=== PATIENT | male | born 1935 | race Caucasian/White ===

== ENCOUNTER 2018-08-24 21:36 | Inpatient (IN) | payer MEDICARE, SELFPAY ==
[2018-08-24 21:38] VITALS: BP 152/93; PULSE 99; RESP 20; TEMP 36.7; O2SAT 93; BMI 40.1
--- NOTE | 2018-08-24 21:42 | EKG12_ITS ---
Test Reason : CP Blood Pressure : / mmHG Vent. Rate : 103 BPM Atrial Rate : 103 BPM P-R Int : 202 ms QRS Dur : 138 ms QT Int : 366 ms P-R-T Axes : 021 -41 023 degrees QTc Int : 479 ms Sinus tachycardia with frequent Premature ventricular complexes Left axis deviation Right bundle branch block Abnormal ECG Confirmed by YELITZA LÓPEZ, EFRA ([id number]), medical transcription editor RADHA BARROSO ([id number]) on 08/27/2018 11:54:36 AM Referred By: ALISE Confirmed By:EFRA TORRE MD
--- NOTE | 2018-08-24 21:49 | RAD_ITS ---
STUDY: X-RAY CHEST REASON FOR EXAM: Male, 82 years old. Chest pain TECHNIQUE: Single frontal view of the chest. COMPARISON: April 29, 2017 FINDINGS: Bibasilar interstitial infiltrates. There is no demonstrated pleural abnormality. Normal size heart. Normal mediastinum and makenzie. Normal visualized pulmonary arteries. Normal visualized aortic arch and descending thoracic aorta. Normal visualized thoracic spine. Normal visualized ribs, clavicles, and shoulders. There is no demonstrated abnormality of the visualized soft tissue structures of the upper abdomen. RAD/Chest 1 View (Portable) IMPRESSION: Bibasilar interstitial infiltrates Electronically Signed: Herber Abraham MD at 22:26 EDT , Service support ,
[2018-08-24 21:55] VITALS: O2SAT 92
[2018-08-24 21:56] VITALS: O2SAT 92
[2018-08-24 22:23] LABS: Absolute Lymphocyte Count 1.64 X10^3/ul (0.83-4.51); Absolute Neutrophil Count 12.4 X10^3/uL (2.0-7.7); Basophil# 0.04 X10^3/uL; Basophil% 0.2 % (0-1); Differential Indicated SCAN CRITERIA MET; Eosinophil# 0.21 X10^3/uL; Eosinophils% 1.3 % (0-5); Hematocrit 44.4 % (40-54); Hemoglobin 15.4 g/dl (13.0-16.5); Lymphocyte # 1.64 X10^3/ul (4.0); Lymphocyte % 10.1 % (19-41); Mean Corp Hgb Conc 34.7 g/gl (32-36); Mean Corpuscular Hgb 29.8 pg (27.0-32.0); Mean Corpuscular Volume 85.9 fL (80-94); Mean Platelet Vol. 10.2 fl (6.2-12.0); Monocyte# 1.79 X10^3/uL; Neutrophil # 12.36 X10^3/uL (2.7-7.7); Neutrophil % 76.4 % (47-70); POSITIVE COUNT NO; POSITIVE DIFFERENTIAL YES; POSITIVE MORPHOLOGY NO; Platelet Count 203 K/mm3 (150-450); RBC Distribution Width CV 12.8 % (11.6-14.6); RBC Distribution Width SD 39.2 fl (35.1-43.9); Red Blood Count 5.17 M/mm3 (4.6-6.2); White Blood Count 16.2 K/mm3 (4.4-11.0)
[2018-08-24 22:29] LABS: International Normalized Ratio 1.2; Prothrombin Time (Protime)PT. 14.9 SECONDS (11.7-14.9)
[2018-08-24 22:36] LABS: Anion Gap 7 (5-15); BUN 23 mg/dL (7-18); Calcium,Total 8.9 mg/dL (8.5-10.1); Chloride 105 mmol/L (98-107); Creatinine, Serum 1.15 mg/dL (0.70-1.30); EST Glomerular Filtration Rate 64 mL/min (>60); Est Glom Filt Rate - Afr Amer 78 mL/min (>60); Estimated Creatinine Clearance 58.17 ml/min; Glucose 110 mg/dL (74-106); Potassium 4.1 mmol/L (3.5-5.1); Sodium Level 139 mmol/L (136-145)
--- NOTE | 2018-08-24 22:46 | EKG12_ITS ---
Test Reason : CP Blood Pressure : / mmHG Vent. Rate : 102 BPM Atrial Rate : 102 BPM P-R Int : 212 ms QRS Dur : 136 ms QT Int : 372 ms P-R-T Axes : 023 -46 030 degrees QTc Int : 484 ms Sinus tachycardia with 1st degree A-V block with Premature atrial complexes with PVC's Left axis deviation Right bundle branch block Abnormal ECG Confirmed by YELITZA LÓPEZ, EFRA ([id number]), electronic news gathering editor RADHA BARROSO ([id number]) on 08/27/2018 11:54:15 AM Referred By: TEO Confirmed By:EFRA TORRE MD
--- NOTE | 2018-08-24 22:46 | CT_ITS ---
We are attempting to reach Mingo Son MD to discuss findings. An addendum with communication details will be sent when the communication is complete. STUDY: CTA CHEST REASON FOR EXAM: Male, 82 years old. Shortness of breath RADIATION DOSAGE (If Supplied By Facility): CTDIvol = ( 17.49 ) mGy, DLP = ( 1213.71 ) mGycm TECHNIQUE: The examination was performed with the intravenous administration of 100ML IV Isovue 370. Post-processing of the angiographic images was performed, with multiplanar reformation and 3D reconstruction. Individualized dose optimization techniques were used for this CT. COMPARISON: Chest x-ray August 24, 2018 FINDINGS: Occlusive filling defects noted within the right and left main pulmonary arteries and extending into the lobar and segmental branches bilaterally. A linear saddle embolism is also noted across the main pulmonary artery. Normal thoracic aorta and visualized great vessels. There is no demonstrated aortic dissection. Normal heart and pericardium. Calcific coronary artery disease. No sue evidence of right ventricular strain. Normal mediastinum. Normal hilar regions. Normal visualized trachea and bronchi. Bibasilar subsegmental atelectasis and congestion. Normal pulmonary parenchyma. Normal pleura. Normal chest wall structures. Normal osseous structures. Normal visualized upper abdomen. CT/CTA Chest W/WO Contrast IMPRESSION: saddle pulmonary embolism and extensive bilateral emboli. No sue evidence of right ventricular strain. Coronary artery disease. Electronically Signed: Herber Abraham MD at 23:33 EDT , Service support ,
[2018-08-24 22:52] LABS: Anisocytosis RARE; Platelet Estimate ADEQUATE (ADEQ)
[2018-08-24] MEDS: Aspirin 81 MG TAB.CHEW 324 MG PO (22:52)
[2018-08-24 22:54] VITALS: BP 164/69; PULSE 100
[2018-08-24] MEDS: 0.9% Normal Saline 1,000 ML 250 ML IV (22:59)
[2018-08-24] MEDS: Ondansetron 4 MG/2 ML Vial IV (22:59)
[2018-08-24] MEDS: Morphine 4 MG/ML Syringe IV (22:59)
[2018-08-24] MEDS: HEPARIN/D5w 25,000 UNITS 25,000 UNITS/250 ML IV.SOLN. 18 UNITS IV (23:30)
[2018-08-24] MEDS: Heparin Injection (Vial) 5,000 UNIT/ML VIAL 11000 UNIT IV (23:30)
--- NOTE | 2018-08-24 23:32 | ED.DCSUM_ITS ---
- ER Visit Summary Date of Service: 08/24/18 Chief Complaint: Chest pain History of Present Illness: The patient is a [address] Hickey and Dr. Flores. He reports that he has chest pain that began 2 hours ago while he was at rest. Is a sharp pain is 10 to 10 hours and out of 10 currently. Is wo rsened by nothing. Is also relieved by nothing. States that he has not had any nausea, vomiting, diaphoresis, shortness of breath. Patient reports that he is never had anything like this before. He does have a history of coronary artery disease and has 1 stent. He states this is not similar to that. He also has a history of PE. He reports that he was on Coumadin and then was transitioned to another medication. He is not on a medication now. However, he is a poor informant. Physical Examination: Vitals: 98.1, 152/93, 99, 20, 93% on 4 L nasal cannula. General: Well-nourished and well-developed. Head: Normocephalic atraumatic. Neck: Supple, no lymphadenopathy. No JVD. Nontender. Cardiovascular: Regular rate and rhythm. 2 out of 6 systolic murmur. Respiratory: No respiratory distress. Clear to auscultation bilaterally. Abdominal: Soft, nontender, nondistended, normal bowel sounds. No guarding, rebound, or peritoneal signs. Back: Nontender. Extremities: Nontender, 1+ edema of his lower extremities bilaterally. Skin: Normal color, no rash. Neurologic: Alert and oriented ?3. Cranial nerves II through XII are intact. Normal strength and sensation. Psych: Normal affect. Test Results: EKG is sinus tach at 103 with right bundle branch block and left axis deviation. There are also PVCs. Unchanged from May 05, 2017. Troponin is negative. INR is 1.2. Chem-7 shows BUN 23 and glucose 110. CBC shows a white count of 16.2 with 76 segmented neutrophils 10 lymphocytes and 11 monocytes. Lactic acid is 1.2. Chest x-ray is read by radiology as bibasilar and interstitial infiltrates. CTA of the chest shows extensive PE bilaterally. No evidence of RV strain. Emergency Department Course and Treatment: Patient had an IV placed. He was given morphine and fentanyl IV. He was started on heparin with bolus. Treatment Plan: Patient was discussed with Dr. Desai. He will be admitted for further evaluation and treatment. Disposition: Admitted in improved, but serious condition. Impression: 1. Pulmonary embolism. 2. Critical care time 30 minutes. This note was generated with [email or web address] dictation software. It may contain incorrect words, spelling, and punctuation that were not noted in review of the chart pr ior to signing ED Disposition - Plan for ED Patient: Disposition: [facility]
[2018-08-24 23:34] VITALS: BP 133/64; PULSE 101; RESP 27; O2SAT 93
[2018-08-24 23:37] LABS: Lactic Acid 1.2 mmol/L (0.4-2.0)
[2018-08-24] MEDS: fentaNYL 100 MCG/2 ML Ampul 50 MCG IV (23:38)
[2018-08-24 23:47] LABS: Partial Thromboplast Time 31.5 Seconds (24.1-36.2)
--- NOTE | 2018-08-24 23:52 | HP.PCM_ITS ---
Problem List (1) Saddle pulmonary embolus Status: Acute (2) Pneumonia Status: Acute (3) Right leg DVT Status: Chronic Qualifiers: Affected thrombotic vein of extremity: unspecified vein of extremity [place] [employer] nicity: chronic Qualified Code(s): I82.501 - Chronic embolism and thrombosis of unspecified deep veins of right lower extremity (4) Presence of stent in coronary artery Status: Chronic Comment: PTCA/ESTRELLA of proximal LAD 05/04/17 (5) Edema leg Status: Chronic (6) HTN (hypertension) Status: Chronic Qualifiers: Hypertension type: essential hypertension Qualified Code(s): I10 - Essential (primary) hypertension History of Present Illness Date of Admission: 08/24/18 Chief Complaint: Shortness of breath and chest pain The patient is a 82 year old M with PMH as below who presents with chest pain shortness of breath. He states that both started today suddenly without rad iation. He also states that he has been having a dry nonproductive cough since . His was in the room had asked him to come to the ER earlier but he refused until today when he said the shortness of breath and the chest pain started. In the ER CTA of his chest demonstrated a large saddle pulmonary embolism and a troponin was obtained which was normal. He does have a history of DVT and is a poor historian as is the . He states that he was on Coumadin initially and then may have been transition to Xarelto though he states that he has not been taking it for several weeks because 1 of his outpatient physicians was concerned about the bleeding risk since he is on aspirin and Plavix because of a stent placed in May of last year. In the ER he was afebrile but did have a leukocytosis to 16 as well as tachycardia and tachypnea. Past Medical History Past Medical History (Chronic Problems): Chronic Problems (Last Reviewed 08/22/18 @ 14:18 by Carolyn Norwood) Right leg DVT (Chronic) Presence of stent in coronary artery (Chronic 05/04/17) PTCA/ESTRELLA of proximal LAD 05/04/17 Atherosclerosis of coronary artery of [place] heart without angina pectoris (Chronic) PTCA/ESTRELLA of proximal LAD 05/04/17 Edema leg (Chronic) HTN (hypertension) (Chronic) Medical History: Medical History (Last Reviewed 08/22/18 @ 14:18 by Carolyn Norwood) Right leg DVT (Chronic) I82.401 Atherosclerosis of coronary artery of [place] heart without angina pectoris (Chronic) I25.10 PTCA/ESTRELLA of proximal LAD 05/04/17 Edema leg (Chronic) R60.0 HTN (hypertension) (Chronic) I10 Incontinence R32 BPH (benign prostatic hyperplasia) N40.0 Dementia F03.90 Rhabdomyolysis M62.82 BPH (benign prostatic hyperplasia) (Inactive) N40.0 Bronchitis (Inactive) J40 Cellulitis of right lower extremity (Inactive) L03.115 Hx of deep venous thrombosis (Inactive) Z86.718 Influenza A (Inactive) J10.1 Rhabdomyolysis (Inactive) M62.82 Right leg DVT (Inactive) I82.401 Tinea pedis of right foot (Inactive) B35.3 Troponin I above reference range (Inactive) R74.8 Urinary retention due to benign prostatic hyperplasia (Inactive) N40.1, R33.8 Weakness (Inactive) R53.1 Allergies Penicillins [PCN] Allergy (Verified 08/24/18 21:37) Rash Home Medications: Ambulatory Orders Medication Instructions Recorded Lisinopril [Zestril] 30 mg PO DAILY 06/16/15 Acetaminophen [Tylenol Tablet] 650 mg PO Q6H PRN PRN #0 tab 05/05/17 Aspirin E.C. [Ecotrin] 81 mg PO DAILY@0800 #30 tab 05/05/17 Atorvastatin Calcium [Lipitor] 40 mg PO QHS #30 tab 05/05/17 Carvedilol [Coreg (Beta Jose)] 3.125 mg PO BID #60 tab 05/05/17 Clopidogrel Bisulfate [Plavix] 75 mg PO DAILY #30 tab 05/05/17 Finasteride [Proscar] 5 mg PO DAILY #30 tab 05/05/17 furosemide 20 mg tablet 20 mg PO QDAY 06/23/17 tamsulosin 0.4 mg capsule 0.8 mg PO QHS cap 10/27/17 rivaroxaban 20 mg tablet 20 mg PO DAILY 02/15/18 saw palmetto fruit 450 mg capsule 450 mg PO BID 02/15/18 Surgical History: Surgical History (Last Reviewed 08/22/18 @ 14:18 by Carolyn Norwood) Presence of stent in coronary artery (Chronic) Onset Date: 05/04/17 Z95.5 PTCA/ESTRELLA of proximal LAD 05/04/17 Surgical History: noncontributory Psychiatric History: No pertinent psych hx Smoking Status: Former smoker Tobacco Use: Cigarettes Alcohol: None Drugs: None - *Family History Maternal Family History: Family History (Last Reviewed 08/22/18 @ 14:19 by Carolyn Norwood) Father Myocardial infarction History Items: Unknown Paternal Family History: Family History (Last Reviewed 08/22/18 @ 14:19 by Carolyn Norwood) Father Myocardial infarction History Items: Unknown Review of Systems Constitutional: Denies: Chills, Fever, Weight Change HEENT: Denies: Head Aches, Sinus Congestion, Sinus Drainage Cardiovascular: Reports: Chest Pain. Denies: Palpitations Respiratory: Reports: Cough, Shortness of Breath. Denies: Shortness of breath at rest, Sputum production Gastrointestinal: Denies: Abdominal Pain, Nausea, Vomiting Genitourinary: Denies: Dysuria Musculoskeletal: Denies: Joint Pain, Joint Tenderness Skin: Denies: Rash, Wounds Neurological: Denies: Numbness, Tingling, Focal weakness Psychiatric: Denies: Anxiety, Depression Hematologic/ Lymphatic: Denies: Easy Bruising, Easy Bleeding VTE Information - Inpt Only VTE Present on Admission: No Patient Problems: Active and Suspected Problems (Last Reviewed 08/22/18 @ 14:18 by Carolyn Norwood) Saddle pulmonary embolus (Acute) Pneumonia (Acute) - Physical Exam General: Alert, Oriented x3, Cooperative, No apparent distress HEENT: Atraumatic, PERRLA, EOMI, Normocephalic Oral: Dry Mucosa Neck: Supple, No JVD, Trachea Midline Lungs: Clear to auscultation, Normal air movement, No rhonchi, No wheeze, No rales, Diminished Cardiovascular: Regular Rhythm, Normal S1, Normal S2, No murmurs, Tachycardic Abdomen: Soft, Non Tender, Non-Distended, No Hepato-splenomegaly Extremities: Capillary Refill Less than 3 Seconds, Edema - Trace Skin: No rashes, No breakdown Neurological: Neuro grossly intact, Sensory exam intact to light touch and pain Psych/Mental Status: Normal Affect, Appropriate Vital Signs Temp Pulse Resp BP Pulse Ox 98.1 F 101 H 27 H 133/64 H 93 08/24/18 21:38 08/24/18 23:34 08/24/18 23:34 08/24/18 23:34 08/24/18 23:34 Oxygen Flow Rate (L/min) 5 Oxygen Delivery Method Nasal Cannula Weight: 321 lb 6.943 oz Body Mass Index (BMI) 40.1 Laboratory Tests Past 24 Hrs 08/24/18 08/24/18 08/24/18 22:05 22:05 22:05 WBC 16.2 H RBC 5.17 Hgb 15.4 Hct 44.4 MCV 85.9 MCH 29.8 MCHC 34.7 RDW 12.8 RDW Differential 39.2 Plt Count 203 MPV 10.2 Immature Gran % (Auto) 1.000 H Neut % (Auto) 76.4 H Lymph % (Auto) 10.1 L [place] % (Auto) 11.0 H Eos % (Auto) 1.3 Baso % (Auto) 0.2 Absolute Neuts (auto) 12.4 H Absolute Lymphs (auto) 1.64 Total Counted Not Reportable Differential Comment SEE COMMENT Diff Path Review May foll Platelet Estimate ADEQUATE Anisocytosis RARE PT 14.9 INR 1.2 APTT Sodium 139 Potassium 4.1 Chloride 105 Carbon Dioxide 27.0 Anion Gap 7 BUN 23 H Creatinine 1.15 Estim Creat Clear Calc 58.17 Est GFR (MDRD) Af Amer 78 Est GFR (MDRD) Non-Af 64 BUN/Creatinine Ratio 20.0 Glucose 110 H Lactic Acid Calcium 8.9 Troponin I < 0.015 08/24/18 08/24/18 22:05 23:01 WBC RBC Hgb Hct MCV MCH MCHC RDW RDW Differential Plt Count MPV Immature Gran % (Auto) Neut % (Auto) Lymph % (Auto) [place] % (Auto) Eos % (Auto) Baso % (Auto) Absolute Neuts (auto) Absolute Lymphs (auto) Total Counted Differential Comment Diff Path Review Platelet Estimate Anisocytosis PT INR APTT Pending Sodium Potassium Chloride Carbon Dioxide Anion Gap BUN Creatinine Estim Creat Clear Calc Est GFR (MDRD) Af Amer Est GFR (MDRD) Non-Af BUN/Creatinine Ratio Glucose Lactic Acid 1.2 Calcium Troponin I Assessment/Plan All Active Problems (Last Reviewed 08/22/18 @ 14:18 by Carolyn Nrowood) Saddle pulmonary embolus (Acute) Pneumonia (Acute) Abnormal stress test (Resolved) 1. Bilateral gram-positive pneumonia at the bases/saddle pulmonary embolism/history of DVT -Given the fact that he is likely not been on any blood thinners, will reinstitute Xarelto with his first dose now and then his next dose at 8 AM -He was given a heparin bolus and a drip in the ER which can be discontinued after his initial dose of Xarelto -We will hold his aspirin and just continue his Plavix -He is hemodynamically stable therefore no need to obtain an echo -We will continue with Rocephin and azithromycin for his pneumonia, will not consider as sepsis given that the Sirs criteria are probably met because of the PE and his lactic acid is normal at 1.2 -Blood cultures are pending 2. CAD status post stent in May 2017/HLD/HTN -We will hold his aspirin but continue with the Plavix given that he should be on lifelong Xarelto -Continue with the Lipitor, Coreg, lisinopril, but will hold the Lasix for now 3. BPH -Stable -Continue with Proscar and Flomax DVT: Xarelto Code Visit Inpatient E&M: 62442 Init Hosp L3
[2018-08-25] VITALS (16 sets, daily range): BP systolic 105–152; BP diastolic 50–79; PULSE 67–97; RESP 18–21; TEMP 36.4–37.5; O2SAT 92–96; BMI 39.5
[2018-08-25] MEDS: Ceftriaxone 1 GM/50 ML BAG IV (00:18)
--- NOTE | 2018-08-25 01:13 | HP.PCM_ITS ---
Problem List (1) Saddle pulmonary embolus Status: Acute (2) Pneumonia Status: Acute (3) Right leg DVT Status: Chronic Qualifiers: Affected thrombotic vein of extremity: unspecified vein of extremity Information Coordinator nicity: chronic Qualified Code(s): I82.501 - Chronic embolism and thrombosis of unspecified deep veins of right lower extremity (4) Presence of stent in coronary artery Status: Chronic Comment: PTCA/ESTRELLA of proximal LAD 05/04/17 (5) HTN (hypertension) Status: Chronic Qualifiers: Hypertension type: essential hypertension Qualified Code(s): I10 - Essential (primary) hypertension History of Present Illness Date of Admission: 08/24/18 Chief Complaint: Shortness of breath and chest pain The patient is a 82 year old M with PMH as below who presents with chest pain shortness of breath. He states that both started today suddenly without radiation. He also states that he has been having a dry nonproductive cough since . His was in the room had asked him to come to the ER earlier but he refused until today when he said the shortness of breath and the chest pain started. In the ER CTA of his chest demonstrated a large saddle pulmonary embolism and a troponin was obtained which was normal. He does have a history of DVT and is a poor historian as is the . He states that he was on Coumadin initially and then may have been transition to Xarelto though he states that he has not been taking it for several weeks because 1 of his outpatient physicians was concerned about the bleeding risk since he is on aspirin and Plavix because of a stent placed in May of last year. In the ER he was afebrile but did have a leukocytosis to 16 as well as tachycardia and tachypnea. Past Medical History Past Medical History (Chronic Problems): Chronic Problems (Last Reviewed 08/22/18 @ 14:18 by Carolyn Norwood) Right leg DVT (Chronic) Presence of stent in coronary artery (Chronic 05/04/17) PTCA/ESTRELLA of proximal LAD 05/04/17 Atherosclerosis of coronary artery of [place] heart without angina pectoris (Chronic) PTCA/ESTRELLA of proximal LAD 05/04/17 Edema leg (Chronic) HTN (hypertension) (Chronic) Medical History: Medical History (Last Reviewed 08/22/18 @ 14:18 by Carolyn Norwood) Right leg DVT (Chronic) I82.401 Atherosclerosis of coronary artery of [place] heart without angina pectoris (Chronic) I25.10 PTCA/ESTRELLA of proximal LAD 05/04/17 Edema leg (Chronic) R60.0 HTN (hypertension) (Chronic) I10 Incontinence R32 BPH (benign prostatic hyperplasia) N40.0 Dementia F03.90 Rhabdomyolysis M62.82 BPH (benign prostatic hyperplasia) (Inactive) N40.0 Bronchitis (Inactive) J40 Cellulitis of right lower extremity (Inactive) L03.115 Hx of deep venous thrombosis (Inactive) Z86.718 Influenza A (Inactive) J10.1 Rhabdomyolysis (Inactive) M62.82 Right leg DVT (Inactive) I82.401 Tinea pedis of right foot (Inactive) B35.3 Troponin I above reference range (Inactive) R74.8 Urinary retention due to benign prostatic hyperplasia (Inactive) N40.1, R33.8 Weakness (Inactive) R53.1 Allergies Penicillins [PCN] Allergy (Verified 08/24/18 21:37) Rash Home Medications: Ambulatory Orders Medication Instructions Recorded Lisinopril [Zestril] 30 mg PO DAILY 06/16/15 Acetaminophen [Tylenol Tablet] 650 mg PO Q6H PRN PRN #0 tab 05/05/17 Aspirin E.C. [Ecotrin] 81 mg PO DAILY@0800 #30 tab 05/05/17 Atorvastatin Calcium [Lipitor] 40 mg PO QHS #30 tab 05/05/17 Carvedilol [Coreg (Beta Jose)] 3.125 mg PO BID #60 tab 05/05/17 Clopidogrel Bisulfate [Plavix] 75 mg PO DAILY #30 tab 05/05/17 Finasteride [Proscar] 5 mg PO DAILY #30 tab 05/05/17 furosemide 20 mg tablet 20 mg PO QDAY 06/23/17 tamsulosin 0.4 mg capsule 0.8 mg PO QHS cap 10/27/17 rivaroxaban 20 mg tablet 20 mg PO DAILY 02/15/18 saw palmetto fruit 450 mg capsule 450 mg PO BID 02/15/18 Surgical History: Surgical History (Last Reviewed 08/22/18 @ 14:18 by Carolyn Norwood) Presence of stent in coronary artery (Chronic) Onset Date: 05/04/17 Z95.5 PTCA/ESTRELLA of proximal LAD 05/04/17 Surgical History: noncontributory Psychiatric History: No pertinent psych hx Smoking Status: Former smoker Tobacco Use: Cigarettes Alcohol: None Drugs: None - *Family History Maternal Family History: Family History (Last Reviewed 08/22/18 @ 14:19 by Carolyn Norwood) Father Myocardial infarction History Items: Unknown Paternal Family History: Family History (Last Reviewed 08/22/18 @ 14:19 by Carolyn Norwood) Father Myocardial infarction History Items: Unknown Review of Systems Constitutional: Denies: Chills, Fever, Weight Change HEENT: Denies: Head Aches, Sinus Congestion, Sinus Drainage Cardiovascular: Reports: Chest Pain. Denies: Palpitations Respiratory: Reports: Cough, Shortness of Breath. Denies: Shortness of breath at rest, Sputum production Gastrointestinal: Denies: Abdominal Pain, Nausea, Vomiting Genitourinary: Denies: Dysuria Musculoskeletal: Denies: Joint Pain, Joint Tenderness Skin: Denies: Rash, Wounds Neurological: Denies: Numbness, Tingling, Focal weakness Psychiatric: Denies: Anxiety, Depression Hematologic/ Lymphatic: Denies: Easy Bruising, Easy Bleeding VTE Information - Inpt Only VTE Present on Admission: No Patient Problems: Active and Suspected Problems (Last Reviewed 08/22/18 @ 14:18 by Carolyn Norwood) Saddle pulmonary embolus (Acute) Pneumonia (Acute) - Physical Exam General: Alert, Oriented x3, Cooperative, No apparent distress HEENT: Atraumatic, PERRLA, EOMI, Normocephalic Oral: Dry Mucosa Neck: Supple, No JVD, Trachea Midline Lungs: Clear to auscultation, Normal air movement, No rhonchi, No wheeze, No rales, Diminished Cardiovascular: Regular Rhythm, Normal S1, Normal S2, No murmurs, Tachycardic Abdomen: Soft, Non Tender, Non-Distended, No Hepato-splenomegaly Extremities: Capillary Refill Less than 3 Seconds, Edema - Trace Skin: No rashes, No breakdown Neurological: Neuro grossly intact, Sensory exam intact to light touch and pain Psych/Mental Status: Normal Affect, Appropriate Vital Signs Temp Pulse Resp BP Pulse Ox 99.5 F H 97 20 H 152/78 H 93 08/25/18 00:42 08/25/18 00:42 08/25/18 00:42 08/25/18 00:42 08/25/18 00:42 Oxygen Flow Rate (L/min) 5 Oxygen Delivery Method Nasal Cannula Weight: 316 lb 5.813 oz Body Mass Index (BMI) 39.5 Laboratory Tests Past 24 Hrs 08/24/18 08/24/18 08/24/18 22:05 22:05 22:05 WBC 16.2 H RBC 5.17 Hgb 15.4 Hct 44.4 MCV 85.9 MCH 29.8 MCHC 34.7 RDW 12.8 RDW Differential 39.2 Plt Count 203 MPV 10.2 Immature Gran % (Auto) 1.000 H Neut % (Auto) 76.4 H Lymph % (Auto) 10.1 L [place] % (Auto) 11.0 H Eos % (Auto) 1.3 Baso % (Auto) 0.2 Absolute Neuts (auto) 12.4 H Absolute Lymphs (auto) 1.64 Total Counted Not Reportable Differential Comment SEE COMMENT Diff Path Review May foll Platelet Estimate ADEQUATE Anisocytosis RARE PT 14.9 INR 1.2 APTT Sodium 139 Potassium 4.1 Chloride 105 Carbon Dioxide 27.0 Anion Gap 7 BUN 23 H Creatinine 1.15 Estim Creat Clear Calc 58.17 Est GFR (MDRD) Af Amer 78 Est GFR (MDRD) Non-Af 64 BUN/Creatinine Ratio 20.0 Glucose 110 H Lactic Acid Calcium 8.9 Troponin I < 0.015 08/24/18 08/24/18 22:05 23:01 WBC RBC Hgb Hct MCV MCH MCHC RDW RDW Differential Plt Count MPV Immature Gran % (Auto) Neut % (Auto) Lymph % (Auto) [place] % (Auto) Eos % (Auto) Baso % (Auto) Absolute Neuts (auto) Absolute Lymphs (auto) Total Counted Differential Comment Diff Path Review Platelet Estimate Anisocytosis PT INR APTT 31.5 Sodium Potassium Chloride Carbon Dioxide Anion Gap BUN Creatinine Estim Creat Clear Calc Est GFR (MDRD) Af Amer Est GFR (MDRD) Non-Af BUN/Creatinine Ratio Glucose Lactic Acid 1.2 Calcium Troponin I Assessment/Plan All Active Problems (Last Reviewed 08/22/18 @ 14:18 by Carolyn Norwood) Saddle pulmonary embolus (Acute) Pneumonia (Acute) Abnormal stress test (Resolved) 1. Bilateral gram-positive pneumonia at the bases/saddle pulmonary embolism -Given the fact that he is likely not been on any blood thinners, will reinstitute Xarelto with his first dose now and then his next dose at 8 AM -He was given a heparin bolus and a drip in the ER which can be discontinued after his initial dose of Xarelto -We will hold his aspirin and just continue his Plavix -He is hemodynamically stable therefore no need to obtain an echo -We will continue with Rocephin and azithromycin for his pneumonia -Blood cultures are pending 2. Coronary artery disease status post stent in May 2017/HLD/HTN
[2018-08-25] MEDS: Rivaroxaban 15 MG Tablet PO ×3 (01:37→16:19)
[2018-08-25] MEDS: 0.9% NaCl Peripheral Flush Adult/Peds IV ×3 (01:37→22:00)
--- NOTE | 2018-08-25 01:39 | NURSING ---
SPOKE TO [facility] STATED TO GIVE XARELTO THEN DISCONTINUED HEPARIN DRIP.
[2018-08-25] MEDS: Morphine 2 MG/ML Syringe IV (02:25)
[2018-08-25] MEDS: 0.9% Normal Saline 1,000 ML 100 ML IV (05:33)
[2018-08-25 08:07] LABS: Absolute Lymphocyte Count 2.17 X10^3/ul (0.83-4.51); Absolute Neutrophil Count 10.5 X10^3/uL (2.0-7.7); Basophil# 0.04 X10^3/uL; Basophil% 0.3 % (0-1); Eosinophils% 0.7 % (0-5); Hematocrit 41.1 % (40-54); Hemoglobin 13.8 g/dl (13.0-16.5); Lymphocyte # 2.17 X10^3/ul (4.0); Lymphocyte % 14.4 % (19-41); Mean Corp Hgb Conc 33.6 g/gl (32-36); Mean Corpuscular Hgb 29.7 pg (27.0-32.0); Mean Corpuscular Volume 88.4 fL (80-94); Mean Platelet Vol. 10.1 fl (6.2-12.0); Monocyte# 2.19 X10^3/uL; Monocyte% 14.5 % (0-10); Neutrophil # 10.46 X10^3/uL (2.7-7.7); Neutrophil % 69.4 % (47-70); Platelet Count 161 K/mm3 (150-450); RBC Distribution Width CV 12.8 % (11.6-14.6); RBC Distribution Width SD 40.5 fl (35.1-43.9); Red Blood Count 4.65 M/mm3 (4.6-6.2); White Blood Count 15.1 K/mm3 (4.4-11.0)
[2018-08-25 08:17] LABS: Anion Gap 5 (5-15); BUN 21 mg/dL (7-18); BUN/Creat Ratio 20.6 RATIO (10-20); Calcium,Total 8.2 mg/dL (8.5-10.1); Chloride 106 mmol/L (98-107); Creatinine, Serum 1.02 mg/dL (0.70-1.30); EST Glomerular Filtration Rate 74 mL/min (>60); Est Glom Filt Rate - Afr Amer 90 mL/min (>60); Estimated Creatinine Clearance 65.58 ml/min; Glucose 108 mg/dL (74-106); Potassium 4.1 mmol/L (3.5-5.1); Sodium Level 139 mmol/L (136-145)
[2018-08-25 08:33] LABS: Differential Indicated SCAN CRITERIA MET; POSITIVE COUNT NO; POSITIVE DIFFERENTIAL YES; POSITIVE MORPHOLOGY NO
[2018-08-25 09:06] LABS: Differential Comment SCANNED
--- NOTE | 2018-08-25 09:21 | PCM.PN.HOSP ---
Patient Problems: Active and Suspected Problems (Last Reviewed 08/22/18 @ 14:18 by Carolyn Norwood) Saddle pulmonary embolus (Acute) Pneumonia (Acute) Subjective: Patient is an 82-year-old gentleman with previous history of DVT involving the lower extremity who presented with significant chest discomfort. Imaging studies obtained in the emergency department demonstrated saddle pulmonary embolism and extensive bilateral emboli. No sue evidence of right ventricular strain. Patient admitted to a monitored bed for further management Objective: GENERAL: cooperative HEENT: Atraumatic; moist oral mucosa EYES; Anicteric, Normal Conjunctiva NECK; supple, normal thyroid, no distended JVD. RESPIRATORY: Diminished to auscultation bilaterally, CARDIOVASCULAR: Regular S1 S2, GI: soft, non-tender, normoactive bowel sounds, : No Renal angle tenderness; EXTREMITIES: No edema, no clubbing, no cyanosis. MUSCULOSKELETAL: No Joint Tenderness; NEURO: Awake; no lateralizing signs. SKIN: No Rash PSYCH; Normal affect Vitals/I&O's: Vital Signs Temp Pulse Resp BP Pulse Ox 98.9 F 84 18 140/73 H 93 08/25/18 05:35 08/25/18 07:41 08/25/18 05:35 08/25/18 05:35 08/25/18 05:35 Oxygen Flow Rate (L/min) 5 Oxygen Delivery Method Nasal Cannula Weight: 143.5 kg Body Mass Index (BMI) 39.5 Intake and Output for Last 24 Hours 08/23/18 08/24/18 08/25/18 23:59 23:59 23:59 Intake Total 778 / 778 Balance 778 / 778 Laboratory Results 08/24/18 22:05: WBC 16.2 H, RBC 5.17, Hgb 15.4, Hct 44.4, MCV 85.9, MCH 29.8, MCHC 34.7, RDW 12.8, RDW Differential 39.2, Plt Count 203, MPV 10.2, Immature Gran % (Auto) 1.000 H, Neut % (Auto) 76.4 H, Lymph % (Auto) 10.1 L, [place] % (Auto) 11.0 H, Eos % (Auto) 1.3, Baso % (Auto) 0.2, Absolute Neuts (auto) 12.4 H, Absolute Lymphs (auto) 1.64, Total Counted Not Reportable, Differential Comment SEE COMMENT, Diff Path Review May foll, Platelet Estimate ADEQUATE, Anisocytosis RARE 08/24/18 22:05: PT 14.9, INR 1.2 08/24/18 22:05: Sodium 139, Potassium 4.1, Chloride 105, Carbon Dioxide 27.0, Anion Gap 7, BUN 23 H, Creatinine 1.15, Estim Creat Clear Calc 58.17, Est GFR (MDRD) Af Amer 78, Est GFR (MDRD) Non-Af 64, BUN/Creatinine Ratio 20.0, Glucose 110 H, Calcium 8.9, Troponin I < 0.015 08/24/18 22:05: APTT 31.5 08/24/18 23:01: Lactic Acid 1.2 08/25/18 06:45: Sodium 139, Potassium 4.1, Chloride 106, Carbon Dioxide 28.0, Anion Gap 5, BUN 21 H, Creatinine 1.02, Estim Creat Clear Calc 65.58, Est GFR (MDRD) Af Amer 90, Est GFR (MDRD) Non-Af 74, BUN/Creatinine Ratio 20.6 H, Glucose 108 H, Calcium 8.2 L 08/25/18 06:45: WBC 15.1 H, RBC 4.65, Hgb 13.8, Hct 41.1, MCV 88.4, MCH 29.7, MCHC 33.6, RDW 12.8, RDW Differential 40.5, Plt Count 161, MPV 10.1, Immature Gran % (Auto) 0.700, Neut % (Auto) 69.4, Lymph % (Auto) 14.4 L, Cannon % (Auto) 14.5 H, Eos % (Auto) 0.7, Baso % (Auto) 0.3, Absolute Neuts (auto) 10.5 H, Absolute Lymphs (auto) 2.17, Total Counted Not Reportable, Differential Comment SCANNED Current Medications Sodium Chloride () 1,000 mls @ 100 mls/hr IV .Q10H [facility] Last Admin: 08/25/18 05:33 Dose: 100 mls/hr Azithromycin 500 mg/ Dextrose 255 mls @ 250 mls/hr IV Q24H [facility] Ceftriaxone Sodium 2 gm/ (Sodium Chloride) 50 mls @ 100 mls/hr IV Q24H [facility] Sodium Chloride () 250 mls @ 15 mls/hr IV .[id number] PRN PRN Reason: SALINE FLUSH Magnesium Hydroxide (Milk Of Magnesia) 30 ml PO DAILY PRN PRN Reason: Constipation Rivaroxaban (Xarelto) 15 mg PO BIDCM [facility] Last Admin: 08/25/18 08:20 Dose: 15 mg Sodium Chloride () 5 - 15 ml IV UD PRN PRN Reason: SALINE FLUSH Last Admin: 08/25/18 02:25 Dose: 10 ml Medical Necessity - Tobacco Use Smoking Status: Former smoker Tobacco Use: Cigarettes Assessment/Plan All Active Problems (Last Reviewed 08/22/18 @ 14:18 by Carolyn Norwood) Saddle pulmonary embolus (Acute) Pneumonia (Acute) Abnormal stress test (Resolved) Patient is an 82-year-old gentleman with previous history of DVT involving the lower extremity who presented with significant chest discomfort. Imaging studies obtained in the emergency department demonstrated saddle pulmonary embolism and extensive bilateral emboli. No sue evidence of right ventricular strain. Patient admitted to a monitored bed for further management 1. 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 As stated above patient admitted to monitored bed systemic anticoagulation with heparin initiated with plans to switch to Xarelto. Echo ordered for RV function assessment 2. Bilateral pulmonary infiltrate my suspicion is more for pulmonary infarction given how extensive patient's VTE was patient however 2 days low-grade fever (his VTE could explain for that however he had elevated WBC count and was subsequently started on Rocephin and Zithromax 3. Previous history of DVT 4. CAD status post stent in May 2017 patient is on dual antiplatelet therapy 5. Hypertension-blood pressure controlled, home medications continued with dose adjustment as needed 6. Dyslipidemia-patient is on statin therapy, continued at home dose 7. BPH patient is on Proscar and Flomax 8. Obesity with BMI of 39.4 Active Medications Acetaminophen (Tylenol) 650 mg PO Q6H PRN PRN PRN Reason: PAIN Aspirin (Ecotrin) 81 mg PO DAILY@0800 [facility] Atorvastatin Calcium (Lipitor) 40 mg PO QHS [facility] Carvedilol (Coreg) 3.125 mg PO BID [facility] Clopidogrel Bisulfate (Plavix) 75 mg PO DAILY [facility] Finasteride (Proscar) 5 mg PO DAILY [facility] Azithromycin 500 mg/ Dextrose 255 mls @ 250 mls/hr IV Q24H [facility] Ceftriaxone Sodium 2 gm/ (Sodium Chloride) 50 mls @ 100 mls/hr IV Q24H [facility] Sodium Chloride () 250 mls @ 15 mls/hr IV .[id number] PRN PRN Reason: SALINE FLUSH Magnesium Hydroxide (Milk Of Magnesia) 30 ml PO DAILY PRN PRN Reason: Constipation Morphine Sulfate () 4 mg IV Q3H PRN PRN PRN Reason: SEVERE PAIN (6-10/10) Non-Formulary Medication (Lisinopril [Zestril]) 30 mg PO DAILY [facility] Oxycodone HCl (Oxyir) 5 mg PO Q4H PRN PRN PRN Reason: PAIN Rivaroxaban (Xarelto) 15 mg PO BIDCM [facility] Last Admin: 08/25/18 08:20 Dose: 15 mg Sodium Chloride () 5 - 15 ml IV UD PRN PRN Reason: SALINE FLUSH Last Admin: 08/25/18 02:25 Dose: 10 ml Tamsulosin HCl (Flomax) 0.8 mg PO QHS [facility] Clinical Impression(s) from Imaging Studies Chest X-Ray 08/24/18 21:49 IMPRESSION: Bibasilar interstitial infiltrates Electronically Signed: Herber Abraham MD at 22:26 EDT , Service support , Chest CTA 08/24/18 22:46 IMPRESSION: saddle pulmonary embolism and extensive bilateral emboli. No sue evidence of right ventricular strain. Coronary artery disease. Electronically Signed: Herber Abraham MD at 23:33 EDT , Service support , ADDENDUM: 08/24/18 2350 IMPRESSION: saddle pulmonary embolism and extensive bilateral emboli. No sue evidence of right ventricular strain. Coronary artery disease. N.B. : The above information has been verbally conveyed by Herber Abraham MD to Mingo Son MD, on 08/24/2018 23:43:12 (ET). Electronically Signed: Herber Abraham MD at 23:33 EDT , Service support , Code Visit Inpatient E&M: 66673 Subs Hosp L3
--- NOTE | 2018-08-25 09:26 | PN_ITS ---
Patient Problems: Active and Suspected Problems (Last Reviewed 08/22/18 @ 14:18 by Carolyn Norwood) Saddle pulmonary embolus (Acute) Pneumonia (Acute) Subjective: Patient is an 82-year-old gentleman with previous history of DVT involving the lower extremity who presented with significant chest discomfort. Imaging studies obtained in the emergency department demonstrated saddle pulmonary embolism and extensive bilateral emboli. No sue evidence of right ventricular strain. Patient admitted to a monitored bed for further management Objective: GENERAL: cooperative HEENT: Atraumatic; moist oral mucosa EYES; Anicteric, Normal Conjunctiva NECK; supple, normal thyroid, no distended JVD. RESPIRATORY: Diminished to auscultation bilaterally, CARDIOVASCULAR: Regular S1 S2, GI: soft, non-tender, normoactive bowel sounds, : No Renal angle tenderness; EXTREMITIES: No edema, no clubbing, no cyanosis. MUSCULOSKELETAL: No Joint Tenderness; NEURO: Awake; no lateralizing signs. SKIN: No Rash PSYCH; Normal affect Vitals/I&O's: Vital Signs Temp Pulse Resp BP Pulse Ox 98.9 F 84 18 140/73 H 93 08/25/18 05:35 08/25/18 07:41 08/25/18 05:35 08/25/18 05:35 08/25/18 05:35 Oxygen Flow Rate (L/min) 5 Oxygen Delivery Method Nasal Cannula Weight: 143.5 kg Body Mass Index (BMI) 39.5 Intake and Output for Last 24 Hours 08/23/18 08/24/18 08/25/18 23:59 23:59 23:59 Intake Total 778 / 778 Balance 778 / 778 Laboratory Results 08/24/18 22:05: WBC 16.2 H, RBC 5.17, Hgb 15.4, Hct 44.4, MCV 85.9, MCH 29.8, MCHC 34.7, RDW 12.8, RDW Differential 39.2, Plt Count 203, MPV 10.2, Immature Gran % (Auto) 1.000 H, Neut % (Auto) 76.4 H, Lymph % (Auto) 10.1 L, [place] % (Auto) 11.0 H, Eos % (Auto) 1.3, Baso % (Auto) 0.2, Absolute Neuts (auto) 12.4 H , Absolute Lymphs (auto) 1.64, Total Counted Not Reportable, Differential Comment SEE COMMENT, Diff Path Review May foll, Platelet Estimate ADEQUATE, Anisocytosis RARE 08/24/18 22:05: PT 14.9, INR 1.2 08/24/18 22:05: Sodium 139, Potassium 4.1, Chloride 105, Carbon Dioxide 27.0, Anion Gap 7, BUN 23 H, Creatinine 1.15, Estim Creat Clear Calc 58.17, Est GFR (MDRD) Af Amer 78, Est GFR (MDRD) Non-Af 64, BUN/Creatinine Ratio 20.0, Glucose 110 H, Calcium 8.9, Troponin I < 0.015 08/24/18 22:05: APTT 31.5 08/24/18 23:01: Lactic Acid 1.2 08/25/18 06:45: Sodium 139, Potassium 4.1, Chloride 106, Carbon Dioxide 28.0, Anion Gap 5, BUN 21 H, Creatinine 1.02, Estim Creat Clear Calc 65.58, Est GFR (MDRD) Af Amer 90, Est GFR (MDRD) Non-Af 74, BUN/Creatinine Ratio 20.6 H, Glucose 108 H, Calcium 8.2 L 08/25/18 06:45: WBC 15.1 H, RBC 4.65, Hgb 13.8, Hct 41.1, MCV 88.4, MCH 29.7, MCHC 33.6, RDW 12.8, RDW Differential 40.5, Plt Count 161, MPV 10.1, Immature Gran % (Auto) 0.700, Neut % (Auto) 69.4, Lymph % (Auto) 14.4 L, [place] % (Auto) 14.5 H, Eos % (Auto) 0.7, Baso % (Auto) 0.3, Absolute Neuts (auto) 10.5 H, Absolute Lymphs (auto) 2.17, Total Counted Not Reportable, Differential Comment SCANNED Current Medications Sodium Chloride () 1,000 mls @ 100 mls/hr IV .Q10H [facility] Last Admin: 08/25/18 05:33 Dose: 100 mls/hr Azithromycin 500 mg/ Dextrose 255 mls @ 250 mls/hr IV Q24H [facility] Ceftriaxone Sodium 2 gm/ (Sodium Chloride) 50 mls @ 100 mls/hr IV Q24H [facility] Sodium Chloride () 250 mls @ 15 mls/hr IV .[id number] PRN PRN Reason: SALINE FLUSH Magnesium Hydroxide (Milk Of Magnesia) 30 ml PO DAILY PRN PRN Reason: Constipation Rivaroxaban (Xarelto) 15 mg PO BIDCM [facility] Last Admin: 08/25/18 08:20 Dose: 15 mg Sodium Chloride () 5 - 15 ml IV UD PRN PRN Reason: SALINE FLUSH Last Admin: 08/25/18 02:25 Dose: 10 ml Medical Necessity - Tobacco Use Smoking Status: Former smoker Tobacco Use: Cigarettes Assessment/Plan All Active Problems (Last Reviewed 08/22/18 @ 14:18 by Carolyn Norwood) Saddle pulmonary embolus (Acute) Pneumonia (Acute) Abnormal stress test (Resolved) Patient is an 82-year-old gentleman with previous history of DVT involving the lower extremity who presented with significant chest discomfort. Imaging studies obtained in the emergency department demonstrated saddle pulmonary embolism and extensive bilateral emboli. No sue evidence of right ventricular strain. Patient admitted to a monitored bed for further management 1. 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 As stated above patient admitted to monitored bed systemic anticoagulation with heparin initiated with plans to switch to Xarelto. Echo ordered for RV function assessment 2. Bilateral pulmonary infiltrate my suspicion is more for pulmonary infarction given how extensive patient's VTE was patient however 2 days low-grade fever (his VTE could explain for that however he had elevated WBC count and was subsequently started on Rocephin and Zithromax 3. Previous history of DVT 4. CAD status post stent in May 2017 patient is on dual antiplatelet therapy 5. Hypertension-blood pressure controlled, home medications continued with dose adjustment as needed 6. Dyslipidemia-patient is on statin therapy, continued at home dose 7. BPH patient is on Proscar and Flomax 8. Obesity with BMI of 39.4 Active Medications Acetaminophen (Tylenol) 650 mg PO Q6H PRN PRN PRN Reason: PAIN Aspirin (Ecotrin) 81 mg PO DAILY@0800 [facility] Atorvastatin Calcium (Lipitor) 40 mg PO QHS [facility] Carvedilol (Coreg) 3.125 mg PO BID [facility] Clopidogrel Bisulfate (Plavix) 75 mg PO DAILY [facility] Finasteride (Proscar) 5 mg PO DAILY [facility] Azithromycin 500 mg/ Dextrose 255 mls @ 250 mls/hr IV Q24H [facility] Ceftriaxone Sodium 2 gm/ (Sodium Chloride) 50 mls @ 100 mls/hr IV Q24H [facility] Sodium Chloride () 250 mls @ 15 mls/hr IV .[id number] PRN PRN Reason: SALINE FLUSH Magnesium Hydroxide (Milk Of Magnesia) 30 ml PO DAILY PRN PRN Reason: Constipation Morphine Sulfate () 4 mg IV Q3H PRN PRN PRN Reason: SEVERE PAIN (6-10/10) Non-Formulary Medication (Lisinopril [Zestril]) 30 mg PO DAILY [facility] Oxycodone HCl (Oxyir) 5 mg PO Q4H PRN PRN PRN Reason: PAIN Rivaroxaban (Xarelto) 15 mg PO BIDCM [facility] Last Admin: 08/25/18 08:20 Dose: 15 mg Sodium Chloride () 5 - 15 ml IV UD PRN PRN Reason: SALINE FLUSH Last Admin: 08/25/18 02:25 Dose: 10 ml Tamsulosin HCl (Flomax) 0.8 mg PO QHS [facility] Clinical Impression(s) from Imaging Studies Chest X-Ray 08/24/18 21:49 IMPRESSION: Bibasilar interstitial infiltrates Electronically Signed: Herber Abraham MD at 22:26 EDT , Service support , Chest CTA 08/24/18 22:46 IMPRESSION: saddle pulmonary embolism and extensive bilateral emboli. No sue evidence of right ventricular strain. Coronary artery disease. Electronically Signed: Herber Abraham MD at 23:33 EDT , Service support , ADDENDUM: 08/24/18 2350 IMPRESSION: saddle pulmonary embolism and extensive bilateral emboli. No sue evidence of right ventricular strain. Coronary artery disease. N.B. : The above information has been verbally conveyed by Herber Abraham MD to Mingo Son MD, on 08/24/2018 23:43:12 (ET). Electronically Signed: Herber Abraham MD at 23:33 EDT , Service support , Code Visit Inpatient E&M: [id number] Subs Hosp L3
--- NOTE | 2018-08-25 09:35 | ECHOD_ITS ---
Reason For Study: Emboli Procedure This was a 2D Doppler, Color Flow transthoracic echocardiogram. The study was technically difficult. Did not use Definity due to increased PAP. Exam performed portable in patient room. Left Ventricle Based upon the 2D echocardiographic images obtained there appears to be grossly normal left ventricular size, wall motion, and systolic function. The estimated ejection fraction is 60 %. Diastolic function is indeterminate. Right Ventricle Normal RV size. Normal systolic function. Atria Normal left atrium. Normal right atrium. No doppler evidence for ASD. Mitral Valve There is no mitral annular calcification. Normal mitral valve. Trivial mitral valve insufficiency. Tricuspid Valve Normal tricuspid valve. Mild tricuspid valve insufficiency. Right ventricular systolic pressure estimated to be 59 mmHg. Aortic Valve Trisinus/trileaflet aortic valve. Mild diffuse aortic valve thickening. Mild focal aortic valve calcification. Pulmonic Valve The pulmonic valve is not well visualized. Trivial pulmonic valve insufficiency. Great Vessels Normal sized aortic root. Pericardium/Pleural No pericardial effusion. MMode/2D Measurements & Calculations LVIDd: 4.9 cm IVSd: 1.1 cm Ao root diam: 3.8 cm LVIDs: 3.6 cm LVPWd: 1.3 cm RVDd: 5.3 cm FS: 27.0 % LAV(MOD-bp): 48.4 ml LA A4 area: 15.2 cm2 LA dimension(2D): 4.5 cm LAV(MOD-bp) Indexed: 18.0 ml/m2 LAV(MOD-sp2): 43.7 ml LAV(MOD-sp4): 44.0 ml RA A4 area: 11.7 cm2 Doppler Measurements & Calculations MV E max seth: 41.1 cm/sec Lat Peak E' Seth: 5.8 cm/sec Med Peak E' Seth: 5.7 cm/sec MV A max seth: 91.3 cm/sec E/E' lat: 7.1 E/E' med: 7.2 MV E/A: 0.45 Ao V2 max: 96.0 cm/sec LV V1 max: 79.6 cm/sec PA V2 max: 89.9 cm/sec Ao max P.7 mmHg LV V1 max P.5 mmHg Ao V2 mean: 68.4 cm/sec Ao mean P.0 mmHg Ao V2 VTI: 18.1 cm TR max seth: 358.5 cm/sec TR max P.4 mmHg Interpretation Summary The study was technically difficult. Based upon the 2D echocardiographic images obtained there appears to be grossly normal left ventricular size, wall motion, and systolic function. The estimated ejection fraction is 60 %. Trivial mitral valve insufficiency. Mild tricuspid valve insufficiency. Mild diffuse aortic valve thickening. Mild focal aortic valve calcification. Trivial pulmonic valve insufficiency. Right ventricular systolic pressure estimated to be 59 mmHg c/w pulmonary hypertension. Diastolic function is indeterminate. Ordering Physician: Saurav Caraballo Referring Physician: Orlando Flores Performed By: Colleen Liz RDCS, RVT
[2018-08-25] MEDS: Clopidogrel Bisulfate 75 MG Tablet PO (09:56)
[2018-08-25] MEDS: oxyCODONE 5 MG Tablet PO ×4 (09:56→21:59)
[2018-08-25] MEDS: Lisinopril 10 MG Tablet 30 MG PO (09:56)
[2018-08-25] MEDS: Finasteride 5 MG Tablet PO (09:57)
[2018-08-25] MEDS: Carvedilol 3.125 MG TABLET PO ×2 (09:57→21:38)
[2018-08-25] MEDS: Morphine 4 MG/ML Syringe IV (14:16)
--- NOTE | 2018-08-25 14:43 | CM.UR ---
RN CM Assessment Met face to face with patient for initial transition planning/care coordination assessment. Introduced myself and my role. Verb understanding and agreement for assessment. Presentation: Sharp chest pain and dry cough. dx: Saddle PE and bilateral pneumonia. PCP: Dr. Flores. Specialists: Dr. Hickey, adzing and boring machine feeder --can't remember his name. Preferred Pharmacy: [facility] Insurance: [employer] [facility] Prescription Benefit: yes LNOK: [facility] Home: 2 story. Putting a bed on first floor for him. There is a 1/2 bath on first floor. Barriers: Vision ADLs: Needs assistance with cooking, ell tutor. Transportation: DME: Walker, grab bars, raised toilet seat, shower chair, handheld shower, nebulizer. SNF/HHC: No hx of HHC but has been in [place]. Passport/waiver dev technical mgr: None Advance Directives: both on file. [facility] () is HPOA. DC PLAN: Home. they are not anticipating any needs. Remains on O2--no o2 for him in home. Marlen Matthew RN, CCM.
[2018-08-25] MEDS: Tamsulosin HCl 0.4 MG Capsule 0.8 MG PO (21:38)
[2018-08-25] MEDS: Atorvastatin Calcium 40 MG Tablet PO (21:39)
[2018-08-25] MEDS: Magnesium Hydroxide 30 ML UDC PO (22:00)
[2018-08-26] VITALS (13 sets, daily range): BP systolic 93–116; BP diastolic 42–62; PULSE 70–85; RESP 17–20; TEMP 36.4–37; O2SAT 92–95
[2018-08-26 08:01] LABS: Absolute Lymphocyte Count 1.81 X10^3/ul (0.83-4.51); Absolute Neutrophil Count 7.6 X10^3/uL (2.0-7.7); Basophil# 0.06 X10^3/uL; Basophil% 0.5 % (0-1); Eosinophil# 0.23 X10^3/uL; Hematocrit 38.4 % (40-54); Hemoglobin 12.7 g/dl (13.0-16.5); Lymphocyte # 1.81 X10^3/ul (4.0); Lymphocyte % 15.6 % (19-41); Mean Corp Hgb Conc 33.1 g/gl (32-36); Mean Corpuscular Hgb 29.4 pg (27.0-32.0); Mean Corpuscular Volume 88.9 fL (80-94); Mean Platelet Vol. 10.3 fl (6.2-12.0); Monocyte# 1.76 X10^3/uL; Monocyte% 15.1 % (0-10); Neutrophil # 7.64 X10^3/uL (2.7-7.7); Neutrophil % 65.7 % (47-70); Platelet Count 164 K/mm3 (150-450); RBC Distribution Width CV 12.9 % (11.6-14.6); RBC Distribution Width SD 41.8 fl (35.1-43.9); Red Blood Count 4.32 M/mm3 (4.6-6.2); White Blood Count 11.6 K/mm3 (4.4-11.0)
[2018-08-26 08:07] LABS: Anion Gap 6 (5-15); BUN 33 mg/dL (7-18); BUN/Creat Ratio 20.2 RATIO (10-20); Calcium,Total 8.1 mg/dL (8.5-10.1); Chloride 106 mmol/L (98-107); Creatinine, Serum 1.63 mg/dL (0.70-1.30); EST Glomerular Filtration Rate 43 mL/min (>60); Est Glom Filt Rate - Afr Amer 52 mL/min (>60); Estimated Creatinine Clearance 41.04 ml/min; Glucose 102 mg/dL (74-106); Magnesium 2.4 mg/dL (1.6-2.6); Potassium 4.2 mmol/L (3.5-5.1); Sodium Level 138 mmol/L (136-145)
[2018-08-26 08:08] LABS: Differential Indicated SCAN CRITERIA MET; POSITIVE COUNT NO; POSITIVE DIFFERENTIAL YES; POSITIVE MORPHOLOGY NO
[2018-08-26] MEDS: Aspirin E.C. 81 MG Tablet PO (08:46)
[2018-08-26] MEDS: Finasteride 5 MG Tablet PO (08:46)
[2018-08-26] MEDS: Rivaroxaban 15 MG Tablet PO ×2 (08:46→16:32)
[2018-08-26] MEDS: Clopidogrel Bisulfate 75 MG Tablet PO (08:46)
[2018-08-26 08:55] LABS: Differential Comment SCANNED
--- NOTE | 2018-08-26 09:32 | PN_ITS ---
Patient Problems: Active and Suspected Problems (Last Reviewed 08/22/18 @ 14:18 by Carolyn Norwood) Saddle pulmonary embolus (Acute) Pneumonia (Acute) Subjective: Patient seen still requiring high flow oxygen. Patient complains of being constipated. Objective: GENERAL: cooperative HEENT: Atraumatic; moist oral mucosa EYES; Anicteric, Normal Conjunctiva NECK; supple, normal thyroid, no distended JVD. RESPIRATORY: Diminished to auscultation bilaterally, CARDIOVASCULAR: Regular S1 S2, GI: soft, non-tender, normoactive bowel sounds, : No Renal angle tenderness; EXTREMITIES: No edema, no clubbing, no cyanosis. MUSCULOSKELETAL: No Joint Tenderness; NEURO: Awake; no lateralizing signs. SKIN: No Rash PSYCH; Normal affect Vitals/I&O's: Vital Signs Temp Pulse Resp BP Pulse Ox 97.5 F L 82 18 99/42 L 94 08/26/18 08:23 08/26/18 08:23 08/26/18 08:23 08/26/18 08:23 08/26/18 08:23 Oxygen Flow Rate (L/min) 5 Oxygen Delivery Method Nasal Cannula Weight: 143.5 kg Body Mass Index (BMI) 39.5 Intake and Output for Last 24 Hours 08/24/18 08/25/18 08/26/18 23:59 23:59 23:59 Intake Total 1393 / 1393 420 / 420 Output Total 725 / 725 Balance 668 / 668 420 / 420 Laboratory Results 08/26/18 06:15: WBC 11.6 H, RBC 4.32 L, Hgb 12.7 L, Hct 38.4 L, MCV 88.9, MCH 29.4, MCHC 33.1, RDW 12.9, RDW Differential 41.8, Plt Count 164, MPV 10.3, Immature Gran % (Auto) 1.100 H, Neut % (Auto) 65.7, Lymph % (Auto) 15.6 L, [place] % (Auto) 15.1 H, Eos % (Auto) 2.0, Baso % (Auto) 0.5, Absolute Neuts (auto) 7.6, Absolute Lymphs (auto) 1.81, Total Counted Not Reportable, Differential Comment SCANNED 08/26/18 06:15: Sodium 138, Potassium 4.2, Chloride 106, Carbon Dioxide 26.0, Anion Gap 6, BUN 33 H, Creatinine 1.63 H, Estim Creat Clear Calc 41.04, Est GFR (MDRD) Af Amer 52 L, Est GFR (MDRD) Non-Af 43 L, BUN/Creatinine Ratio 20.2 H, Glucose 102, Calcium 8.1 L, Magnesium 2.4 Current Medications Acetaminophen (Tylenol) 650 mg PO Q6H PRN PRN PRN Reason: PAIN Aspirin (Ecotrin) 81 mg PO DAILY@0800 [facility] Last Admin: 08/26/18 08:46 Dose: 81 mg Atorvastatin Calcium (Lipitor) 40 mg PO QHS [facility] Last Admin: 08/25/18 21:39 Dose: 40 mg Carvedilol (Coreg) 3.125 mg PO BID [facility] Last Admin: 08/25/18 21:38 Dose: 3.125 mg Clopidogrel Bisulfate (Plavix) 75 mg PO DAILY [facility] Last Admin: 08/26/18 08:46 Dose: 75 mg Finasteride (Proscar) 5 mg PO DAILY [facility] Last Admin: 08/26/18 08:46 Dose: 5 mg Azithromycin 500 mg/ Dextrose 255 mls @ 250 mls/hr IV Q24H [facility] Last Admin: 08/25/18 21:37 Dose: 250 mls/hr Ceftriaxone Sodium 2 gm/ (Sodium Chloride) 50 mls @ 100 mls/hr IV Q24H [facility] Last Admin: 08/25/18 21:37 Dose: 100 mls/hr Sodium Chloride () 250 mls @ 15 mls/hr IV .[id number] PRN PRN Reason: SALINE FLUSH Lisinopril (Zestril) 30 mg PO DAILY [facility] Last Admin: 08/25/18 09:56 Dose: 30 mg Magnesium Hydroxide (Milk Of Magnesia) 30 ml PO DAILY PRN PRN Reason: Constipation Last Admin: 08/25/18 22:00 Dose: 30 ml Morphine Sulfate () 4 mg IV Q3H PRN PRN PRN Reason: SEVERE PAIN (6-10/10) Last Admin: 08/25/18 14:16 Dose: 4 mg Oxycodone HCl (Oxyir) 5 mg PO Q4H PRN PRN PRN Reason: PAIN Last Admin: 08/25/18 21:59 Dose: 5 mg [facility] Last Admin: 08/26/18 08:46 Dose: 15 mg Sodium Chloride () 5 - 15 ml IV UD PRN PRN Reason: SALINE FLUSH Last Admin: 08/25/18 22:00 Dose: 10 ml Tamsulosin HCl (Flomax) 0.8 mg PO QHS [facility] Last Admin: 08/25/18 21:38 Dose: 0.8 mg Medical Necessity - Tobacco Use Smoking Status: Former smoker Tobacco Use: Cigarettes Assessment/Plan All Active Problems (Last Reviewed 08/22/18 @ 14:18 by Carolyn Norwood) Saddle pulmonary embolus (Acute) Pneumonia (Acute) Abnormal stress test (Resolved) Patient is an 82-year-old gentleman with previous history of DVT involving the lower extremity (who stopped his Xarelto on his own volition 2 weeks prior to his admission) who presented with significant chest discomfort. Imaging studies obtained in the emergency department demonstrated saddle pulmonary embolism and extensive bilateral emboli. No sue evidence of right ventricular strain. Patient admitted to a monitored bed for further management 1. 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 As stated above patient admitted to monitored bed systemic anticoagulation with heparin initiated with plans to switch to Xarelto. Echo ordered for RV function assessment. 2D echo demonstrated EF of 60% his right ventricular systolic pressure was estimated to be 59 consistent with pulmonary hypertension patient still requires high flow oxygen to maintain his oxygen saturation greater than 90 2. Bilateral pulmonary infiltrate my suspicion is more for pulmonary infarction given how extensive patient's VTE was patient however 2 days low-grade fever (his VTE could explain for that however he had elevated WBC count and was subsequently started on Rocephin and Zithromax 3. Previous history of DVT 4. CAD status post stent in May 2017 patient is on dual antiplatelet therapy 5. Hypertension-blood pressure controlled, home medications continued with dose adjustment as needed 6. Dyslipidemia-patient is on statin therapy, continued at home dose 7. BPH patient is on Proscar and Flomax 8. Obesity with BMI of 39.4 9. Obstipation patient please do not stool softeners Clinical Impression(s) from Imaging Studies Chest X-Ray 08/24/18 21:49 IMPRESSION: Bibasilar interstitial infiltrates Electronically Signed: Herber Abraham MD at 22:26 EDT , Service support , Chest CTA 08/24/18 22:46 IMPRESSION: saddle pulmonary embolism and extensive bilateral emboli. No sue evidence of right ventricular strain. Coronary artery disease. Electronically Signed: Herber Abraham MD at 23:33 EDT , Service support , ADDENDUM: 08/24/18 2350 IMPRESSION: saddle pulmonary embolism and extensive bilateral emboli. No sue evidence of right ventricular strain. Coronary artery disease. N.B. : The above information has been verbally conveyed by Herber Abraham MD to Mingo Son MD, on 08/24/2018 23:43:12 (ET). Electronically Signed: Herber Abraham MD at 23:33 EDT , Service support , Code Visit Inpatient E&M: 72413 Subs Hosp L3
[2018-08-26] MEDS: Carvedilol 3.125 MG TABLET PO ×2 (12:47→22:04)
[2018-08-26] MEDS: Senna/Docusate Sodium 1 Tablet 2 TABLET PO ×2 (12:47→22:08)
[2018-08-26] MEDS: Atorvastatin Calcium 40 MG Tablet PO (22:04)
[2018-08-26] MEDS: Tamsulosin HCl 0.4 MG Capsule 0.8 MG PO (22:04)
[2018-08-27] VITALS (8 sets, daily range): BP systolic 114–130; BP diastolic 59–69; PULSE 70–82; RESP 18–20; TEMP 36.4–36.7; O2SAT 89–95
[2018-08-27 07:00] LABS: Absolute Lymphocyte Count 1.66 X10^3/ul (0.83-4.51); Absolute Neutrophil Count 5.9 X10^3/uL (2.0-7.7); Basophil# 0.05 X10^3/uL; Basophil% 0.5 % (0-1); Eosinophil# 0.43 X10^3/uL; Eosinophils% 4.6 % (0-5); Hemoglobin 12.8 g/dl (13.0-16.5); Lymphocyte # 1.66 X10^3/ul (4.0); Lymphocyte % 17.6 % (19-41); Mean Corp Hgb Conc 33.7 g/gl (32-36); Mean Corpuscular Hgb 29.4 pg (27.0-32.0); Mean Corpuscular Volume 87.4 fL (80-94); Mean Platelet Vol. 10.5 fl (6.2-12.0); Monocyte# 1.22 X10^3/uL; Neutrophil # 5.93 X10^3/uL (2.7-7.7); Platelet Count 183 K/mm3 (150-450); RBC Distribution Width CV 12.6 % (11.6-14.6); RBC Distribution Width SD 39.5 fl (35.1-43.9); Red Blood Count 4.35 M/mm3 (4.6-6.2); White Blood Count 9.4 K/mm3 (4.4-11.0)
[2018-08-27 07:09] LABS: Anion Gap 2 (5-15); BUN 24 mg/dL (7-18); BUN/Creat Ratio 24.1 RATIO (10-20); Calcium,Total 8.2 mg/dL (8.5-10.1); Chloride 108 mmol/L (98-107); Creatinine, Serum 0.99 mg/dL (0.70-1.30); EST Glomerular Filtration Rate 76 mL/min (>60); Est Glom Filt Rate - Afr Amer 92 mL/min (>60); Estimated Creatinine Clearance 67.57 ml/min; Glucose 102 mg/dL (74-106); Potassium 4.7 mmol/L (3.5-5.1); Sodium Level 139 mmol/L (136-145)
[2018-08-27 07:18] LABS: POSITIVE COUNT NO; POSITIVE DIFFERENTIAL NO; POSITIVE MORPHOLOGY NO
[2018-08-27] MEDS: Carvedilol 3.125 MG TABLET PO (08:37)
[2018-08-27] MEDS: Lisinopril 10 MG Tablet 30 MG PO (08:37)
[2018-08-27] MEDS: Aspirin E.C. 81 MG Tablet PO (08:37)
[2018-08-27] MEDS: Clopidogrel Bisulfate 75 MG Tablet PO (08:37)
[2018-08-27] MEDS: Rivaroxaban 15 MG Tablet PO (08:37)
[2018-08-27] MEDS: Senna/Docusate Sodium 1 Tablet 2 TABLET PO (08:38)
[2018-08-27] MEDS: Finasteride 5 MG Tablet PO (08:38)
--- NOTE | 2018-08-27 12:16 | DCINST_ITS ---
- Discharge Diagnoses Current Active Problems: Current Active and Chronic Problems (Last Reviewed 08/22/18 @ 14:18 by Carolyn Norwood) Saddle pulmonary embolus (Acute) Pneumonia (Acute) You will use the following diet at home:: Cardiac Discharge Activity: Return to Normal Activity Call your doctor if you observe: Shortness of breath, Dizziness, Fainting spells, Chest pain Allergies/Adverse Reactions: Allergies Penicillins [PCN] Allergy (Verified 08/24/18 21:37) Rash Medications to take at Discharge Lisinopril [Zestril] 30 mg PO DAILY 06/16/15 Acetaminophen [Tylenol Tablet] 650 mg PO Q6H PRN PRN #0 tab 05/05/17 Aspirin E.C. [Ecotrin] 81 mg PO DAILY@0800 #30 tab 05/05/17 Atorvastatin Calcium [Lipitor] 40 mg PO QHS #30 tab 05/05/17 Carvedilol [Coreg (Beta Jose)] 3.125 mg PO BID #60 tab 05/05/17 Clopidogrel Bisulfate [Plavix] 75 mg PO DAILY #30 tab 05/05/17 Finasteride [Proscar] 5 mg PO DAILY #30 tab 05/05/17 furosemide 20 mg tablet 20 mg PO QDAY 06/23/17 tamsulosin 0.4 mg capsule 0.8 mg PO QHS cap 10/27/17 saw palmetto fruit 450 mg capsule 450 mg PO BID 02/15/18 Cefdinir [Omnicef [equiv]] 300 mg PO Q12H #8 capsule 08/27/18 Rivaroxaban [Xarelto] 15 mg PO BIDCM #36 tablet 08/27/18 Rivaroxaban [Xarelto] 20 mg PO DAILY #0 08/27/18 The following prescriptions were given: Cefdinir [Omnicef [equiv]] 300 mg PO Q12H #8 capsule Rivaroxaban [Xarelto] 15 mg PO BIDCM #36 tablet Primary Care Physician: Orlando Flores MD [Primary Care Provider] - Please follow up with your Primary Care Physician in: 1 Week Test Results: Test results from this visit will be discussed in further detail at your follow- up appointment, if applicable. Please Follow Up With: Jj Hickey MD When: 1-2 Weeks Proposed Discharge Date: 08/27/18
--- NOTE | 2018-08-27 12:18 | PCM.DC.SUM ---
<Ava Hall - Last Filed: 08/27/18 12:18> Discharge Date and Diagnosis Date of Admission: 08/24/18 Date of Discharge: 08/27/18 - Primary Discharge Diagnosis Active and Suspected Problems (Last Reviewed 08/22/18 @ 14:18 by Carolyn Norwood) 1. Acute hypoxic respiratory insufficiency secondary to acute saddle pulmonary embolism and extensive bilateral emboli 2. Possible bilateral gram-positive pneumonia 3. History of DVT 4. CAD status post PCI May 2017 5. Hypertension 6. Hyperlipidemia 7. BPH 8. Obesity - Secondary Discharge Diagnosis Chronic Problems (Last Reviewed 08/22/18 @ 14:18 by Carolyn Norwood) Right leg DVT (Chronic) Presence of stent in coronary artery (Chronic 05/04/17) PTCA/ESTRELLA of proximal LAD 05/04/17 Atherosclerosis of coronary artery of tribal heart without angina pectoris (Chronic) PTCA/ESTRELLA of proximal LAD 05/04/17 Edema leg (Chronic) HTN (hypertension) (Chronic) Hospital Course and Treatment Imaging Results: Diagnostic Data Chest X-Ray 08/24/18 21:49 IMPRESSION: Bibasilar interstitial infiltrates Electronically Signed: Herber Abraham MD at 22:26 EDT , Service support , Chest CTA 08/24/18 22:46 IMPRESSION: saddle pulmonary embolism and extensive bilateral emboli. No sue evidence of right ventricular strain. Coronary artery disease. Electronically Signed: Herber Abraham MD at 23:33 EDT , Service support , ADDENDUM: 08/24/18 2350 IMPRESSION: saddle pulmonary embolism and extensive bilateral emboli. No sue evidence of right ventricular strain. Coronary artery disease. N.B. : The above information has been verbally conveyed by Herber Abraham MD to Mingo Son MD, on 08/24/2018 23:43:12 (ET). Electronically Signed: Herber Abraham MD at 23:33 EDT , Service support , Operations: None Procedures: 2-D Echocardiogram Summary of Care Provided: The patient is a 82 year old M admitted 08/24/2018 due to shortness of breath and chest pain. 1. Acute hypoxic respiratory insufficiency secondary to acute saddle pulmonary embolism and extensive bilateral emboli-chest CTA on admission shows saddle pulmonary embolism and extensive bilateral emboli. No sue evidence of right ventricular strain. Echocardiogram showed an EF of 60%, RVSP estimated to be 59 mmHg. Patient recently discontinued his Xarelto due to concern for being on aspirin, Plavix and Xarelto. Resume Xarelto at 15 mg twice daily for 21 days followed by Xarelto 20 mg daily thereafter. Did discuss with cardiology if patient should be taken off aspirin or Plavix given stents were in May 2017. Cardiology recommends continuing current regimen unless patient becomes a fall risk or if other contraindication occurs. Follow-up with primary care physician in 1 week. Follow-up with Dr. Hickey in 1 to 2 weeks. 2. Possible bilateral gram-positive pneumonia-patient with low-grade fever and leukocytosis. Initiated on Rocephin and Zithromax during admission. Fever and leukocytosis resolved. Patient denies cough. Blood cultures negative. Continue antibiotics empirically for 7 days total. Discharge on Omnicef 300 mg twice daily for 4 days. 3. History of DVT-patient will require lifelong anticoagulation as noted above. 4. CAD status post PCI May 2017-spoke with Dr. Hickey who recommends continuing dual antiplatelet therapy with aspirin and Plavix. Continue aspirin, statin, Plavix, carvedilol. 5. Hypertension-stable, continue home lisinopril, carvedilol regimen. 6. Hyperlipidemia-continue statin. 7. BPH-continue Proscar, Flomax regimen. 8. Obesity-encouraged diet lifestyle modifications. Patient seen and examined prior to discharge. Physical assessment as noted above. Patient is stable for discharge with follow up recommendations as noted above. This patient was seen by ELYSSA Marquez under the supervision of Dr. Huitron. - Physical Exam Vital Signs Temp Pulse Resp BP Pulse Ox 97.6 F L 82 18 130/63 H 94 08/27/18 08:30 08/27/18 08:30 08/27/18 08:30 08/27/18 08:30 08/27/18 08:30 Oxygen Flow Rate (L/min) 2 Oxygen Delivery Method Nasal Cannula Weight: 316 lb 5.813 oz Body Mass Index (BMI) 39.5 Intake and Output for Last 24 Hours 08/25/18 08/26/18 08/27/18 23:59 23:59 23:59 Intake Total 1393 / 1393 780 / 780 310 / 310 Output Total 725 / 725 300 / 300 1750 / 1750 Balance 668 / 668 480 / 480 -1440 / -1440 Microbiology Past 72 Hours 08/24/18 23:01 Blood Culture - Preliminary Blood Culture (Wb) - Left Hand No growth in 48 hours. 08/24/18 22:50 Blood Culture - Preliminary Blood Culture (Wb) - Arm Left No growth in 48 hours. Laboratory Tests Past 24 Hrs 08/27/18 08/27/18 06:25 06:25 WBC 9.4 RBC 4.35 L Hgb 12.8 L Hct 38.0 L MCV 87.4 MCH 29.4 MCHC 33.7 RDW 12.6 RDW Differential 39.5 Plt Count 183 MPV 10.5 Immature Gran % (Auto) 1.300 H Neut % (Auto) 63.0 Lymph % (Auto) 17.6 L [place] % (Auto) 13.0 H Eos % (Auto) 4.6 Baso % (Auto) 0.5 Absolute Neuts (auto) 5.9 Absolute Lymphs (auto) 1.66 Total Counted Not Reportable Sodium 139 Potassium 4.7 Chloride 108 H Carbon Dioxide 29.0 Anion Gap 2 L BUN 24 H Creatinine 0.99 Estim Creat Clear Calc 67.57 Est GFR (MDRD) Af Amer 92 Est GFR (MDRD) Non-Af 76 BUN/Creatinine Ratio 24.1 H Glucose 102 Calcium 8.2 L Discharge Diet: Low fat/ Low Cholesterol Discharge Activity: Return to Normal Activity Call your doctor if you observe: Shortness of breath, Dizziness, Fainting spells, Chest pain Home Medications: Medications to take at Discharge Lisinopril [Zestril] 30 mg PO DAILY 06/16/15 Acetaminophen [Tylenol Tablet] 650 mg PO Q6H PRN PRN #0 tab 05/05/17 Aspirin E.C. [Ecotrin] 81 mg PO DAILY@0800 #30 tab 05/05/17 Atorvastatin Calcium [Lipitor] 40 mg PO QHS #30 tab 05/05/17 Carvedilol [Coreg (Beta Jose)] 3.125 mg PO BID #60 tab 05/05/17 Clopidogrel Bisulfate [Plavix] 75 mg PO DAILY #30 tab 05/05/17 Finasteride [Proscar] 5 mg PO DAILY #30 tab 05/05/17 furosemide 20 mg tablet 20 mg PO QDAY 06/23/17 tamsulosin 0.4 mg capsule 0.8 mg PO QHS cap 10/27/17 saw palmetto fruit 450 mg capsule 450 mg PO BID 02/15/18 Cefdinir [Omnicef [equiv]] 300 mg PO Q12H #8 capsule 08/27/18 Rivaroxaban [Xarelto] 15 mg PO BIDCM #36 tablet 08/27/18 Rivaroxaban [Xarelto] 20 mg PO DAILY #0 08/27/18 Following Prescrptions Were Given to Patient: Cefdinir [Omnicef [equiv]] 300 mg PO Q12H #8 capsule Rivaroxaban [Xarelto] 15 mg PO BIDCM #36 tablet Primary Care Physician: Orlando Flores MD [Primary Care Provider] - Please follow up with your Primary Care Physician in: 1 Week Please Follow Up With: Jj Hickey MD When: 1-2 Weeks Disposition: Home Minutes spent on discharge:: 35 Patient Condition:: Stable Medical Necessity - Tobacco Use Smoking Status: Former smoker Tobacco Use: Cigarettes Meaningful Use Info Meaningful Use Diagnoses (Choose all that apply): VTE - VTE Anticoag overlap given w/in hospital stay or rx'd at mi?: Yes Pt receive overlap for 5 days?: Yes <Sawyer Huitron - Last Filed: 08/27/18 15:00> Discharge Date and Diagnosis - Secondary Discharge Diagnosis Chronic Problems (Last Reviewed 08/22/18 @ 14:18 by Carolyn Norwood) Right leg DVT (Chronic) Presence of stent in coronary artery (Chronic 05/04/17) PTCA/ESTRELLA of proximal LAD 05/04/17 Atherosclerosis of coronary artery of tribal heart without angina pectoris (Chronic) PTCA/ESTRELLA of proximal LAD 05/04/17 Edema leg (Chronic) HTN (hypertension) (Chronic) Hospital Course and Treatment Operations: None Procedures: 2-D Echocardiogram Summary of Care Provided: Patient seen and examined independently. Data reviewed. I agree with the above note by the nurse practitioner. The patient is a 82 year old M who presents with shortness of breath or chest pain. Patient was found to have acute saddle PE and extensive bilateral emboli. Patient had bruising been taken off of Xarelto. Patient was returned back on it and has done well. Patient will continue with anticoagulation lifelong. Patient will need follow-up cardiology to see about de-escalation of his other antiplatelet medications. [] - Physical Exam General: Alert, Cooperative, No apparent distress HEENT: Atraumatic, Normocephalic Oral: Moist Mucosa, No Gingival or Mucosal Lesions/ Ulcerations Neck: No Nodes, Thyroid Normal Size and Texture Lungs: Clear to auscultation, Normal air movement, No rhonchi, No wheeze Cardiovascular: Regular rate, Regular Rhythm, Normal S1, Normal S2, No murmurs Abdomen: Bowel Sounds Present, Soft, Non Tender, Non-Distended, No Hepato-splenomegaly Extremities: No edema, No Calf Tenderness Skin: No rashes, Ulcer/ Wound Musculoskeletal: No Tenderness to Palpation of Joints or Extremities, No Muscle Wasting Psych/Mental Status: Normal Affect, Appropriate Vital Signs Temp Pulse Resp BP Pulse Ox 36.4 C L 70 18 130/63 H 93 08/27/18 08:30 08/27/18 11:30 08/27/18 08:30 08/27/18 08:30 08/27/18 12:56 Oxygen Flow Rate (L/min) 2 Oxygen Delivery Method Nasal Cannula Weight: 143.5 kg Body Mass Index (BMI) 39.5 Intake and Output for Last 24 Hours 08/25/18 08/26/18 08/27/18 23:59 23:59 23:59 Intake Total 1393 / 1393 780 / 780 610 / 610 Output Total 725 / 725 300 / 300 1750 / 1750 Balance 668 / 668 480 / 480 -1140 / -1140 Microbiology Past 72 Hours 08/24/18 23:01 Blood Culture - Preliminary Blood Culture (Wb) - Left Hand No growth in 48 hours. 08/24/18 22:50 Blood Culture - Preliminary Blood Culture (Wb) - Arm Left No growth in 48 hours. Laboratory Tests Past 24 Hrs 08/24/18 08/27/18 08/27/18 22:05 06:25 06:25 WBC 9.4 RBC 4.35 L Hgb 12.8 L Hct 38.0 L MCV 87.4 MCH 29.4 MCHC 33.7 RDW 12.6 RDW Differential 39.5 Plt Count 183 MPV 10.5 Immature Gran % (Auto) 1.300 H Neut % (Auto) 63.0 Lymph % (Auto) 17.6 L [place] % (Auto) 13.0 H Eos % (Auto) 4.6 Baso % (Auto) 0.5 Absolute Neuts (auto) 5.9 Absolute Lymphs (auto) 1.66 Total Counted Not Reportable Diff Path Review Reviewed Sodium 139 Potassium 4.7 Chloride 108 H Carbon Dioxide 29.0 Anion Gap 2 L BUN 24 H Creatinine 0.99 Estim Creat Clear Calc 67.57 Est GFR (MDRD) Af Amer 92 Est GFR (MDRD) Non-Af 76 BUN/Creatinine Ratio 24.1 H Glucose 102 Calcium 8.2 L Discharge Diet: Low fat/ Low Cholesterol Discharge Activity: Return to Normal Activity Call your doctor if you observe: Shortness of breath, Dizziness, Fainting spells, Chest pain Disposition: Home Minutes spent on discharge:: 35 Patient Condition:: Stable Medical Necessity - Tobacco Use Smoking Status: Former smoker Tobacco Use: Cigarettes Meaningful Use Info Meaningful Use Diagnoses (Choose all that apply): VTE - VTE Anticoag overlap given w/in hospital stay or rx'd at mi?: No Pt receive overlap for 5 days?: No Reason overlap not ordered, prescribed, or given for 5 days: Procedure Not Indicated Code Visit Inpatient E&M: 06301 Disch Hosp
--- NOTE | 2018-08-27 12:27 | DS.PCM_ITS ---
<Ava Hall - Last Filed: 08/27/18 12:18> Discharge Date and Diagnosis Date of Admission: 08/24/18 Date of Discharge: 08/27/18 - Primary Discharge Diagnosis Active and Suspected Problems (Last Reviewed 08/22/18 @ 14:18 by Carolyn Norwood) 1. Acute hypoxic respiratory insufficiency secondary to acute saddle pulmonary embolism and extensive bilateral emboli 2. Possible bilateral gram-positive pneumonia 3. History of DVT 4. CAD status post PCI May 2017 5. Hypertension 6. Hyperlipidemia 7. BPH 8. Obesity - Secondary Discharge Diagnosis Chronic Problems (Last Reviewed 08/22/18 @ 14:18 by Carolyn Norwood) Right leg DVT (Chronic) Presence of stent in coronary artery (Chronic 05/04/17) PTCA/ESTRELLA of proximal LAD 05/04/17 Atherosclerosis of coronary artery of [place] heart without angina pectoris (C hronic) PTCA/ESTRELLA of proximal LAD 05/04/17 Edema leg (Chronic) HTN (hypertension) (Chronic) Hospital Course and Treatment Imaging Results: Diagnostic Data Chest X-Ray 08/24/18 21:49 IMPRESSION: Bibasilar interstitial infiltrates Electronically Signed: Herber Abraham MD at 22:26 EDT , Service support , Chest CTA 08/24/18 22:46 IMPRESSION: saddle pulmonary embolism and extensive bilateral emboli. No sue evidence of right ventricular strain. Coronary artery disease. Electronically Signed: Herber Abraham MD at 23:33 EDT , Service support , ADDENDUM: 08/24/18 2350 IMPRESSION: saddle pulmonary embolism and extensive bilateral emboli. No sue evidence of right ventricular strain. Coronary artery disease. N.B. : The above information has been verbally conveyed by Herber Abraham MD to Mingo Son MD, on 08/24/2018 23:43:12 (ET). Electronically Signed: Herber Abraham MD at 23:33 EDT , Service support , Operations: None Procedures: 2-D Echocardiogram Summary of Care Provided: The patient is a 82 year old M admitted 08/24/2018 due to shortness of breath and chest pain. 1. Acute hypoxic respiratory insufficiency secondary to acute saddle pulmonary embolism and extensive bilateral emboli-chest CTA on admission shows saddle pulmonary embolism and extensive bilateral emboli. No sue evidence of right ventricular strain. Echocardiogram showed an EF of 60%, RVSP estimated to be 59 mmHg. Patient recently discontinued his Xarelto due to concern for being on aspirin, Plavix and Xarelto. Resume Xarelto at 15 mg twice daily for 21 days followed by Xarelto 20 mg daily thereafter. Did discuss with cardiology if patient should be taken off aspirin or Plavix given stents were in May 2017. Cardiology recommends continuing current regimen unless patient becomes a fall risk or if other contraindication occurs. Follow-up with primary care physician in 1 week. Follow-up with Dr. Hickey in 1 to 2 weeks. 2. Possible bilateral gram-positive pneumonia-patient with low-grade fever and leukocytosis. Initiated on Rocephin and Zithromax during admission. Fever and leukocytosis resolved. Patient denies cough. Blood cultures negative. Continue antibiotics empirically for 7 days total. Discharge on Omnicef 300 mg twice daily for 4 days. 3. History of DVT-patient will require lifelong anticoagulation as noted above. 4. CAD status post PCI May 2017-spoke with Dr. Hickey who recommends cont inuing dual antiplatelet therapy with aspirin and Plavix. Continue aspirin, statin, Plavix, carvedilol. 5. Hypertension-stable, continue home lisinopril, carvedilol regimen. 6. Hyperlipidemia-continue statin. 7. BPH-continue Proscar, Flomax regimen. 8. Obesity-encouraged diet lifestyle modifications. Patient seen and examined prior to discharge. Physical assessment as noted above. Patient is stable for discharge with follow up recommendations as noted above. This patient was seen by ELYSSA Marquez under the supervision of Dr. Huitron. - Physical Exam Vital Signs Temp Pulse Resp BP Pulse Ox 97.6 F L 82 18 130/63 H 94 08/27/18 08:30 08/27/18 08:30 08/27/18 08:30 08/27/18 08:30 08/27/18 08:30 Oxygen Flow Rate (L/min) 2 Oxygen Delivery Method Nasal Cannula Weight: 316 lb 5.813 oz Body Mass Index (BMI) 39.5 Intake and Output for Last 24 Hours 08/25/18 08/26/18 08/27/18 23:59 23:59 23:59 Intake Total 1393 / 1393 780 / 780 310 / 310 Output Total 725 / 725 300 / 300 1750 / 1750 Balance 668 / 668 480 / 480 -1440 / -1440 Microbiology Past 72 Hours 08/24/18 23:01 Blood Culture - Preliminary Blood Culture (Wb) - Left Hand No growth in 48 hours. 08/24/18 22:50 Blood Culture - Preliminary Blood Culture (Wb) - Arm Left No growth in 48 hours. Laboratory Tests Past 24 Hrs 08/27/18 08/27/18 06:25 06:25 WBC 9.4 RBC 4.35 L Hgb 12.8 L Hct 38.0 L MCV 87.4 MCH 29.4 MCHC 33.7 RDW 12.6 RDW Differential 39.5 Plt Count 183 MPV 10.5 Immature Gran % (Auto) 1.300 H Neut % (Auto) 63.0 Lymph % (Auto) 17.6 L Bates % (Auto) 13.0 H Eos % (Auto) 4.6 Baso % (Auto) 0.5 Absolute Neuts (auto) 5.9 Absolute Lymphs (auto) 1.66 Total Counted Not Reportable Sodium 139 Potassium 4.7 Chloride 108 H Carbon Dioxide 29.0 Anion Gap 2 L BUN 24 H Creatinine 0.99 Estim Creat Clear Calc 67.57 Est GFR (MDRD) Af Amer 92 Est GFR (MDRD) Non-Af 76 BUN/Creatinine Ratio 24.1 H Glucose 102 Calcium 8.2 L Discharge Diet: Low fat/ Low Cholesterol Discharge Activity: Return to Normal Activity Call your doctor if you observe: Shortness of breath, Dizziness, Fainting spells, Chest pain Home Medications: Medications to take at Discharge Lisinopril [Zestril] 30 mg PO DAILY 06/16/15 Acetaminophen [Tylenol Tablet] 650 mg PO Q6H PRN PRN #0 tab 05/05/17 Aspirin E.C. [Ecotrin] 81 mg PO DAILY@0800 #30 tab 05/05/17 Atorvastatin Calcium [Lipitor] 40 mg PO QHS #30 tab 05/05/17 Carvedilol [Coreg (Beta Jose)] 3.125 mg PO BID #60 tab 05/05/17 Clopidogrel Bisulfate [Plavix] 75 mg PO DAILY #30 tab 05/05/17 Finasteride [Proscar] 5 mg PO DAILY #30 tab 05/05/17 furosemide 20 mg tablet 20 mg PO QDAY 06/23/17 tamsulosin 0.4 mg capsule 0.8 mg PO QHS cap 10/27/17 saw palmetto fruit 450 mg capsule 450 mg PO BID 02/15/18 Cefdinir [Omnicef [equiv]] 300 mg PO Q12H #8 capsule 08/27/18 Rivaroxaban [Xarelto] 15 mg PO BIDCM #36 tablet 08/27/18 Rivaroxaban [Xarelto] 20 mg PO DAILY #0 08/27/18 Following Prescrptions Were Given to Patient: Cefdinir [Omnicef [equiv]] 300 mg PO Q12H #8 capsule Rivaroxaban [Xarelto] 15 mg PO BIDCM #36 tablet Primary Care Physician: Orlando Flores MD [Primary Care Provider] - Please follow up with your Primary Care Physician in: 1 Week Please Follow Up With: Jj Hickey MD When: 1-2 Weeks Disposition: Home Minutes spent on discharge:: 35 Patient Condition:: Stable Medical Necessity - Tobacco Use Smoking Status: Former smoker Tobacco Use: Cigarettes Meaningful Use Info Meaningful Use Diagnoses (Choose all that apply): VTE - VTE Anticoag overlap given w/in hospital stay or rx'd at md?: Yes Pt receive overlap for 5 days?: Yes <Sawyer Huitron - Last Filed: 08/27/18 15:00> Discharge Date and Diagnosis - Secondary Discharge Diagnosis Chronic Problems (Last Reviewed 08/22/18 @ 14:18 by Craolyn Norwood) Right leg DVT (Chronic) Presence of stent in coronary artery (Chronic 05/04/17) PTCA/ESTRELLA of proximal LAD 05/04/17 Atherosclerosis of coronary artery of [place] heart without angina pectoris (Chronic) PTCA/ESTRELLA of proximal LAD 05/04/17 Edema leg (Chronic) HTN (hypertension) (Chronic) Hospital Course and Treatment Operations: None Procedures: 2-D Echocardiogram Summary of Care Provided: Patient seen and examined independently. Data reviewed. I agree with the above note by the nurse practitioner. The patient is a 82 year old M who presents with shortness of breath or chest pain. Patient was found to have acute saddle PE and extensive bilateral emboli. Patient had bruising been taken off of Xarelto. Patient was returned back on it and has done well. Patient will continue with anticoagulation lifelong. Patient will need follow-up cardiology to see about de-escalation of his other antiplatelet medications. [] - Physical Exam General: Alert, Cooperative, No apparent distress HEENT: Atraumatic, Normocephalic Oral: Moist Mucosa, No Gingival or Mucosal Lesions/ Ulcerations Neck: No Nodes, Thyroid Normal Size and Texture Lungs: Clear to auscultation, Normal air movement, No rhonchi, No wheeze Cardiovascular: Regular rate, Regular Rhythm, Normal S1, Normal S2, No murmurs Abdomen: Bowel Sounds Present, Soft, Non Tender, Non-Distended, No Hepato- splenomegaly Extremities: No edema, No Calf Tenderness Skin: No rashes, Ulcer/ Wound Musculoskeletal: No Tenderness to Palpation of Joints or Extremities, No Muscle Wasting Psych/Mental Status: Normal Affect, Appropriate Vital Signs Temp Pulse Resp BP Pulse Ox 36.4 C L 70 18 130/63 H 93 08/27/18 08:30 08/27/18 11:30 08/27/18 08:30 08/27/18 08:30 08/27/18 12:56 Oxygen Flow Rate (L/min) 2 Oxygen Delivery Method Nasal Cannula Weight: 143.5 kg Body Mass Index (BMI) 39.5 Intake and Output for Last 24 Hours 08/25/18 08/26/18 08/27/18 23:59 23:59 23:59 Intake Total 1393 / 1393 780 / 780 610 / 610 Output Total 725 / 725 300 / 300 1750 / 1750 Balance 668 / 668 480 / 480 -1140 / -1140 Microbiology Past 72 Hours 08/24/18 23:01 Blood Culture - Preliminary Blood Culture (Wb) - Left Hand No growth in 48 hours. 08/24/18 22:50 Blood Culture - Preliminary Blood Culture (Wb) - Arm Left No growth in 48 hours. Laboratory Tests Past 24 Hrs 08/24/18 08/27/18 08/27/18 22:05 06:25 06:25 WBC 9.4 RBC 4.35 L Hgb 12.8 L Hct 38.0 L MCV 87.4 MCH 29.4 MCHC 33.7 RDW 12.6 RDW Differential 39.5 Plt Count 183 MPV 10.5 Immature Gran % (Auto) 1.300 H Neut % (Auto) 63.0 Lymph % (Auto) 17.6 L Bates % (Auto) 13.0 H Eos % (Auto) 4.6 Baso % (Auto) 0.5 Absolute Neuts (auto) 5.9 Absolute Lymphs (auto) 1.66 Total Counted Not Reportable Diff Path Review Reviewed Sodium 139 Potassium 4.7 Chloride 108 H Carbon Dioxide 29.0 Anion Gap 2 L BUN 24 H Creatinine 0.99 Estim Creat Clear Calc 67.57 Est GFR (MDRD) Af Amer 92 Est GFR (MDRD) Non-Af 76 BUN/Creatinine Ratio 24.1 H Glucose 102 Calcium 8.2 L Discharge Diet: Low fat/ Low Cholesterol Discharge Activity: Return to Normal Activity Call your doctor if you observe: Shortness of breath, Dizziness, Fainting spells, Chest pain Disposition: Home Minutes spent on discharge:: 35 Patient Condition:: Stable Medical Necessity - Tobacco Use Smoking Status: Former smoker Tobacco Use: Cigarettes Meaningful Use Info Meaningful Use Diagnoses (Choose all that apply): VTE - VTE Anticoag overlap given w/in hospital stay or rx'd at dc?: No Pt receive overlap for 5 days?: No Reason overlap not ordered, prescribed, or given for 5 days: Procedure Not Indicated Code Visit Inpatient E&M: 07707 Disch Hosp
--- NOTE | 2018-08-27 13:08 | CASEMGMT ---
Per Lamar PRESS SMITH HELPER-C, pt to be sent home on Xarelto at discharge and med e-scribed to [facility]. Pt has been on Xarelto in the past but was on different insurance at that time. Call to [employer] and per yusef, pt's co-pay is $14.99 at this time. Per Carina CAST, pt would like to speak to someone regarding advanced directives and also is interested in getting a rollator at discharge. Per Carina CAST, pt did not qualify for home oxygen at this time. Arnoldo WHITFIELD aware of AD request, voices understanding. Script for rollator to pt at this time. Anais CAST CM
--- NOTE | 2018-08-27 13:43 | CASEMGMT ---
RN said patient would like a copy of advance directives. SW met with patient, introduced self and role at [facility]. Patient's said they just wanted a copy of the documents. SW gave her a copy as well as the Social Service rac card. Jess SANDOVAL MSW
--- NOTE | 2018-08-27 13:53 | CASEMGMT ---
would like [place] [facility] [place]. [place] [facility] [place] and call to Karina at [facility] and she is notified of referral at this time. Per Eunice, they will contact pt and deliver rollator to home as they no longer keep them in stock. Pt/ updated at this time and voices understanding. Pt/ voice no further questions/concerns/needs at this time. Anais CAST CM
[2018-08-27 14:40] LABS: Pathologist Review Reviewed
--- NOTE | 2018-08-27 15:40 | NURSING ---
at 1450 as pt was getting dressed for D/C, he c/o sharp severe neck pain lasting 15 seconds, and then resolved. pt able to turn head without difficulty, PERRLA, hand grasps and pedal pushes even, and denied neck pain upon this baler. stated he was reaching his arm up to put his shirt on when the pain occurred and resolved spontaneously. Dr Huitron notified. he states that as pt is now asymptomatic, he is ok for DC home.
== END 2018-08-27 15:38 | disposition home or self-care (01) | DRG 176 ==
LOC: ED 22:40 → PCU 08-25 00:50
PROVIDERS: Internal Medicine; Admitting Provider Family Medicine; Emergency Provider Emergency Medicine; Family Provider Internal Medicine; PCP Internal Medicine
DX: I26.92 Saddle embolus of pulmonary artery without acute cor pulmonale (principal); I25.10 Atherosclerotic heart disease of native coronary artery without angina pectoris; I10 Essential (primary) hypertension; N40.0 Benign prostatic hyperplasia without lower urinary tract symptoms; E78.5 Hyperlipidemia, unspecified; E66.9 Obesity, unspecified; R06.89 Other abnormalities of breathing; R09.02 Hypoxemia; Z86.718 Personal history of other venous thrombosis and embolism; Z68.39 Body mass index [BMI] 39.0-39.9, adult; Z95.5 Presence of coronary angioplasty implant and graft; Z87.891 Personal history of nicotine dependence
CPT/HCPCS: 36415; 71045; 71275; 80048; 83605; 83735; 84484; 85025; 85610; 85730; 87040; 93005; 93306; 97110; 97163; 97166; 97530; 97535; 99285; J7030; Q9957; Q9967; A4216; J0696; J2405

== ENCOUNTER → 2018-12-07 12:59 | Outpatient (CLI) | payer MEDICARE, SELFPAY ==
[2018-09-11 11:45] VITALS: BMI 39.6
--- NOTE | 2018-12-07 13:02 | ECHOCS_ITS ---
Reason For Study: PHTN Procedure This was a 2D Doppler, Color Flow transthoracic echocardiogram. The study was technically difficult. Contrast injection was performed. Exam performed in department. Left Ventricle Mild eccentric left ventricular hypertrophy. The estimated ejection fraction is 60 %. Stage 2 diastolic dysfunction. No regional wall motion abnormalities noted. Right Ventricle Mildly dilated right ventricle. Normal systolic function. Atria Normal left atrium. Normal right atrium. Normal atrial septum. Mitral Valve The mitral valve is structurally normal. No prolapse or stenosis seen. Tricuspid Valve Normal tricuspid valve. Trivial tricuspid valve insufficiency. Right ventricular systolic pressure estimated to be 21 mmHg. Aortic Valve Trisinus/trileaflet aortic valve. Mild focal aortic valve thickening. There is no aortic stenosis. Pulmonic Valve The pulmonic valve is not well visualized. Great Vessels Normal aortic root. Mild atherosclerosis of the aortic arch. Pericardium/Pleural No pericardial effusion. Medication 22 gauge I.V. with prn adaptor inserted into right arm. Diluted definity 3ml given slow IV push to enhance endocardial definition. MMode/2D Measurements & Calculations LVIDd: 4.5 cm IVSd: 1.5 cm Ao root diam: 3.9 cm LVIDs: 3.0 cm LVPWd: 1.1 cm RVDd: 3.7 cm FS: 33.4 % LAV(MOD-sp4): 51.2 ml LVAd ap4: 29.9 cm2 SV(MOD-sp4): 48.6 ml EDV(MOD-sp4): 90.1 ml EDV(sp4-el): 92.4 ml LVAs ap4: 18.4 cm2 ESV(MOD-sp4): 41.5 ml ESV(sp4-el): 43.9 ml EF(MOD-sp4): 54.0 % EF(sp4-el): 52.5 % SV(sp4-el): 48.5 ml LA A4 area: 17.9 cm2 RA A4 area: 12.5 cm2 Time Measurements MV dec time: 0.16 sec Doppler Measurements & Calculations MV E max seth: 104.3 cm/sec Lat Peak E' Seth: 11.5 cm/sec Med Peak E' Seth: 12.6 cm/sec E/E' lat: 9.1 E/E' med: 8.2 Ao V2 max: 102.2 cm/sec LV V1 max: 78.7 cm/sec PA V2 max: 123.3 cm/sec Ao max P.2 mmHg LV V1 max P.5 mmHg Ao V2 mean: 66.4 cm/sec LV V1 mean P.5 mmHg Ao mean P.1 mmHg LV V1 mean: 56.9 cm/sec Ao V2 VTI: 17.5 cm LV V1 VTI: 15.0 cm TR max seth: 199.7 cm/sec TR max P.0 mmHg Interpretation Summary Mild eccentric left ventricular hypertrophy. The estimated ejection fraction is 60 %. Stage 2 diastolic dysfunction. Mildly dilated right ventricle. Trivial tricuspid valve insufficiency. Right ventricular systolic pressure estimated to be 21 mmHg. Compared to echo report dated 08/25/2018, LV function has remained the same and RVSP has gone from 59 to 21 mm Hg. The study was technically difficult. Contrast injection was performed. Ordering Physician: Jj Hickey Referring Physician: Jj Hickey Performed By: See Paz RCS
== END ==
PROVIDERS: Family Provider Internal Medicine; PCP Internal Medicine; Referring Provider Internal Medicine Cardiovascular Disease; Visit Provider Internal Medicine Cardiovascular Disease
DX: I27.20 Pulmonary hypertension, unspecified (principal); I36.1 Nonrheumatic tricuspid (valve) insufficiency
CPT/HCPCS: 93306; Q9957; A4216; C8929

== ENCOUNTER → 2019-01-24 10:30 | Outpatient (CLI) | payer MEDICARE, SELFPAY ==
[2019-01-24 10:04] VITALS: BMI 40.1
[2019-01-24 11:48] LABS: AST(SGOT) 24 U/L (15-37); Alanine Aminotransfer ALT/SGPT 26 U/L (16-61); Albumin, Serum 3.4 g/dL (3.2-5.0); Alkaline Phosphatase 85 U/L (45-117); Bilirubin, Direct 0.21 mg/dL (0.00-0.30); Cholesterol 90 mg/dL (200); Globulin 3.8 g/dL (2.2-4.2); High Density Lipoprotein 33 mg/dL; Protein, Total 7.2 g/dL (6.4-8.2); Triglycerides 99 mg/dL; Very Low Density Lipoprotein 20 mg/dL (5-40)
== END ==
PROVIDERS: Family Provider Internal Medicine; PCP Internal Medicine; Referring Provider Internal Medicine Cardiovascular Disease; Visit Provider Internal Medicine Cardiovascular Disease
DX: E78.00 Pure hypercholesterolemia, unspecified (principal)
CPT/HCPCS: 36415; 80061; 80076

== ENCOUNTER → 2020-03-19 16:04 | Outpatient (CLI) | payer MEDICARE, SELFPAY ==
[2020-03-19 15:25] VITALS: BMI 40.1
[2020-03-19 16:46] LABS: AST(SGOT) 25 U/L (15-37); Alanine Aminotransfer ALT/SGPT 36 U/L (16-61); Albumin, Serum 3.8 g/dL (3.2-5.0); Alkaline Phosphatase 91 U/L (45-117); Bilirubin, Direct 0.29 mg/dL (0.00-0.30); Cholesterol 84 mg/dL (200); Globulin 3.8 g/dL (2.2-4.2); High Density Lipoprotein 34 mg/dL; Protein, Total 7.6 g/dL (6.4-8.2); Triglycerides 117 mg/dL; Very Low Density Lipoprotein 23 mg/dL (5-40)
== END ==
PROVIDERS: PCP Internal Medicine; Visit Provider Internal Medicine Cardiovascular Disease
DX: E78.00 Pure hypercholesterolemia, unspecified (principal)
CPT/HCPCS: 36415; 80061; 80076

== ENCOUNTER 2020-08-27 12:14 | Emergency (ER) | payer MEDICARE, SELFPAY ==
[2020-03-19 15:25] VITALS: BMI 40.1
[2020-08-27 12:20] VITALS: BP 134/72; PULSE 77; RESP 18; TEMP 36.7; O2SAT 91; BMI 39.7
--- NOTE | 2020-08-27 12:24 | CT_ITS ---
STUDY: CT BRAIN WITHOUT CONTRAST REASON FOR EXAM: Male, 84 years old. Add injury following a fall. RADIATION DOSAGE (If Supplied By Facility): CTDIvol = ( 44.99 ) mGy, DLP = ( 914.22 ) mGycm TECHNIQUE: Transaxial CT imaging of the brain was performed without administration of intravenous contrast material. Individualized dose optimization techniques were used for this CT. COMPARISON: Comparison is made with prior study dated 04/27/2017. FINDINGS: Normal soft tissue structures. Normal calvarium. There is moderate cerebral atrophy with widening of the extra-axial spaces and ventricular dilatation. There are areas of decreased attenuation within the white matter tracts of the supratentorial brain, consistent with microvascular disease changes. Normal basal ganglia and thalami. Normal brainstem. There is mild cerebellar atrophy. There is no intracranial hemorrhage. There are no findings of an acute ischemic infarction. Atherosclerotic calcification of the vertebral arteries and cavernous portions of the internal carotid arteries bilaterally. Normal visualized paranasal sinuses. CT/Brain/Head without Contrast IMPRESSION: Chronic involutional changes of the brain. Electronically Signed: Enrique Khan MD at 12:58 EDT , Service support ,
--- NOTE | 2020-08-27 15:10 | CT_ITS ---
STUDY: CT CERVICAL SPINE WITHOUT CONTRAST REASON FOR EXAM: Male, 84 years old. trauma RADIATION DOSAGE (If Supplied By Facility): CTDIvol = ( 24.79 ) mGy, DLP = ( 574.26 ) mGycm TECHNIQUE: High resolution transaxial imaging was performed without contrast material. Sagittal and coronal images were reconstructed. Individualized dose optimization techniques were used for this CT. COMPARISON: None FINDINGS: Normal craniovertebral junction. Normal anterior atlantoaxial articulation. Normal odontoid process. Normal cervical lordosis. Normal vertebral bodies and posterior osseous elements. C2-3: Normal endplates. Normal disc height and morphology. Normal central canal and intervertebral neuroforamina. C3-4: Normal endplates. Normal disc height and morphology. Normal central canal and intervertebral neuroforamina. C4-5: Minor endplate spurring.. Normal disc height and morphology. Normal central canal. Moderate left neuroforaminal stenosis secondary to bony hypertrophy. C5-6: Minor endplate spurring. Narrowed disc space. No focal disc protrusion.. Normal central canal and bilateral intervertebral neural foramina C6-7: Narrowed disc space and endplate spurring. No focal disc protrusion. Normal central canal and bilateral intervertebral neural foramina.. C7-T1: Normal endplates. Normal disc height and morphology. Normal central canal and intervertebral neuroforamina. Multifocal ossification of the nuchal ligament. CT/Spine Cervical without Contras IMPRESSION: No acute fracture or subluxation. Mild spondylosis most severe at C5-6 and C6-7. Electronically Signed: Mu Ambrosio MD at 16:06 EDT , Service support ,
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
[2020-08-27 15:35] LABS: Absolute Lymphocyte Count 2.06 X10^3/uL (0.83-4.51); Absolute Neutrophil Count 6.9 X10^3/uL (2.0-7.7); Basophil# 0.06 X10^3/uL; Basophil% 0.6 % (0-1); Eosinophil# 0.14 X10^3/uL; Eosinophils% 1.4 % (0-5); Hematocrit 45.9 % (40-54); Hemoglobin 15.9 g/dL (13.0-16.5); Lymphocyte # 2.06 X10^3/ul (0.83-4.51); Mean Corp Hgb Conc 34.6 g/dL (32-36); Mean Corpuscular Hgb 30.2 pg (27.0-32.0); Mean Corpuscular Volume 87.3 fL (80-94); Mean Platelet Vol. 10.2 fl (6.2-12.0); Monocyte# 1.04 X10^3/uL; Monocyte% 10.1 % (0-10); NRBC Flagged by Analyzer 0 % (0-5); Neutrophil # 6.92 X10^3/uL (2.7-7.7); Neutrophil % 67.2 % (47-70); Platelet Count 156 K/mm3 (150-450); RBC Distribution Width CV 12.3 % (11.6-14.6); Red Blood Count 5.26 M/mm3 (4.6-6.2); White Blood Count 10.3 K/mm3 (4.4-11.0)
[2020-08-27 15:43] LABS: International Normalized Ratio 1.2; Prothrombin Time (Protime)PT. 14.2 SECONDS (11.7-14.9)
[2020-08-27 15:51] LABS: ALB/GLOB Ratio 0.9 RATIO (0.9-2.4); AST(SGOT) 32 U/L (15-37); Alanine Aminotransfer ALT/SGPT 30 U/L (16-61); Albumin, Serum 3.5 g/dL (3.2-5.0); Alkaline Phosphatase 87 U/L (45-117); Anion Gap 3 (5-15); BUN 25 mg/dL (7-18); BUN/Creat Ratio 23.4 RATIO (10-20); Calcium,Total 9.2 mg/dL (8.5-10.1); Chloride 109 mmol/L (98-107); Creatinine, Serum 1.07 mg/dL (0.70-1.30); EST Glomerular Filtration Rate 70 mL/min (>60); Est Glom Filt Rate - Afr Amer 84 mL/min (>60); Estimated Creatinine Clearance 60.33 ml/min; Globulin 4.1 g/dL (2.2-4.2); Glucose 108 mg/dL (74-106); Potassium 4.3 mmol/L (3.5-5.1); Protein, Total 7.6 g/dL (6.4-8.2); Sodium Level 137 mmol/L (136-145)
[2020-08-27 17:18] VITALS: BP 145/78; PULSE 81; RESP 14; O2SAT 98
== END 2020-08-27 17:19 | disposition home or self-care (01) ==
PROVIDERS: Emergency Provider Emergency Medicine; PCP Internal Medicine
DX: R04.0 Epistaxis (principal); S06.0X0A Concussion without loss of consciousness, initial encounter; W06.XXXA Fall from bed, initial encounter; I10 Essential (primary) hypertension; I25.10 Atherosclerotic heart disease of native coronary artery without angina pectoris; Z79.82 Long term (current) use of aspirin; Z79.01 Long term (current) use of anticoagulants; Z86.711 Personal history of pulmonary embolism; Z86.718 Personal history of other venous thrombosis and embolism; Z87.891 Personal history of nicotine dependence; M54.6 Pain in thoracic spine
CPT/HCPCS: 70450; 72125; 72128; 80053; 85025; 85610; 99284; A4216

== ENCOUNTER 2020-09-29 18:14 | Emergency (ER) | payer MEDICARE, SELFPAY ==
[2020-09-02 13:00] VITALS: BMI 40.3
[2020-09-29 18:32] VITALS: BP 158/85; PULSE 86; RESP 16; TEMP 35.8; O2SAT 94; BMI 39.8
[2020-09-29 18:32] LABS: Bacteria 0 SEEN /hpf (None Seen); Mucous, Urine 0 SEEN /hpf (<or=2+); Red Blood Cells-Urine 0 SEEN /hpf (0-5)
[2020-09-29 18:34] LABS: Color, Urine Yellow (Yellow); Glucose, Dipstick Normal (Normal); Ketone-Dipstick Negative (Negative); Leukocyte Esterase-Dipstick 100 /ul (Negative); Nitrite-Dipstick Negative (Negative); Occult Blood-Urine Negative /ul (Negative); Protein-Dipstick Negative (Negative); Specific Gravity, Urine 1.015 (1.002-1.030); Urine Bilirubin Dipstick Negative (Negative); Urine Clarity Sl. Cloudy (Clear); Urine Urobilinogen Normal (Normal)
[2020-09-29 18:37] VITALS: BP 158/85; PULSE 84; RESP 18; TEMP 35.8; O2SAT 94
[2020-09-29 18:46] LABS: Squamous Epithelial Cells - UA 0-5 SEEN /hpf (0-5); White Blood Cells 10-25 SEEN /hpf (0-5)
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
[2020-09-29 20:07] LABS: Absolute Lymphocyte Count 1.49 X10^3/uL (0.83-4.51); Absolute Neutrophil Count 4.4 X10^3/uL (2.0-7.7); Basophil# 0.05 X10^3/uL; Basophil% 0.7 % (0-1); Eosinophil# 0.16 X10^3/uL; Eosinophils% 2.3 % (0-5); Hematocrit 43.9 % (40-54); Hemoglobin 14.6 g/dL (13.0-16.5); Lymphocyte # 1.49 X10^3/ul (0.83-4.51); Mean Corp Hgb Conc 33.3 g/dL (32-36); Mean Corpuscular Hgb 29.6 pg (27.0-32.0); Mean Platelet Vol. 10.2 fl (6.2-12.0); Monocyte# 0.91 X10^3/uL; Monocyte% 12.8 % (0-10); NRBC Flagged by Analyzer 0 % (0-5); Neutrophil # 4.44 X10^3/uL (2.7-7.7); Neutrophil % 62.4 % (47-70); Platelet Count 149 K/mm3 (150-450); RBC Distribution Width CV 12.6 % (11.6-14.6); RBC Distribution Width SD 41.1 fl (35.1-43.9); Red Blood Count 4.93 M/mm3 (4.6-6.2); White Blood Count 7.1 K/mm3 (4.4-11.0)
[2020-09-29 20:30] LABS: Anion Gap 5 (5-15); BUN 21 mg/dL (7-18); BUN/Creat Ratio 20.8 RATIO (10-20); Calcium,Total 8.9 mg/dL (8.5-10.1); Chloride 106 mmol/L (98-107); Creatinine, Serum 1.01 mg/dL (0.70-1.30); EST Glomerular Filtration Rate 74 mL/min (>60); Est Glom Filt Rate - Afr Amer 90 mL/min (>60); Estimated Creatinine Clearance 62.75 ml/min; Glucose 95 mg/dL (74-106); Potassium 3.9 mmol/L (3.5-5.1); Sodium Level 140 mmol/L (136-145)
[2020-09-29 21:47] VITALS: PULSE 80; RESP 16; O2SAT 98
== END 2020-09-29 21:48 | disposition home or self-care (01) ==
PROVIDERS: Emergency Provider Emergency Medicine; PCP Internal Medicine
DX: R41.0 Disorientation, unspecified (principal); Z79.01 Long term (current) use of anticoagulants; V43.52XA Car driver injured in collision with other type car in traffic accident, initial encounter; Y93.89 Activity, other specified; Y92.89 Other specified places as the place of occurrence of the external cause; Y99.8 Other external cause status; I25.10 Atherosclerotic heart disease of native coronary artery without angina pectoris; E78.5 Hyperlipidemia, unspecified; N40.0 Benign prostatic hyperplasia without lower urinary tract symptoms; Z87.891 Personal history of nicotine dependence; I67.82 Cerebral ischemia; Z79.82 Long term (current) use of aspirin; Z79.899 Other long term (current) drug therapy; Z95.5 Presence of coronary angioplasty implant and graft
CPT/HCPCS: 70450; 80048; 81001; 85025; 99285

== ENCOUNTER → 2022-04-04 | Outpatient (CLI) | payer MEDICARE, SELFPAY ==
[2022-04-04 15:58] LABS: AST(SGOT) 25 U/L (15-37); Alanine Aminotransfer ALT/SGPT 31 U/L (16-61); Albumin, Serum 3.6 g/dL (3.2-5.0); Alkaline Phosphatase 84 U/L (45-117); Bilirubin, Direct 0.34 mg/dL (0.00-0.30); Cholesterol 84 mg/dL (200); Globulin 3.8 g/dL (2.2-4.2); High Density Lipoprotein 33 mg/dL; Protein, Total 7.4 g/dL (6.4-8.2); Triglycerides 82 mg/dL; Very Low Density Lipoprotein 16 mg/dL (5-40)
== END | disposition home or self-care (01) ==
LOC: LAB 14:03
PROVIDERS: PCP Internal Medicine; Referring Provider Internal Medicine Cardiovascular Disease; Visit Provider Internal Medicine Cardiovascular Disease
DX: E78.00 Pure hypercholesterolemia, unspecified (principal)
CPT/HCPCS: 36415; 80061; 80076

== ENCOUNTER 2023-11-12 13:29 | Emergency (ER) | payer MEDICARE, SELFPAY ==
[2023-11-12] VITALS (7 sets, daily range): BP systolic 97–136; BP diastolic 53–97; PULSE 82–110; RESP 16–23; TEMP 36.3–37.4; O2SAT 93–96; BMI 37.0
--- NOTE | 2023-11-12 13:48 | EKG12_ITS ---
Test Reason : GI Blood Pressure : / mmHG Vent. Rate : 101 BPM Atrial Rate : 101 BPM P-R Int : 256 ms QRS Dur : 130 ms QT Int : 352 ms P-R-T Axes : 066 -44 010 degrees QTc Int : 456 ms Sinus tachycardia with 1st degree A-V block Left axis deviation Right bundle branch block Abnormal ECG Confirmed by ROME LÓPEZ, ODALIS ([id number]), editor managing newspaper AUSTIN YUAN ([id number]) on 11/15/2023 9:48:04 AM Referred By: Confirmed By:WILLIAM PETER MD
--- NOTE | 2023-11-12 13:49 | EX.ED.DYSGE1 ---
HPI History of Present Illness Chief Complaint: Complaint Narrative Narrative: History and physical mildly limited secondary to mental status change. Patient presents with reported hematuria, and cough. While he lives alone, he has family members who come over and help him with his activities of daily living, do the cooking and cleaning. At the bedside is his stepdaughter who states she is now patient's advocate as her mother last year. She states that she noticed blood in the bathroom when she came to visit today. Also the urinal at the side of his bed was splattered with urine. Patient does take a blood thinner in the form of Xarelto for right leg DVT. She states that he has had elevated temperature when taken here, she noticed a cough. He seems more confused to her as he is usually more alert and attentive. 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 hyperplasia Influenza A BPH (benign prostatic hyperplasia) Bronchitis Weakness Rhabdomyolysis Hx of deep venous thrombosis Tinea pedis of right foot Right leg DVT Cellulitis of right lower extremity Edema leg Home Medications ?Medication ?Instructions ?Recorded ?Last Taken ?Type aspirin 81 mg tablet,delayed 81 mg PO DAILY@0800 #30 tabs 05/05/17 Unknown Rx release atorvastatin 40 mg tablet 40 mg PO QHS #30 tabs 05/05/17 Unknown Rx tamsulosin 0.4 mg capsule 0.8 mg PO QHS 10/27/17 Unknown History saw palmetto 450 mg capsule 450 mg PO BID supplement 02/15/18 Unknown History rivaroxaban 20 mg tablet 20 mg PO DAILY blood thinner:start 08/27/18 Unknown Rx after 15 mg tablets are gone ##0 carvedilol 3.125 mg tablet 3.125 mg PO BID 09/09/19 Unknown History furosemide 20 mg tablet 20 mg PO QDAY diuretic #90 tabs 06/13/23 Unknown Rx lisinopril 30 mg tablet 20 mg (0.6667 x 30 mg) PO BID 06/13/23 Unknown Rx blood pressure #180 tabs potassium chloride 8 mEq 8 meq PO DAILY #90 caps 06/13/23 Unknown Rx capsule,extended release oxybutynin chloride 10 mg 10 mg PO DAILY 11/12/23 Unknown History tablet,extended release 24 hr Allergy/AdvReac Type Severity Reaction Status Date / Time Penicillins (PCN) Allergy Rash Verified 06/13/23 14:54 Family History Father Myocardial infarction Surgical History Presence of stent in coronary artery (05/04/17) Social History Smoking Status: Former smoker alcohol intake: never substance use type: does not use caffeine: Yes Type: coffee Number of servings: 1 what type of physical activity do you participate in: other frequency: 5-6 times per week duration: 15-30 minutes/day do you feel safe at home: Yes ROS ROS ED ROS Narrative Limited secondary to current mental status. Constitutional: No fever but felt warm to family member, no chills. HEENT: No sore throat. No neck pain. No loss of vision. No rhinorrhea. Cardiovascular: No chest pain. No palpitations. No pedal edema. Respiratory: Positive cough, no shortness of breath. Abdominal: No abdominal pain. No nausea. No vomiting. Genitourinary: No dysuria. Positive hematuria according to family. Musculoskeletal: No myalgias. No arthralgias. Neurologic: No headaches. No dizziness. No lightheadedness. Positive confusion. Skin: No rash. No change in color. Psychiatric: No depression. No anxiety. EXAM Physical Exam Narrative Exam Narrative: Temperature 99.4 ?F. Vital signs noted. Nontoxic-appearing. Positive intermittent tachycardia. Lungs clear to auscultation bilaterally. Abdomen soft nontender with normal bowel sounds. Visual inspection of genitalia does show dried blood in his undergarment. No profuse active bleeding. Skin shows no evidence of profound pallor. Const Vital Signs: 11/12/23 13:32 11/12/23 14:49 11/12/23 16:00 Temperature 99.4 F H 98.1 F 98.9 F Temperature Source Oral Temporal Temporal Pulse Rate 110 H 93 95 Respiratory Rate 16 21 H 22 H Blood Pressure 123/68 H 133/58 H 105/88 H Blood Pressure Mean 86 83 93 Pulse Ox 94 93 94 Oxygen Delivery Method Room Air Room Air Room Air 11/12/23 16:42 Temperature Temperature Source Pulse Rate 95 Respiratory Rate 23 H Blood Pressure 102/53 L Blood Pressure Mean 69 Pulse Ox 93 Oxygen Delivery Method Room Air MDM MDM MDM Narrative Medical decision making narrative: Concern is for infectious process such as pneumonia given his cough and slightly elevated temperature. Additionally, he may have a urinary tract infection causing hemorrhagic cystitis. I have lower suspicion for pneumothorax. He may be having gross hematuria secondary to his use of Xarelto. Patient be bolused normal saline 1 L intravenously. He also may be dehydrated causing his tachycardia and confusion, or have other electrolyte imbalance. EKG was obtained and interpreted by myself independently as sinus tachycardia with first-degree AV block at 101 bpm. There is a right bundle branch block. No acute ST changes. No STEMI. Repeat examination shows current heart rate in the 90s. I reviewed his laboratory work and he has normal white count of 8.8, no anemia with a hemoglobin of 14. Platelet count slightly low at 132 which I think is nonspecific. He has had intermittent thrombocytopenia in the past as well. Review of his electrolyte panel is grossly unremarkable except BUN of 25 with creatinine 1.09, glucose is elevated at 138, anion gap normal at 7. Lactic acid is elevated at 2.2, but I do not suspect sepsis. This may be secondary to mild dehydration. AST normal at 25 with ALT of 21 and alk phos 92. Urinalysis was obtained and is negative for infection. They are greater than 100 RBCs. Barclay catheter had been placed by RN and bladder irrigated. They states they remove multiple clots. I had the RN reirrigate the bladder with 1 L of normal saline and it is almost clear. As he had gross hematuria without infection, I did obtain a CT of the abdomen pelvis without contrast. I reviewed the radiology report which states there are bilateral renal cysts, and there may be renal stones, but no evidence of ureterolithiasis. I do feel that his gross hematuria may be secondary to his anticoagulant use. Chest x-ray in 1 view interpreted by myself independently shows no evidence of pneumonia or pneumothorax. I reviewed the radiology report which confirms my independent interpretation. His pulse ox remains steady at 93 to 94% on room air. Given his gross hematuria, and confusion, I initially discussed the patient with Dr. Caraballo the hospitalist, but urology is not available at this time, and in the event of rebleed, transfer was suggested. I discussed patient with the [facility]'s transfer [facility] for transfer. This point in time, he is pending transfer. Patient signed out to oncoming physician, Dr. Camarena to ensure transfer. Patient is in stable condition. History & Record Review Discussion w/independent historian: Patient and Family (Stepdaughter) Additional record(s) reviewed:: Prior labs Lab Data Attestation: I reviewed the patient's lab results. Labs: Laboratory Results - last 24 hr 11/12/23 11/12/23 13:35 14:40 WBC 8.8 RBC 4.66 Hgb 14.0 Hct 41.8 MCV 89.7 MCH 30.0 MCHC 33.5 RDW Std Deviation 40.0 RDW Coeff of Owen 12.3 Plt Count 132 L MPV 10.7 Immature Gran % (Auto) 0.500 Neut % (Auto) 86.0 H Lymph % (Auto) 4.8 L Whitman % (Auto) 8.2 Eos % (Auto) 0.2 Baso % (Auto) 0.3 Absolute Neuts (auto) 7.6 Absolute Lymphs (auto) 0.42 L Nucleated RBC % 0 Sodium 137 Potassium 3.8 Chloride 106 Carbon Dioxide 24.0 Anion Gap 7 BUN 25 H Creatinine 1.09 Estim Creat Clear Calc 67.94 Est GFR (MDRD) Af Amer 82 Est GFR (MDRD) Non-Af 68 BUN/Creatinine Ratio 22.9 H Glucose 138 H Lactic Acid 2.2 H* Calcium 8.8 Total Bilirubin 1.60 H AST 25 ALT 21 Alkaline Phosphatase 92 Total Protein 7.0 Albumin 3.2 Globulin 3.8 Albumin/Globulin Ratio 0.8 L Urine Color Red Urine Clarity Turbid Urine pH 7.0 Ur Specific [place] 1.010 Urine Protein 500 H Urine Glucose (UA) Normal Urine Ketones 15 H Urine Occult Blood 250 H Urine Nitrite Negative Urine Bilirubin Negative Urine Urobilinogen Normal Ur Leukocyte Esterase Negative Urine RBC > 100 SEEN Urine WBC 0 SEEN Ur Squamous Epith Cells 0 SEEN Urine Bacteria 0 SEEN Urine Mucus 0 SEEN Radiography Diagnostic Testing: Clinical Impression(s) from Imaging Studies Chest X-Ray 11/12/23 14:12 IMPRESSION: There are no acute findings. Electronically Signed: Aaron Pandey MD at 14:28 EDT , Abdomen/Pelvis CT 11/12/23 14:42 IMPRESSION: (NOT LISTED IN ORDER OF SIGNIFICANCE) There are no acute findings. Nonobstructive right renal stones. Other findings as above. Electronically Signed: Aaron Pandey MD at 15:48 EDT , Discharge Plan Triage Chief Complaint: Complaint ED Provider: Tristen Chopra Dx/Rx/DC Orders Clinical Impression: Gross hematuria, Anticoagulant-induced hematuria, Confusion, Elevated lactic acid level Prescriptions: No Action tamsulosin 0.4 mg capsule 0.8 mg PO QHS saw palmetto 450 mg capsule 450 mg PO BID carvedilol 3.125 mg tablet 3.125 mg PO BID Rx Instructions: must administer with a meal/food potassium chloride 8 mEq capsule, extended release 8 meq PO DAILY Qty: 90 3RF furosemide 20 mg tablet 20 mg PO QDAY Qty: 90 3RF lisinopril 30 mg tablet 20 mg PO BID Qty: 180 3RF atorvastatin 40 MG tablet 40 mg PO QHS Qty: 30 0RF aspirin 81 MG tablet 81 mg PO DAILY@0800 Qty: 30 0RF rivaroxaban 20 mg tablet 20 mg PO DAILY Qty: 0 0RF Rx Instructions: Hold until completion of Xarelto 15mg twice daily. Then resume xarelto 20mg daily. oxybutynin chloride 10 mg tablet extended release 24hr 10 mg PO DAILY Primary Care Provider: Orlando Flores Referrals: Orlando Flores MD [Primary Care Provider] - Print Language: Latvian
[2023-11-12] MEDS: 0.9% Normal Saline (1000mL) 1,000 ML 1000 ML IV (13:55)
[2023-11-12 14:08] LABS: Absolute Lymphocyte Count 0.42 X10^3/uL (0.83-4.51); Absolute Neutrophil Count 7.6 X10^3/uL (2.0-7.7); Basophil# 0.03 X10^3/uL; Basophil% 0.3 % (0-1); Eosinophil# 0.02 X10^3/uL; Eosinophils% 0.2 % (0-5); Hematocrit 41.8 % (40-54); Lymphocyte # 0.42 X10^3/ul (0.83-4.51); Lymphocyte % 4.8 % (19-41); Mean Corp Hgb Conc 33.5 g/dL (32-36); Mean Corpuscular Volume 89.7 fL (80-94); Mean Platelet Vol. 10.7 fl (6.2-12.0); Monocyte# 0.72 X10^3/uL; Monocyte% 8.2 % (0-10); NRBC Flagged by Analyzer 0 % (0-5); Neutrophil # 7.58 X10^3/uL (2.7-7.7); POSITIVE DIFFERENTIAL YES; Platelet Count 132 K/mm3 (150-450); RBC Distribution Width CV 12.3 % (11.6-14.6); Red Blood Count 4.66 M/mm3 (4.6-6.2); White Blood Count 8.8 K/mm3 (4.4-11.0)
--- NOTE | 2023-11-12 14:12 | RAD_ITS ---
STUDY: XR Chest 1 View 11/12/2023 2:13 PM REASON FOR EXAM: Male, 88 years old. Cough COMPARISON: 08/24/2018 TECHNIQUE: XR Chest 1 View FINDINGS: There is no demonstrated pleural abnormality. Normal heart size. Normal mediastinum. Normal makenzie. Prominent appearing increased interstitial lung markings. Normal visualized pulmonary arteries. There is atherosclerotic calcification of the aortic arch with tortuosity. There are diffuse degenerative changes of the visualized thoracic spine. There is degenerative osteoarthritis of the bilateral shoulders. There are no acute findings of the upper abdomen. RAD/Chest 1 View (Portable) IMPRESSION: There are no acute findings. Electronically Signed: Aaron Pandey MD at 14:28 EDT ,
[2023-11-12 14:23] LABS: ALB/GLOB Ratio 0.8 RATIO (0.9-2.4); AST(SGOT) 25 U/L (15-37); Alanine Aminotransfer ALT/SGPT 21 U/L (16-61); Albumin, Serum 3.2 g/dL (3.2-5.0); Alkaline Phosphatase 92 U/L (45-117); Anion Gap 7 (5-15); BUN 25 mg/dL (7-18); BUN/Creat Ratio 22.9 RATIO (10-20); Calcium,Total 8.8 mg/dL (8.5-10.1); Chloride 106 mmol/L (98-107); Creatinine, Serum 1.09 mg/dL (0.70-1.30); EST Glomerular Filtration Rate 68 mL/min (>60); Est Glom Filt Rate - Afr Amer 82 mL/min (>60); Estimated Creatinine Clearance 67.94 ml/min; Globulin 3.8 g/dL (2.2-4.2); Glucose 138 mg/dL (74-106); Potassium 3.8 mmol/L (3.5-5.1); Sodium Level 137 mmol/L (136-145)
[2023-11-12 14:38] LABS: Lactic Acid 2.2 mmol/L (0.4-1.9)
--- NOTE | 2023-11-12 14:42 | CT_ITS ---
STUDY: CT Abdomen And Pelvis W/O Contrast Injection 11/12/2023 3:44 PM REASON FOR EXAM: Male, 88 years old. Abdominal pain gross hematuria Individualized dose optimization techniques were used for this CT. COMPARISON: None. TECHNIQUE: CT Abdomen And Pelvis W/O Contrast Injection FINDINGS: There are atherosclerotic calcifications of visualized coronary arteries. The visualized portions of the heart are within normal limits. Normal liver. Normal gallbladder and extrahepatic biliary system. Normal spleen. Normal pancreas. Calcified splenic artery aneurysm. Normal bilateral adrenal glands. Non obstructive 2 mm right renal parenchymal stones. There are hypodensities in the left kidney. These are consistent for cysts. No follow up required. There are hypodensities in the right kidney. These are consistent for cysts. No follow up required. Normal visualized stomach. Normal small intestine. There are multiple colonic diverticula consistent with diverticulosis. There is non-visualization of the appendix. There is a duodenal diverticulum. This is near the pancreatic head. There are calcifications of the abdominal aorta. This is consistent for atherosclerotic disease. There is NO abdominal aortic aneurysm. Vascular workup can be obtained based on clinical correlation. Normal inferior vena cava. Subcentimeter mesenteric lymph nodes. There is a Barclay balloon catheter in the urinary bladder. There is enlargement of the prostate gland. There is an umbilical hernia containing fat. There are diffuse degenerative changes of the visualized lumbar spine. There is bilateral neural foraminal stenosis at L4-5 and L5-S1. CT/Abdomen/Pelvis without Cont IMPRESSION: (NOT LISTED IN ORDER OF SIGNIFICANCE) There are no acute findings. Nonobstructive right renal stones. Other findings as above. Electronically Signed: Aaron Pandey MD at 15:48 EDT ,
[2023-11-12 14:49] LABS: Bacteria 0 SEEN /hpf (None Seen); Mucous, Urine 0 SEEN /hpf (<or=2+); Squamous Epithelial Cells - UA 0 SEEN /hpf (0-5); White Blood Cells 0 SEEN /hpf (0-5)
--- NOTE | 2023-11-12 14:51 | NURSING ---
Upon attempt to straight cath, pt found w/ large amount of blood clots in his brief. Decided to place [address] roy, irrigated approx 300-400 cc blood/clots. Dr. Chopra made aware.
[2023-11-12 15:32] LABS: Color, Urine Red (Yellow); Glucose, Dipstick Normal (Normal); Ketone-Dipstick 15 mg/dl (Negative); Leukocyte Esterase-Dipstick Negative /ul (Negative); Nitrite-Dipstick Negative (Negative); Occult Blood-Urine 250 /ul (Negative); Protein-Dipstick 500 mg/dl (Negative); Urine Bilirubin Dipstick Negative (Negative); Urine Clarity Turbid (Clear); Urine Urobilinogen Normal (Normal)
[2023-11-12 15:42] LABS: Red Blood Cells-Urine > 100 SEEN /hpf (0-5)
--- NOTE | 2023-11-12 16:01 | NURSING ---
CALLED [facility]AE[facility] TO INITIATE TRANSFER
--- NOTE | 2023-11-12 17:32 | NURSING ---
PATIENT ACCEPTED AT [facility]. WAITING ON A ROOM
[2023-11-12 18:03] LABS: Reflex Lactate? Y
[2023-11-12 18:40] LABS: Lactic Acid 1.1 mmol/L (0.4-1.9)
== END 2023-11-12 20:48 | disposition short-term general hospital (02) ==
PROVIDERS: Emergency Provider Emergency Medicine; PCP Internal Medicine; Visit Provider Emergency Medicine
DX: R31.0 Gross hematuria (principal); R74.8 Abnormal levels of other serum enzymes; Z87.891 Personal history of nicotine dependence; I45.10 Unspecified right bundle-branch block; R41.0 Disorientation, unspecified; E78.5 Hyperlipidemia, unspecified; I44.0 Atrioventricular block, first degree; I25.10 Atherosclerotic heart disease of native coronary artery without angina pectoris; Z79.01 Long term (current) use of anticoagulants; Z86.718 Personal history of other venous thrombosis and embolism
CPT/HCPCS: 71045; 74176; 80053; 81001; 83605; 85025; 93005; 99284; J7030; A4216

== ENCOUNTER 2023-11-23 10:34 | Inpatient (IN) | payer MEDICARE, SELFPAY ==
--- NOTE | 2023-11-23 11:06 | HP.PCM_ITS ---
[facility] - General General Date of Admission: 11/23/23 Date of Service: 11/23/23 Chief Complaint: Here for rehabilitation. HPI Narrative 11/12/2023 GLORIA LEE, is a 88 Male who presents to [facility] ED with complaint. Change in mental status, hematuria, cough. Blood in bathroom, beside urinal with blood. On Xarelto for right lower extremity DVT. Fever, cough. More confused. Normal Saline 1 liter iv bolus for dehydration. Hematuria cleared with bladder irrigation. CT A/P showed bilateral renal cysts, ? renal stones, no ureterolithiasis. UA negative for infection, Chest X-ray clear. No urologic coverage at [facility]. Transfer to [facility] for urology coverage. 11/12/2023 Admit [facility] for confusion, hematuria. Consult Urology, continuous bladder irrigation, Levsin, hold Xarelto, for hematuria. Check urinalysis, Neuro checks, delirium protocol for encephalopathy. 11/13/2023 Urine dark red, CBI restarted with [address] catheter. Irrigation q4h with clot evacuation. Cipro for UTI, urine culture pending, Levsin PRN bladder spasms. CT urogram large clot burden, nonobstructing right kidney stone. Hold Xarelto. 11/14/2023 Dr. Pretty performed cystoscopy with clot evacualation, cauterizat ion. 11/15/2023 Continue CBI, urine light pink color. Cipro, Vancomycin for UTI, urine culture pending. Hold Xarelto. 11/16/2023 Urine clear, patient feels better. Flomax 0.8mg qhs for BPH. ID recommends Cipro thru 11/19/2023. Hemoglobin 10.2. Delirium improving. 11/17/2023 Urine yellow, off CBI, resume Xarelto. Start Finasteride 5mg daily. Blood cultures negative. 2cm renal mass concerning for cancer, family declined intervention for now. 11/18/2023 Urine clear yellow, Xarelto resumed last night, history of saddle embolus. Cipro thru 11/19/2023 per ID. Code status DNRCCA - DNI. No acute events overnight, urine clear yellow. Hemoglobin stable at 11.0. 11/20/2023 PT/OT SNF. 11/21/2023 Negative metastatic malignancy, oncology signed off. Urine clear yellow. Hemoglobin 11.1. PT/OT SNF. Keep K > 4, Mg > 2. 11/23/2023 Admit to TCU with debility, here for rehabilitation, strengthening, prior to discharge home alone. [facility] Medical History (Updated 11/23/23 @ 11:[address] 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) Incontinence Dementia BPH (benign prostatic hyperplasia) Rhabdomyolysis Right leg DVT Atherosclerosis of coronary artery of [place] heart without angina pectoris Troponin I above reference range Urinary retention due to benign prostatic hyperplasia Influenza A BPH (benign prostatic hyperplasia) Bronchitis Weakness Rhabdomyolysis Hx of deep venous thrombosis Tinea pedis of right foot Right leg DVT Cellulitis of right lower extremity Edema leg Home Medications ?Medication ?Instructions ?Recorded ?Last Taken ?Type aspirin 81 mg tablet,delayed 81 mg PO DAILY@0800 heart health 05/05/17 Unknown Rx release #30 tabs atorvastatin 40 mg tablet 40 mg PO QHS cholesterol #30 tabs 05/05/17 11/22/23 Rx tamsulosin 0.4 mg capsule 0.8 mg PO QHS urinary retention 10/27/17 11/22/23 History saw palmetto 450 mg capsule 450 mg PO BID supplement 02/15/18 Unknown History carvedilol 3.125 mg tablet 3.125 mg PO BID heart 09/09/19 11/22/23 History furosemide 20 mg tablet 20 mg PO QDAY diuretic #90 tabs 06/13/23 11/22/23 Rx lisinopril 30 mg tablet 20 mg (0.6667 x 30 mg) PO BID 06/13/23 Unknown Rx blood pressure #180 tabs potassium chloride 8 mEq 8 meq PO DAILY supplement #90 caps 06/13/23 Unknown Rx capsule,extended release oxybutynin chloride 10 mg 10 mg PO DAILY bladder 11/12/23 Unknown History tablet,extended release 24 hr clobetasol 0.05 % topical cream 1 applic topical BID rash 11/23/23 Unknown History finasteride 5 mg tablet 5 mg PO DAILY urination 11/23/23 11/23/23 History hydroxyzine HCl 25 mg tablet 25 mg PO TID PRN itching/rash 11/23/23 Unknown History hyoscyamine sulfate 0.125 mg 0.125 mg sublingual Q4H PRN 11/23/23 11/18/23 History sublingual tablet bladder spasms lisinopril 20 mg tablet 20 mg PO DAILY blood pressure 11/23/23 11/22/23 History rivaroxaban 20 mg tablet 20 mg PO DAILY blood thinner 11/23/23 11/22/23 History saw palmetto 500 mg capsule 500 mg PO BID supplement for 11/23/23 Unknown History urination trospium 20 mg tablet 20 mg PO BID bladder 11/23/23 11/23/23 History Allergy/AdvReac Type Severity Reaction Status Date / Time Penicillins (PCN) Allergy Rash Verified 06/13/23 14:54 Family History Father Myocardial infarction Surgical History Presence of stent in coronary artery (05/04/17) Social History (Updated 11/23/23 @ 11:[address] Beni Martins MD) household members: none and other details: Family assist with ADL's, cooking, cleaning. Smoking Status: Former smoker alcohol intake: never substance use type: does not use caffeine: Yes Type: coffee Number of servings: 1 what type of physical activity do you participate in: other frequency: 5-6 times per week duration: 15-30 minutes/day do you feel safe at home: Yes ROS Constitutional Constitutional: Reports weakness; Denies chills, fever(s) or weight gain ENT HEENT: Denies headache(s), nasal congestion or nasal discharge Cardiovascular Cardiovascular: Denies chest pain or palpitations Respiratory/Chest Respiratory/Chest: Denies cough, excessive phlegm production or shortness of breath with exertion Gastrointestinal Gastrointestinal: Denies abdominal pain, nausea or vomiting Genitourinary Genitourinary: Denies dysuria Musculoskeletal Musculoskeletal: Denies joint pain or joint swelling Integumentary Integumentary: Denies rash or wounds Neurologic Neurologic: Denies focal weakness, numbness or tingling Psychiatric Psychiatric: Denies anxiety, auditory hallucinations, depression, homicidal ideation or suicidal ideation Physical Exam Const alert General Appearance: cooperative HEENT normocephalic Eyes PERRL and EOMs intact bilaterally Neck supple, no JVD and no carotid bruits Resp normal respiratory effort, normal air movement and clear to auscultation bilaterally Cardio regular rate and regular rhythm GI normal to inspection, nondistended, normoactive bowel sounds, non-tender and non-distended Extremity normal capillary refill General Extremity: Negative for edema Skin no rashes or lesions noted General Skin Exam: no breakdown Psych affect normal Appearance: appropriate Assessment & Plan Assessment/Plan (1) Debility: (2) Hematuria: (3) Encephalopathy: (4) Urinary tract infection: (5) Pulmonary embolism: (6) Right leg DVT: QUALIFIERS: Affected thrombotic vein of extremity: unspecified vein of extremity Chronicity: chronic Qualified Code(s): I82.501 - Chronic embolism and thrombosis of unspecified deep veins of right lower extremity (7) HLD (hyperlipidemia): (8) BPH (benign prostatic hyperplasia): (9) Coronary artery disease: (10) Hypokalemia: (11) Overactive bladder: PLAN: Plan 88 year old male with below past medical history hospitalized for hematuria, resolved with cystoscopy/clot evacuation/cauterization, complicated by encephalopathy, urinary tract infection, admitted to TCU with debility, here for rehabilitation, strengthening, prior to discharge home alone. * Debility - PT/OT. * Pain - Tylenol 1000mg q6 prn pain (1-10). * Bowel - senna/colace 1 tablet bid, Magnesium citrate 300ml daily prn. * Adult immunization - Administer pneumonia vaccine, covid vaccine, flu vaccine as appropriate. * DVT prophylaxis - on Xarelto. * Hematuria - Barclay out, consult Urology if available. * Hyperlipidemia - Atorvastatin 40mg qhs. * CAD - Coreg 3.125mg bid, Lisinopril 20mg daily, Xarelto 20mg daily. * Rash - Clobetasol cream topical bid. * BPH - Finasteride 5mg daily, Tamsulosin 0.8mg daily. * Edema - Furosemide 20mg daily. * Pruritus - Hydroxyzine 25mg tid prn. * Bladder spasms - Levsin 0.125mg sl q4h prn. * Hypokalemia - KCL 10meq daily. * Overactive bladder - Tolterodine 2mg daily.
[2023-11-23 11:26] VITALS: BP 116/64; PULSE 82; RESP 16; TEMP 36.2; O2SAT 95; BMI 37.0
[2023-11-23] MEDS: Magnesium Citrate 300 ML PO (14:24)
[2023-11-23 20:40] VITALS: BP 101/56; PULSE 86
[2023-11-23] MEDS: CLOBETASOL PROPIONATE TOPICAL (20:44)
[2023-11-23] MEDS: Atorvastatin Calcium 40 MG Tablet PO (20:47)
[2023-11-23] MEDS: Carvedilol 3.125 MG TABLET PO (20:47)
[2023-11-23] MEDS: Senna/Docusate Sodium 1 Tablet PO (20:47)
[2023-11-23] MEDS: Nystatin Powder 15gm Bottle 1 APPLIC TOPICAL (20:47)
[2023-11-23] MEDS: Menthol/Lanolin/Calamine/Znox 113 GM Tube 1 APPLIC TOPICAL (20:47)
[2023-11-23] MEDS: Tamsulosin HCl 0.4 MG Capsule 0.8 MG PO (20:47)
[2023-11-24 06:07] LABS: Absolute Lymphocyte Count 1.42 X10^3/uL (0.83-4.51); Absolute Neutrophil Count 5.4 X10^3/uL (2.0-7.7); Basophil# 0.11 X10^3/uL; Basophil% 1.3 % (0-1); Eosinophil# 0.29 X10^3/uL; Eosinophils% 3.5 % (0-5); Hematocrit 34.8 % (40-54); Hemoglobin 11.2 g/dL (13.0-16.5); Lymphocyte # 1.42 X10^3/ul (0.83-4.51); Lymphocyte % 17.1 % (19-41); Mean Corp Hgb Conc 32.2 g/dL (32-36); Mean Corpuscular Hgb 29.7 pg (27.0-32.0); Mean Corpuscular Volume 92.3 fL (80-94); Mean Platelet Vol. 9.6 fl (6.2-12.0); Monocyte# 0.91 X10^3/uL; NRBC Flagged by Analyzer 0 % (0-5); Neutrophil # 5.44 X10^3/uL (2.7-7.7); Neutrophil % 65.5 % (47-70); Platelet Count 212 K/mm3 (150-450); RBC Distribution Width CV 13.6 % (11.6-14.6); RBC Distribution Width SD 44.6 fl (35.1-43.9); Red Blood Count 3.77 M/mm3 (4.6-6.2); White Blood Count 8.3 K/mm3 (4.4-11.0)
[2023-11-24 06:43] LABS: Anion Gap 3 (5-15); BUN 27 mg/dL (7-18); BUN/Creat Ratio 33.7 RATIO (10-20); Calcium,Total 8.8 mg/dL (8.5-10.1); Chloride 111 mmol/L (98-107); EST Glomerular Filtration Rate 96 mL/min (>60); Est Glom Filt Rate - Afr Amer 117 mL/min (>60); Estimated Creatinine Clearance 92.44 ml/min; Glucose 104 mg/dL (74-106); Potassium 4.4 mmol/L (3.5-5.1); Sodium Level 141 mmol/L (136-145)
[2023-11-24] MEDS: Furosemide 20 MG Tablet PO (09:14)
[2023-11-24] MEDS: CLOBETASOL PROPIONATE TOPICAL ×2 (09:14→21:56)
[2023-11-24] MEDS: Finasteride 5 MG Tablet PO (09:14)
[2023-11-24] MEDS: Tolterodine Tartrate 2 MG CAP.SA PO (09:14)
[2023-11-24] MEDS: Senna/Docusate Sodium 1 Tablet PO ×2 (09:14→21:59)
[2023-11-24] MEDS: Carvedilol 3.125 MG TABLET PO ×2 (09:14→21:58)
[2023-11-24] MEDS: Potassium Chloride Oral Tablet 10 MEQ PO (09:14)
[2023-11-24] MEDS: Rivaroxaban 20 MG Tablet PO (09:14)
[2023-11-24] MEDS: Lisinopril 20 MG Tablet PO (09:15)
[2023-11-24] MEDS: Menthol/Lanolin/Calamine/Znox 113 GM Tube 1 APPLIC TOPICAL ×2 (09:18→22:06)
[2023-11-24] MEDS: Nystatin Powder 15gm Bottle 1 APPLIC TOPICAL ×2 (09:19→21:57)
[2023-11-24] MEDS: Tuberculin,Purif.prot.deriv. 50 TU/ML Vial 0.1 ML ID (09:58)
[2023-11-24 11:15] VITALS: BP 101/51; PULSE 85; RESP 16; TEMP 36.2; O2SAT 97
--- NOTE | 2023-11-24 12:59 | NURSING ---
Exhibit Electrician Note; Activity Asset: Sara Sotelo is independent in his choice of daily activities w/reminders. He enjoys talking w/others, visiting family, watching tv, reading the paper and welcomes visits from concrete mixer and therapy dog. Deepak enjoys talking about his time in the however can get emotional at times when talking and we had a long talk about his time in [place]. Staff will encourage social visits, remind him of weekly activities and respect his right to say no.
--- NOTE | 2023-11-24 13:32 | PHA.CONS_ITS ---
TCU RX Drug Regimen Review Subjective/Objective Subjective/Objective: Subjective: RB is a 88 YO male who presented to [facility] on 11/11 with complaints of change in mental status, hematuria, and cough. He then underwent a cystoscopy on 11/13 at [facility]. He is currently admitted to TCU with debility, here for rehabilitation, strengthening, prior to discharge home alone. Objective: Allergies Penicillins (PCN) Allergy (Verified 06/13/23 14:54) Rash Current Medications Generic Name Dose Route Start Last Admin Trade Name Freq PRN Reason Stop Dose Admin Acetaminophen 1,000 mg 11/23/23 11:25 Acetaminophen 500 Mg Tablet PO Q6H PRN PRN Pain Score 1-10 Atorvastatin Calcium 40 mg 11/23/23 22:00 11/23/23 20:47 Atorvastatin Calcium 40 Mg Tablet PO 40 mg QHS HERNAN Administration Calamine/Phenol 1 applic 11/23/23 22:00 11/24/23 09:18 Menthol/Lanolin/Calamine/Znox 113 Gm Tube TOPICAL 1 applic BID HERNAN Administration Protocol Carvedilol 3.125 mg 11/23/23 22:00 11/24/23 09:14 Carvedilol 3.125 Mg Tablet PO 3.125 mg BID HERNAN Administration Protocol Clobetasol Propionate 1 - 5 ml 11/23/23 22:00 11/24/23 09:14 Clobetasol Propionate 50 Ml Solution TOPICAL 3 ml BID HERNAN Administration Finasteride 5 mg 11/24/23 10:00 11/24/23 09:14 Finasteride 5 Mg Tablet PO 5 mg DAILY HERNAN Administration Furosemide 20 mg 11/24/23 10:00 11/24/23 09:14 Furosemide 20 Mg Tablet PO 20 mg DAILY HERNAN Administration Protocol Hydroxyzine Pamoate 25 mg 11/23/23 11:03 Hydroxyzine Petrona 25 Mg Capsule PO TID PRN itching/rash Hyoscyamine Sulfate 0.125 mg 11/23/23 10:59 Hyoscyamine Sulfate 0.125 Mg Tablet SL Q4H PRN bladder spasms Lisinopril 20 mg 11/24/23 10:00 11/24/23 09:15 Lisinopril 20 Mg Tablet PO 20 mg DAILY HERNAN Administration Protocol Magnesium Citrate 300 ml 11/23/23 11:25 11/23/23 14:24 Magnesium Citrate 300 Ml PO 300 ml DAILY PRN Administration Constipation Nystatin 1 applic 11/23/23 22:00 11/24/23 09:19 Nystatin Powder 15gm Bottle TOPICAL 1 applic BID HERNAN Administration Protocol Potassium Chloride 10 meq 11/24/23 10:00 11/24/23 09:14 Potassium Chloride Oral Tablet 10 Meq PO 10 meq DAILY HERNAN Administration Rivaroxaban 20 mg 11/24/23 10:00 11/24/23 09:14 Rivaroxaban 20 Mg Tablet PO 20 mg DAILY HERNAN Administration Senna/Docusate Sodium 1 tablet 11/23/23 22:00 11/24/23 09:14 Senna/Docusate Sodium 1 Tablet PO 1 tablet BID HERNAN Administration Tamsulosin HCl 0.8 mg 11/23/23 22:00 11/23/23 20:47 Tamsulosin Hcl 0.4 Mg Capsule PO 0.8 mg QHS HERNAN Administration Tolterodine Tartrate 2 mg 11/24/23 10:00 11/24/23 09:14 Tolterodine Tartrate 2 Mg Cap.Sa PO 2 mg DAILY HERNAN Administration Tuberculin PPD 0.1 ml 12/01/23 10:00 Tuberculin,Purif.Prot.Deriv. 50 Tu/Ml Vial ID 12/01/23 10:01 X1 ONE Problem List Overactive bladder (Acute) Hypokalemia (Acute) Coronary artery disease (Acute) BPH (benign prostatic hyperplasia) (Acute) Pulmonary embolism (Acute) Urinary tract infection (Acute) Encephalopathy (Acute) Hematuria (Acute) Debility (Acute) HLD (hyperlipidemia) (Acute) Right leg DVT (Chronic) Vital Signs Temp Pulse Resp BP Pulse Ox O2 Del Method 97.1 F L 85 16 101/51 L 97 Room Air 11/24/23 11:15 11/24/23 11:15 11/24/23 11:15 11/24/23 11:15 11/24/23 11:15 11/24/23 11:15 Oxygen Delivery Method Room Air Weight: 134.263 kg Body Mass Index (BMI) 37.0 Sodium 141 mmol/L (136-145) 11/24/23 05:36 Potassium 4.4 mmol/L (3.5-5.1) 11/24/23 05:36 Chloride 111 mmol/L (98-107) H 11/24/23 05:36 Carbon Dioxide 27.0 mmol/L (21.0-32.0) 11/24/23 05:36 Anion Gap 3 (5-15) L 11/24/23 05:36 BUN 27 mg/dL (7-18) H 11/24/23 05:36 Creatinine 0.80 mg/dL (0.70-1.30) 11/24/23 05:36 Est GFR (MDRD) Af Amer 117 mL/min (>60) 11/24/23 05:36 Est GFR (MDRD) Non-Af 96 mL/min (>60) 11/24/23 05:36 BUN/Creatinine Ratio 33.7 RATIO (10-20) H 11/24/23 05:36 Glucose 104 mg/dL (74-106) 11/24/23 05:36 Assessment & Plan 1. Hyperlipidemia - Atorvastatin 40 mg PO QHS. Continue to monitor for muscle pains, lipid panel (last WNL, except HDL 33 [L], on 04/04/22), and LFTs (last AST/ALT WNL).?- Please consider getting an updated lipid panel, last one done on 04/04/22. Thanks. 2. CAD/DVT Prophylaxis - Carvedilol 3.125 mg PO BID, Lisinopril 20 mg PO DAILY, Rivaroxaban 20 mg PO DAILY. Continue to monitor for new or worsening bruising or bleeding, coughing up blood or vomit that looks like coffee grounds, bloody or dark/tarry stools, and blood in the urine, hemoglobin (last 11.2 g/dL [L], on 11/24/23), HR (last 86 BPM), BP (last 101/56 BPM [L]), cough, swelling in the head/face, potassium (last K 4.4 mmol/L, on 11/24/23). 3. Rash - Clobetasol 0.05% topical cream BID. Continue to monitor for skin irritation/redness, burning/stinging, and dry skin. 4. BPH - Finasteride 5 mg PO DAILY, Tamsulosin 0.4 mg 2 caps PO QHS. Continue to monitor for impotence, sexual dysfunction, and dizziness/drowsiness. 5. Edema - Furosemide 20 mg PO DAILY. Continue to monitor for upset stomach, constipation, dry mouth, increased urination, vision changes, and potassium (see last result above). 6. Overactive bladder - Tolterodine 2 mg PO DAILY. Continue to monitor for constipation, dizziness/drowsiness, headaches, and upset stomach. 7. Hypokalemia - KCl 10 mEq PO DAILY. Continue to monitor for potassium (see las t result above). Please recommend removing this medication as the patient's potassium is WNL and the patient's chloride is 111 mmol/L [H]. 8. Bowel - Senna/Colace 8.6-50 mg PO BID, Magnesium citrate 300 mL DAILY PRN constipation. Continue to monitor for diarrhea, constipation, and PRN usage. ? ? - Resident has had 1 PRN dose?of Magnesium citrate given on 11/22. Continue to use Magnesium citrate as clinically applicable. 9. Pruritus - Hydroxyzine 25 mg PO TID PRN itching. Continue to monitor for constipation, dizziness/drowsiness, dry mouth, and PRN usage. ? ? - Resident has had 0 PRN doses of Hydroxyzine given. Pruritus?appears to be managed at this time with current therapy options. 10. Bladder spasms - Hyoscyamine 0.125 mg SL Q4H PRN bladder spasms. Continue to monitor for agitation, bloating, vision changes, upset stomach, drowsiness/dizziness, dry eyes/skin,?and PRN usage. ? ? - Resident has had 0 PRN doses of Hyoscyamine given. Bladder spasms appear to be managed at this time with current therapy options. 11. Pain - Acetaminophen 1,000 mg PO Q6H PRN pain (1-10). Continue?to monitor for PRN usage. ? ? - Resident has had 0 PRN doses of Acetaminophen given. Pain appears to be managed at this time with current therapy options. Assessment & Plan for indications treated with psychotropic medications: The patient is not currently being maintained on any psychotropic medications at time of medication list review. Medical chart and medication regimen reviewed. The following medication irregularities or issues were identified:? 1. Hyperlipidemia - Please consider getting an updated lipid panel, last panel done 04/04/22. Thanks. 2. Hypokalemia - Please recommend removing this medication as the patient's potassium is WNL and the patient's chloride is 111 mmol/L [H]. Date Date of Note:: 11/24/23
--- NOTE | 2023-11-24 14:20 | CASEMGMT ---
Social Work SW met with patient to complete initial assessment. Introduced self and role. verified/updated contacts. Patient confirmed code status as DNR-CCA, no intubation. SW to contact stepdaughter to inquire about advanced directives. Educated to [facility] insurance with NRD 12/03 and continued stay is not guaranteed with each review. Pt's goal is to return home alone with family checking in daily. Pt has dx of Dementia and encephalopathy. Pt took extra time to answer questions with difficulty in recalling information to answer assessment questions. Pt continued to get confused with proper titles of contacts. SW entered ST order. SW phoned stepdaughter, Thea, to confirm history. Thea confirmed the children listed are stepchildren, but pt refers to them as his children. Thea explains at length pt's prior medical history, PLOF and home set up. All s-children are very involved in pt's care and well-being at home, identifying pt's cognition. However, Thea stated that per [facility] information, cognitive dysfunction is the dx, not Dementia. Thea explained the family is very proactive to pt living alone and has given the pt options for AL, but pt has politely declined placement at this time, thus, family will be keeping in the home as long as possible. SW thanked sdtr for information. Inquired about pt's advanced directives. Sdtr offered to email documents and SW provided secure email address. Documents received and placed on pt's chart. SW will continue to follow for DC planning. QAMAR Monreal
[2023-11-24] MEDS: Tamsulosin HCl 0.4 MG Capsule 0.8 MG PO (21:58)
[2023-11-24] MEDS: Atorvastatin Calcium 40 MG Tablet PO (21:58)
[2023-11-24 22:06] VITALS: BP 118/68; PULSE 84; RESP 16
[2023-11-25 04:20] VITALS: PULSE 84; RESP 16; O2SAT 93
[2023-11-25] MEDS: CLOBETASOL PROPIONATE TOPICAL ×2 (08:28→21:31)
[2023-11-25] MEDS: Furosemide 20 MG Tablet PO (08:29)
[2023-11-25] MEDS: Tolterodine Tartrate 2 MG CAP.SA PO (08:29)
[2023-11-25] MEDS: Finasteride 5 MG Tablet PO (08:29)
[2023-11-25] MEDS: Rivaroxaban 20 MG Tablet PO (08:29)
[2023-11-25] MEDS: Carvedilol 3.125 MG TABLET PO ×2 (08:29→21:30)
[2023-11-25] MEDS: Senna/Docusate Sodium 1 Tablet PO ×2 (08:29→21:31)
[2023-11-25] MEDS: Menthol/Lanolin/Calamine/Znox 113 GM Tube 1 APPLIC TOPICAL ×2 (08:29→21:28)
[2023-11-25] MEDS: Lisinopril 20 MG Tablet PO (08:29)
[2023-11-25] MEDS: Potassium Chloride Oral Tablet 10 MEQ PO (08:29)
[2023-11-25] MEDS: Nystatin Powder 15gm Bottle 1 APPLIC TOPICAL ×2 (08:30→21:28)
[2023-11-25 10:37] VITALS: BP 94/48; PULSE 79; RESP 18; TEMP 36.5; O2SAT 95
[2023-11-25 15:56] VITALS: BP 101/49
[2023-11-25] MEDS: Atorvastatin Calcium 40 MG Tablet PO (21:30)
[2023-11-25] MEDS: Tamsulosin HCl 0.4 MG Capsule 0.8 MG PO (21:30)
--- NOTE | 2023-11-26 06:15 | NURSING ---
No hematuria observed or reported this shift
[2023-11-26 08:26] VITALS: BP 101/49; PULSE 83; RESP 17; TEMP 36.3; O2SAT 94
[2023-11-26] MEDS: Tolterodine Tartrate 2 MG CAP.SA PO (08:28)
[2023-11-26] MEDS: Carvedilol 3.125 MG TABLET PO ×2 (08:28→21:38)
[2023-11-26] MEDS: Potassium Chloride Oral Tablet 10 MEQ PO (08:28)
[2023-11-26] MEDS: Lisinopril 20 MG Tablet PO (08:29)
[2023-11-26] MEDS: Finasteride 5 MG Tablet PO (08:29)
[2023-11-26] MEDS: Furosemide 20 MG Tablet PO (08:29)
[2023-11-26] MEDS: Senna/Docusate Sodium 1 Tablet PO ×2 (08:29→21:40)
[2023-11-26] MEDS: Rivaroxaban 20 MG Tablet PO (08:29)
[2023-11-26] MEDS: CLOBETASOL PROPIONATE TOPICAL ×2 (08:30→21:38)
[2023-11-26] MEDS: Nystatin Powder 15gm Bottle 1 APPLIC TOPICAL ×2 (08:31→21:37)
[2023-11-26] MEDS: Menthol/Lanolin/Calamine/Znox 113 GM Tube 1 APPLIC TOPICAL ×2 (08:31→21:39)
[2023-11-26 14:55] VITALS: PULSE 78; RESP 16; O2SAT 96
[2023-11-26] MEDS: Atorvastatin Calcium 40 MG Tablet PO (21:38)
[2023-11-26] MEDS: Tamsulosin HCl 0.4 MG Capsule 0.8 MG PO (21:38)
[2023-11-26 21:48] VITALS: BP 114/67; PULSE 80; RESP 16
[2023-11-27] MEDS: Nystatin Powder 15gm Bottle 1 APPLIC TOPICAL ×2 (08:38→23:09)
[2023-11-27] MEDS: Carvedilol 3.125 MG TABLET PO ×2 (08:39→23:07)
[2023-11-27] MEDS: Potassium Chloride Oral Tablet 10 MEQ PO (08:39)
[2023-11-27] MEDS: Menthol/Lanolin/Calamine/Znox 113 GM Tube 1 APPLIC TOPICAL ×2 (08:39→23:09)
[2023-11-27] MEDS: Furosemide 20 MG Tablet PO (08:39)
[2023-11-27] MEDS: Lisinopril 20 MG Tablet PO (08:39)
[2023-11-27] MEDS: Finasteride 5 MG Tablet PO (08:39)
[2023-11-27] MEDS: Senna/Docusate Sodium 1 Tablet PO ×2 (08:39→23:09)
[2023-11-27] MEDS: Tolterodine Tartrate 2 MG CAP.SA PO (08:39)
[2023-11-27] MEDS: CLOBETASOL PROPIONATE TOPICAL ×2 (08:39→23:10)
[2023-11-27] MEDS: Rivaroxaban 20 MG Tablet PO (08:39)
[2023-11-27 09:16] VITALS: BP 106/59; PULSE 83; RESP 18; TEMP 36.4; O2SAT 95
[2023-11-27] MEDS: Furosemide 40 MG Tablet PO (17:20)
--- NOTE | 2023-11-27 19:47 | PCA ---
[employer]ESS offered HS care to patient. Patient stated they wish to wait until the morning. Patient is ADLs with therapy in the Am
[2023-11-27 23:07] VITALS: BP 113/56; PULSE 83
[2023-11-27] MEDS: Tamsulosin HCl 0.4 MG Capsule 0.8 MG PO (23:08)
[2023-11-27] MEDS: Atorvastatin Calcium 40 MG Tablet PO (23:08)
[2023-11-28 09:13] VITALS: BP 104/59; PULSE 91; RESP 16; TEMP 36.6; O2SAT 96
[2023-11-28] MEDS: Senna/Docusate Sodium 1 Tablet PO (09:19)
[2023-11-28] MEDS: Rivaroxaban 20 MG Tablet PO (09:19)
[2023-11-28] MEDS: Finasteride 5 MG Tablet PO (09:20)
[2023-11-28] MEDS: Lisinopril 20 MG Tablet PO (09:20)
[2023-11-28] MEDS: Carvedilol 3.125 MG TABLET PO ×2 (09:20→22:11)
[2023-11-28] MEDS: Tolterodine Tartrate 2 MG CAP.SA PO (09:20)
[2023-11-28] MEDS: Potassium Chloride Oral Tablet 10 MEQ PO (09:20)
[2023-11-28] MEDS: Nystatin Powder 15gm Bottle 1 APPLIC TOPICAL ×2 (09:21→22:12)
[2023-11-28] MEDS: CLOBETASOL PROPIONATE TOPICAL ×2 (09:21→22:11)
[2023-11-28] MEDS: Furosemide 40 MG Tablet PO (09:22)
[2023-11-28] MEDS: Menthol/Lanolin/Calamine/Znox 113 GM Tube 1 APPLIC TOPICAL ×2 (09:26→22:12)
[2023-11-28 11:11] VITALS: BMI 36.9
[2023-11-28 15:00] VITALS: O2SAT 95
--- NOTE | 2023-11-28 18:00 | NURSING ---
spoke with daughter via phone, concerned regarding feels pt seems more confused and has dry cough. checked pt pulse ox sat 97% on room air, pt denies any symptoms except dry cough. denies SOB, loose stools. pt alert & oriented all shift for this nurse. states he did not sleep well last night so seems slightly drowsy. afebrile. resting in recliner chair. call light in reach.
[2023-11-28 20:02] VITALS: O2SAT 94
[2023-11-28 22:05] VITALS: BP 126/56; PULSE 94; TEMP 37.4; O2SAT 94
[2023-11-28] MEDS: Senna/Docusate Sodium 1 Tablet 2 TABLET PO (22:11)
[2023-11-28] MEDS: Tamsulosin HCl 0.4 MG Capsule 0.8 MG PO (22:11)
[2023-11-28] MEDS: Atorvastatin Calcium 40 MG Tablet PO (22:16)
[2023-11-29 05:14] VITALS: PULSE 84; TEMP 37.4; O2SAT 96
[2023-11-29 07:40] LABS: Anion Gap 3 (5-15); BUN 22 mg/dL (7-18); BUN/Creat Ratio 21.6 RATIO (10-20); Calcium,Total 8.4 mg/dL (8.5-10.1); Chloride 105 mmol/L (98-107); Creatinine, Serum 1.02 mg/dL (0.70-1.30); EST Glomerular Filtration Rate 73 mL/min (>60); Est Glom Filt Rate - Afr Amer 88 mL/min (>60); Estimated Creatinine Clearance 72.44 ml/min; Glucose 94 mg/dL (74-106); Potassium 3.8 mmol/L (3.5-5.1); Sodium Level 137 mmol/L (136-145)
--- NOTE | 2023-11-29 07:50 | RAD_ITS ---
STUDY: X-RAY CHEST REASON FOR EXAM: Male, 88 years old. Non-productive cough. TECHNIQUE: PA and lateral views of the chest. COMPARISON: Comparison is made with prior study dated November 12, 2023. FINDINGS: There is hyperinflation of the lungs consistent with chronic obstructive lung disease (COPD). Mild degree of increased markings in the lingular segment of the left upper lobe suggestive of scarring. There is no demonstrated pleural abnormality. Normal size heart. Normal mediastinum and makenzie. Normal visualized pulmonary arteries. There is atherosclerotic calcification of the aortic arch with tortuosity. There are diffuse degenerative changes of the visualized thoracic spine. Normal visualized ribs, clavicles, and shoulders. There is no demonstrated abnormality of the visualized soft tissue structures of the upper abdomen. RAD/Chest PA and Lateral IMPRESSION: Hyperinflation. Mild increased markings in the lingular segment of the left upper lobe suggestive of scarring. Electronically Signed: Enrique Khan MD at 12:09 EDT ,
--- NOTE | 2023-11-29 07:54 | NURSING ---
pt off unit to xray at this time
[2023-11-29 08:03] LABS: Absolute Lymphocyte Count 1.02 X10^3/uL (0.83-4.51); Absolute Neutrophil Count 1.8 X10^3/uL (2.0-7.7); Basophil# 0.05 X10^3/uL; Basophil% 1.2 % (0-1); Eosinophil# 0.05 X10^3/uL; Eosinophils% 1.2 % (0-5); Hematocrit 32.4 % (40-54); Hemoglobin 10.6 g/dL (13.0-16.5); Lymphocyte # 1.02 X10^3/ul (0.83-4.51); Lymphocyte % 24.8 % (19-41); Mean Corp Hgb Conc 32.7 g/dL (32-36); Mean Corpuscular Volume 91.8 fL (80-94); Mean Platelet Vol. 10.2 fl (6.2-12.0); Monocyte# 1.12 X10^3/uL; Monocyte% 27.3 % (0-10); NRBC Flagged by Analyzer 0 % (0-5); Neutrophil # 1.81 X10^3/uL (2.7-7.7); Platelet Count 147 K/mm3 (150-450); RBC Distribution Width SD 46.9 fl (35.1-43.9); Red Blood Count 3.53 M/mm3 (4.6-6.2); White Blood Count 4.1 K/mm3 (4.4-11.0)
--- NOTE | 2023-11-29 08:04 | NURSING ---
pt returned from xray, RT here to swab pt resp panel
--- NOTE | 2023-11-29 08:38 | NURSING ---
pt tested positive for covid this AM daughter & pt updated, pt in isolation per rules. dr escalante updated, new order for paxlovid. pt resting in bed, call light in reach.
[2023-11-29 10:11] VITALS: BP 120/50; PULSE 80; RESP 18; TEMP 36.2; O2SAT 93
[2023-11-29] MEDS: Potassium Chloride Oral Tablet 10 MEQ PO (10:14)
[2023-11-29] MEDS: Tolterodine Tartrate 2 MG CAP.SA PO (10:14)
[2023-11-29] MEDS: Finasteride 5 MG Tablet PO (10:14)
[2023-11-29] MEDS: Acetaminophen 500 MG Tablet 1000 MG PO (10:14)
[2023-11-29] MEDS: Senna/Docusate Sodium 1 Tablet 2 TABLET PO ×2 (10:14→21:25)
[2023-11-29] MEDS: CLOBETASOL PROPIONATE TOPICAL ×2 (10:17→21:51)
[2023-11-29] MEDS: Furosemide 40 MG Tablet PO (10:17)
[2023-11-29] MEDS: Lisinopril 20 MG Tablet PO (10:17)
[2023-11-29] MEDS: Carvedilol 3.125 MG TABLET PO (10:17)
[2023-11-29] MEDS: Nystatin Powder 15gm Bottle 1 APPLIC TOPICAL ×2 (10:18→21:51)
[2023-11-29] MEDS: Menthol/Lanolin/Calamine/Znox 113 GM Tube 1 APPLIC TOPICAL ×2 (10:18→21:51)
[2023-11-29 10:26] VITALS: PULSE 87; RESP 18; O2SAT 97
--- NOTE | 2023-11-29 10:34 | NURSING ---
pt to start paxlovid today. denies any symptoms except interm dry cough. temp 97.4 oral. tylenol given generalized achiness/covid. pt had soft formed lg brown stool. scant amt of bleeding from rectum. pt assisted back to chair, call light in reach. remains in isolation for all care/therapy
--- NOTE | 2023-11-29 10:46 | CASEMGMT ---
Social Work IDT held conference call with family for pt's care plan meeting. D/T isolation the meeting was held via conference call. Discussed patient's progress in PT/OT/ST/SN. Educated to [facility] insurance with NRD 12/03 and continued stay is not guaranteed with each review. Sdtr reiterated details of pt's PLOF, home set up, and family support. SW will continue to follow to assist with DC planning. Jolly Chatterjee, SET UP MECHANIC [employer]ATIC LINE LOG MARKER
[2023-11-29] MEDS: NIRMATRELVIR/RITONAVIR 1 EACH TABLET PO ×2 (11:19→21:24)
--- NOTE | 2023-11-29 12:04 | NURSING ---
xarelto & lipitor on hold while pt taking paxlovid. flomax decreased to 0.4mg as well.
--- NOTE | 2023-11-29 15:25 | NURSING ---
pt remains in covid enhanced precautions, all care/therapy provided in pt room
--- NOTE | 2023-11-29 15:42 | CASEMGMT ---
Social Work BIMS () and PHQ-9 () completed for MDS assessment. Pt was emotional throughout assessment discussing the loss of , and recent anniversary (11/24). Pt states out of the deaths of his 3 wives, this one hurts the worst. Pt also contributes emotions to being diagnosed with COVID. SW provided ongoing emotional support, validating feelings and empathizing to pt's losses and hardships. The outcome of the PHQ-9, in addition to reports of feeling down and depressed, was pt reporting to trouble falling asleep nightly, along with daily poor appetite. Per prior conversation and POC meeting with stepdaeyal, SW inquired further about loss of appetite. Sdtr explained to pt having a different meal schedule at home, i.e. not eating breakfast, eating lunch, dinner and an evening snack. Pt explained thus far on TCU, he does eat breakfast, he eats lunch (which he eats about noon at home also), and eats dinner (which is also about 1700 at home). Pt explained he is truly not feeling hungry, sending meal trays back, and states he is losing weight; though he is not unhappy about that. SW educated to a possible intervention of medication, Remeron (if approved and agreed upon by physician), that is an antidepressant to assist with pt's mood, but is also used to assist with sleepiness and as an appetite stimulant. Pt very much agreeable to medication and happiness it is only one medication. SW explained communication will be given to the Dr to decide if that is appropriate for pt. If not, this worker will revisit with pt on other possible interventions. Pt expressed great appreciation for this worker. SW offered ongoing supportive visits, as needed. NAHID phoned sdtr to provide a courtesy update, as she was expressing concern over pt's mood in earlier POC meeting d/t COVID dx. SW explained pt reporting and exhibiting symptoms of depression, trouble sleeping and loss of appetite/not eating. Sdtr's tone was noted by this worker as not being in agreement with the medication. Sdtr explained pt is also emotional as he is a lover of life and feels things deeply; and him crying is not new. Sdtr refuted with multiple concerns r/t to what dosage would be ordered, how it would impact his age, his red cell blood count, if it would sedate him, and noted per her active Google search that the side-effects are diarrhea and dizziness, which per sdtr, pt is struggling with diarrhea currently. NAHID offered for Dr to call sdtr to answer those questions and explain further on the medication, if he agrees to order it. Sdtr stated she didn't note in the past several doctors notes from [facility] that he had been losing weight. In addition, sdtr stated d/t his normal eating schedule at home, he may not be wanting to eat and that is why he is sending the meal trays back. NAHID educated to detailed conversation with pt and pt denied those being reasons. NAHID reiterated that pt is agreeable and optimistic about possible medication order, and this worker is providing an update to the sdtr on the conversation and possible new order. Sdtr expressed concern of having an antidepressant ordered for pt d/t another elderly family member prior getting an antidepressant ordered and being sedated and sdtr wants to ensure the medications the Dr is ordering is safe for this elderly population, like Deepak. NAHID assured sdtr the Dr would not order a medication that is not safe or contraindicated for the patient, as the Dr and staff work with this population daily. Sdtr asked if pt was in the best mindset and had the cognitive abilities to make such a big decision. NAHID confirmed as per IDT and this worker's observations/evaluations, pt is able to make his own decisions and comprehend information, which dtr had confirmed earlier in pt's POC meeting. NAHID explained Dr will contact sdtr to discuss in further depth and answer questions, but again, pt is agreeable to the medication. Sdtr expressed appreciation for upcoming Dr phone call. NAHID provided written and verbal hand off to Dr. Will continue to monitor. Jolly Chatterjee, QAMAR WALKER
--- NOTE | 2023-11-29 20:47 | NURSING ---
All care provided in room due to covid isolation precautions as ordered.
[2023-11-29] MEDS: Tamsulosin HCl 0.4 MG Capsule PO (21:25)
[2023-11-29] MEDS: Mirtazapine 15 MG Tablet 7.5 MG PO (21:26)
[2023-11-29 21:49] VITALS: BP 97/45; PULSE 75; RESP 16; TEMP 36.2; O2SAT 93
--- NOTE | 2023-11-29 21:49 | NURSING ---
BP 97/45, HR 75. Dr. Martins notified via telephone. Per. Dr. Martins cold Coreg 3.125mg as ordered x1 tonight.
[2023-11-30 05:33] LABS: Hematocrit 33.6 % (40-54)
[2023-11-30] MEDS: Enoxaparin 40 MG/0.4 ML Syringe SC (06:27)
--- NOTE | 2023-11-30 06:33 | NURSING ---
Addendum entered by Isabel Hernadez 11/30/23 17:19: Dr. martins entered new order for throat lozanges PRN. Pt has no further complaints. Addendum entered by Shirley Ma 11/30/23 06:35: Written communication left for Dr. Martins regarding patient c/o sore throat Original Note: All care provided in room due to covid isolation precautions as ordered. Patient reports feeling rough with a sore throat this AM. No resp distress observed or reported. Denies requests. Call light in reach.
[2023-11-30] MEDS: NIRMATRELVIR/RITONAVIR 1 EACH TABLET PO ×2 (09:27→20:58)
[2023-11-30] MEDS: Furosemide 40 MG Tablet PO (09:28)
[2023-11-30] MEDS: Carvedilol 3.125 MG TABLET PO ×2 (09:28→20:58)
[2023-11-30] MEDS: Potassium Chloride Oral Tablet 10 MEQ PO (09:28)
[2023-11-30] MEDS: Lisinopril 20 MG Tablet PO (09:28)
[2023-11-30] MEDS: Senna/Docusate Sodium 1 Tablet 2 TABLET PO ×2 (09:28→20:58)
[2023-11-30] MEDS: Tolterodine Tartrate 2 MG CAP.SA PO (09:28)
[2023-11-30] MEDS: Finasteride 5 MG Tablet PO (09:29)
[2023-11-30] MEDS: CLOBETASOL PROPIONATE TOPICAL ×2 (10:09→20:56)
[2023-11-30] MEDS: Menthol/Lanolin/Calamine/Znox 113 GM Tube 1 APPLIC TOPICAL ×2 (10:09→20:55)
[2023-11-30] MEDS: Nystatin Powder 15gm Bottle 1 APPLIC TOPICAL ×2 (10:10→20:55)
[2023-11-30] MEDS: BENZOCAINE/MENTHOL 1 LOZENGE MUCOUS MEM ×2 (16:15→20:47)
--- NOTE | 2023-11-30 17:19 | NURSING ---
All patient care provided in-room d/t barrier precautions for Covid positive. Pt continues with complaints of sore throat and occasional dry, non-productive cough. afebrile today. Bp this morning 130/59, p-82. No complaints. Pt encouraged and agrees to increase fluid intake. Pt in pleasant mood throughout day, no comments/concerns.
[2023-11-30] MEDS: Mirtazapine 15 MG Tablet 7.5 MG PO (20:58)
[2023-11-30] MEDS: Tamsulosin HCl 0.4 MG Capsule PO (20:58)
[2023-11-30 21:00] VITALS: BP 116/59; PULSE 71; TEMP 35.7; O2SAT 93
[2023-12-01] MEDS: Enoxaparin 40 MG/0.4 ML Syringe SC (05:32)
[2023-12-01 06:30] LABS: Absolute Lymphocyte Count 1.46 X10^3/uL (0.83-4.51); Absolute Neutrophil Count 1.4 X10^3/uL (2.0-7.7); Basophil# 0.03 X10^3/uL; Basophil% 0.8 % (0-1); Eosinophil# 0.15 X10^3/uL; Eosinophils% 3.8 % (0-5); Hematocrit 33.9 % (40-54); Hemoglobin 10.7 g/dL (13.0-16.5); Lymphocyte # 1.46 X10^3/ul (0.83-4.51); Lymphocyte % 37.2 % (19-41); Mean Corp Hgb Conc 31.6 g/dL (32-36); Mean Corpuscular Hgb 29.1 pg (27.0-32.0); Mean Corpuscular Volume 92.1 fL (80-94); Mean Platelet Vol. 10.5 fl (6.2-12.0); Monocyte# 0.87 X10^3/uL; Monocyte% 22.2 % (0-10); NRBC Flagged by Analyzer 0 % (0-5); Neutrophil # 1.39 X10^3/uL (2.7-7.7); Neutrophil % 35.5 % (47-70); Platelet Count 140 K/mm3 (150-450); RBC Distribution Width CV 13.7 % (11.6-14.6); RBC Distribution Width SD 46.5 fl (35.1-43.9); Red Blood Count 3.68 M/mm3 (4.6-6.2); White Blood Count 3.9 K/mm3 (4.4-11.0)
[2023-12-01 07:07] LABS: Anion Gap 6 (5-15); BUN 21 mg/dL (7-18); BUN/Creat Ratio 23.1 RATIO (10-20); Calcium,Total 8.1 mg/dL (8.5-10.1); Chloride 107 mmol/L (98-107); Creatinine, Serum 0.91 mg/dL (0.70-1.30); EST Glomerular Filtration Rate 83 mL/min (>60); Est Glom Filt Rate - Afr Amer 101 mL/min (>60); Glucose 86 mg/dL (74-106); Potassium 3.8 mmol/L (3.5-5.1); Sodium Level 138 mmol/L (136-145)
[2023-12-01] MEDS: NIRMATRELVIR/RITONAVIR 1 EACH TABLET PO ×2 (10:47→21:37)
[2023-12-01] MEDS: Carvedilol 3.125 MG TABLET PO ×2 (10:48→21:31)
[2023-12-01] MEDS: Senna/Docusate Sodium 1 Tablet 2 TABLET PO ×2 (10:49→21:30)
[2023-12-01 10:50] VITALS: BP 114/60; PULSE 72; RESP 16; TEMP 37; O2SAT 95
[2023-12-01] MEDS: Finasteride 5 MG Tablet PO (10:50)
[2023-12-01] MEDS: Lisinopril 20 MG Tablet PO (10:50)
[2023-12-01] MEDS: Potassium Chloride Oral Tablet 10 MEQ PO (10:50)
[2023-12-01] MEDS: Tolterodine Tartrate 2 MG CAP.SA PO (10:50)
[2023-12-01] MEDS: Furosemide 40 MG Tablet PO (10:50)
[2023-12-01] MEDS: Nystatin Powder 15gm Bottle 1 APPLIC TOPICAL ×2 (10:51→21:42)
[2023-12-01] MEDS: CLOBETASOL PROPIONATE TOPICAL ×2 (10:51→21:41)
[2023-12-01] MEDS: Tuberculin,Purif.prot.deriv. 50 TU/ML Vial 0.1 ML ID (10:51)
[2023-12-01] MEDS: Menthol/Lanolin/Calamine/Znox 113 GM Tube 1 APPLIC TOPICAL ×2 (10:52→21:40)
--- NOTE | 2023-12-01 12:56 | NURSING ---
Supervisor [employer] Note; MDS for 11/30/2023 Complete
[2023-12-01] MEDS: BENZOCAINE/MENTHOL 1 LOZENGE MUCOUS MEM (16:08)
[2023-12-01] MEDS: Tamsulosin HCl 0.4 MG Capsule PO (21:31)
[2023-12-01] MEDS: Mirtazapine 15 MG Tablet 7.5 MG PO (21:34)
[2023-12-01 21:40] VITALS: BP 105/43; PULSE 75; RESP 18; TEMP 36.2; O2SAT 95
[2023-12-02] MEDS: Enoxaparin 40 MG/0.4 ML Syringe SC (06:04)
[2023-12-02] MEDS: Carvedilol 3.125 MG TABLET PO ×2 (09:47→22:48)
[2023-12-02] MEDS: Potassium Chloride Oral Tablet 10 MEQ PO (09:48)
[2023-12-02] MEDS: Furosemide 40 MG Tablet PO (09:48)
[2023-12-02] MEDS: Tolterodine Tartrate 2 MG CAP.SA PO (09:48)
[2023-12-02] MEDS: Nystatin Powder 15gm Bottle 1 APPLIC TOPICAL ×2 (09:49→23:10)
[2023-12-02] MEDS: Finasteride 5 MG Tablet PO (09:49)
[2023-12-02] MEDS: Senna/Docusate Sodium 1 Tablet 2 TABLET PO (09:49)
[2023-12-02] MEDS: NIRMATRELVIR/RITONAVIR 1 EACH TABLET PO ×2 (09:49→22:49)
[2023-12-02] MEDS: Lisinopril 20 MG Tablet PO (09:50)
[2023-12-02 10:00] VITALS: BP 102/51; PULSE 71; RESP 15; TEMP 36.4
[2023-12-02] MEDS: Menthol/Lanolin/Calamine/Znox 113 GM Tube 1 APPLIC TOPICAL ×2 (11:20→23:09)
[2023-12-02] MEDS: CLOBETASOL PROPIONATE TOPICAL ×2 (11:21→23:09)
[2023-12-02 15:16] VITALS: BP 102/51; PULSE 71; RESP 15; TEMP 36.4; O2SAT 97
[2023-12-02] MEDS: BENZOCAINE/MENTHOL 1 LOZENGE MUCOUS MEM ×2 (15:50→22:51)
--- NOTE | 2023-12-02 19:30 | NURSING ---
Patient remained in Covid isolation today. All Meds, toileting, and meals provided in room.
[2023-12-02] MEDS: Mirtazapine 15 MG Tablet 7.5 MG PO (22:48)
[2023-12-02] MEDS: Tamsulosin HCl 0.4 MG Capsule PO (22:48)
[2023-12-02] MEDS: Acetaminophen 500 MG Tablet 1000 MG PO (22:51)
[2023-12-03] MEDS: Enoxaparin 40 MG/0.4 ML Syringe SC (06:37)
[2023-12-03] MEDS: Carvedilol 3.125 MG TABLET PO ×2 (10:00→20:24)
[2023-12-03] MEDS: Nystatin Powder 15gm Bottle 1 APPLIC TOPICAL ×2 (10:00→20:30)
[2023-12-03] MEDS: Potassium Chloride Oral Tablet 10 MEQ PO (10:01)
[2023-12-03] MEDS: Tolterodine Tartrate 2 MG CAP.SA PO (10:01)
[2023-12-03] MEDS: Finasteride 5 MG Tablet PO (10:01)
[2023-12-03] MEDS: Lisinopril 20 MG Tablet PO (10:02)
[2023-12-03] MEDS: Furosemide 40 MG Tablet PO (10:02)
[2023-12-03] MEDS: NIRMATRELVIR/RITONAVIR 1 EACH TABLET PO ×2 (10:03→20:25)
[2023-12-03] MEDS: CLOBETASOL PROPIONATE TOPICAL ×2 (10:12→20:31)
[2023-12-03] MEDS: Menthol/Lanolin/Calamine/Znox 113 GM Tube 1 APPLIC TOPICAL ×2 (10:13→20:30)
[2023-12-03 11:37] VITALS: BP 115/55; PULSE 73; RESP 18; TEMP 37; O2SAT 95
--- NOTE | 2023-12-03 18:06 | NURSING ---
All care provided in room d/t Covid isolation
[2023-12-03 20:00] VITALS: PULSE 82; O2SAT 95
[2023-12-03 20:22] VITALS: BP 108/56; PULSE 82; O2SAT 95
[2023-12-03] MEDS: Tamsulosin HCl 0.4 MG Capsule PO (20:25)
[2023-12-03] MEDS: Mirtazapine 15 MG Tablet 7.5 MG PO (20:26)
[2023-12-03] MEDS: Senna/Docusate Sodium 1 Tablet 2 TABLET PO (20:33)
--- NOTE | 2023-12-04 01:51 | NURSING ---
ALL CARE PROVIDED IN ROOM DUE TO ISOLATION PRECAUTIONS. PT IN PRECAUTIONS FOR COVID.
[2023-12-04] MEDS: Enoxaparin 40 MG/0.4 ML Syringe SC (05:11)
[2023-12-04] MEDS: Furosemide 40 MG Tablet PO (09:50)
[2023-12-04] MEDS: Potassium Chloride Oral Tablet 10 MEQ PO (09:50)
[2023-12-04] MEDS: Tolterodine Tartrate 2 MG CAP.SA PO (09:50)
[2023-12-04] MEDS: Carvedilol 3.125 MG TABLET PO ×2 (09:51→22:06)
[2023-12-04] MEDS: Finasteride 5 MG Tablet PO (09:51)
[2023-12-04] MEDS: Lisinopril 20 MG Tablet PO (09:51)
[2023-12-04] MEDS: Nystatin Powder 15gm Bottle 1 APPLIC TOPICAL ×2 (09:57→22:11)
[2023-12-04] MEDS: Menthol/Lanolin/Calamine/Znox 113 GM Tube 1 APPLIC TOPICAL ×2 (09:57→22:10)
[2023-12-04] MEDS: CLOBETASOL PROPIONATE TOPICAL ×2 (10:00→22:10)
[2023-12-04 10:11] VITALS: BP 105/56; PULSE 79
--- NOTE | 2023-12-04 10:12 | NURSING ---
CALL CARE GIVEN IN ROOM DUE TO PT IN PRECAUTIONS FOR COVID.
[2023-12-04] MEDS: Rivaroxaban 20 MG Tablet PO (11:07)
[2023-12-04 16:00] VITALS: BP 111/60; PULSE 72; RESP 16; TEMP 36.6; O2SAT 97
[2023-12-04 22:00] VITALS: BP 106/50; PULSE 72; RESP 16; TEMP 35.6; O2SAT 92
[2023-12-04] MEDS: Mirtazapine 15 MG Tablet 7.5 MG PO (22:05)
[2023-12-04] MEDS: Tamsulosin HCl 0.4 MG Capsule PO (22:05)
[2023-12-04] MEDS: Senna/Docusate Sodium 1 Tablet 2 TABLET PO (22:05)
[2023-12-04 23:00] VITALS: RESP 16
--- NOTE | 2023-12-05 03:36 | NURSING ---
All care provided in room due to covid isolations as ordered, patient reports sore throat improving
[2023-12-05] MEDS: Potassium Chloride Oral Tablet 10 MEQ PO (08:21)
[2023-12-05] MEDS: Carvedilol 3.125 MG TABLET PO ×2 (08:22→22:37)
[2023-12-05] MEDS: Lisinopril 20 MG Tablet PO (08:22)
[2023-12-05] MEDS: Rivaroxaban 20 MG Tablet PO (08:22)
[2023-12-05] MEDS: Tolterodine Tartrate 2 MG CAP.SA PO (08:22)
[2023-12-05] MEDS: Finasteride 5 MG Tablet PO (08:22)
[2023-12-05] MEDS: Furosemide 40 MG Tablet PO (08:22)
[2023-12-05] MEDS: CLOBETASOL PROPIONATE TOPICAL ×2 (08:23→22:37)
[2023-12-05] MEDS: Menthol/Lanolin/Calamine/Znox 113 GM Tube 1 APPLIC TOPICAL ×2 (08:23→22:26)
[2023-12-05] MEDS: Nystatin Powder 15gm Bottle 1 APPLIC TOPICAL ×2 (08:24→22:26)
--- NOTE | 2023-12-05 09:30 | MDS.RN ---
Information for the MDS was obtained from review of the clinical record, interview of resident, staff, and direct observation of resident?s care.
[2023-12-05 11:00] VITALS: BP 103/53; PULSE 75
[2023-12-05 16:00] VITALS: BP 115/58; PULSE 75; RESP 16; TEMP 35.8; O2SAT 94
--- NOTE | 2023-12-05 18:45 | NURSING ---
Pt remained in room this shift and All care provided in pt's room d/t pt in Covid Precautions.
[2023-12-05 22:05] VITALS: BP 107/56; PULSE 80
[2023-12-05] MEDS: Senna/Docusate Sodium 1 Tablet 2 TABLET PO (22:25)
[2023-12-05] MEDS: Mirtazapine 15 MG Tablet 7.5 MG PO (22:25)
[2023-12-05] MEDS: Tamsulosin HCl 0.4 MG Capsule PO (22:26)
[2023-12-05 23:07] VITALS: PULSE 80; RESP 16; O2SAT 96
[2023-12-06] MEDS: Finasteride 5 MG Tablet PO (10:13)
[2023-12-06] MEDS: Furosemide 40 MG Tablet PO (10:13)
[2023-12-06] MEDS: Rivaroxaban 20 MG Tablet PO (10:13)
[2023-12-06] MEDS: Senna/Docusate Sodium 1 Tablet 2 TABLET PO ×2 (10:13→20:41)
[2023-12-06] MEDS: Lisinopril 20 MG Tablet PO (10:13)
[2023-12-06] MEDS: Tolterodine Tartrate 2 MG CAP.SA PO (10:13)
[2023-12-06] MEDS: Potassium Chloride Oral Tablet 10 MEQ PO (10:13)
[2023-12-06] MEDS: Carvedilol 3.125 MG TABLET PO (10:13)
[2023-12-06] MEDS: CLOBETASOL PROPIONATE TOPICAL ×2 (10:14→20:27)
[2023-12-06] MEDS: Nystatin Powder 15gm Bottle 1 APPLIC TOPICAL ×2 (10:14→20:39)
[2023-12-06] MEDS: Menthol/Lanolin/Calamine/Znox 113 GM Tube 1 APPLIC TOPICAL ×2 (10:15→20:27)
[2023-12-06 11:00] VITALS: BP 105/53; PULSE 79
[2023-12-06 15:36] VITALS: BP 108/65; PULSE 82; RESP 16; TEMP 35.6; O2SAT 94
[2023-12-06 20:30] VITALS: PULSE 84; RESP 18; O2SAT 94
[2023-12-06] MEDS: Mirtazapine 15 MG Tablet 7.5 MG PO (20:41)
[2023-12-06] MEDS: Tamsulosin HCl 0.4 MG Capsule PO (20:41)
--- NOTE | 2023-12-06 20:47 | NURSING ---
Patient ready for bed ,requests HS meds at this time, BP 83/[address] Martins contacted notified phone regarding low BP and current carvedilol order. Per Dr. Martins hold Carvedilol HS dose x1.
[2023-12-06 20:49] VITALS: BP 83/54; PULSE 84; RESP 16; O2SAT 94
--- NOTE | 2023-12-07 00:06 | NURSING ---
ALL CARE PROVIDED IN ROOM DUE TO COVID ISOLATION ORDERED
[2023-12-07] MEDS: Carvedilol 3.125 MG TABLET PO ×2 (11:11→20:13)
[2023-12-07] MEDS: Tolterodine Tartrate 2 MG CAP.SA PO (11:12)
[2023-12-07] MEDS: Potassium Chloride Oral Tablet 10 MEQ PO (11:12)
[2023-12-07] MEDS: Finasteride 5 MG Tablet PO (11:13)
[2023-12-07] MEDS: Furosemide 40 MG Tablet PO (11:13)
[2023-12-07] MEDS: Senna/Docusate Sodium 1 Tablet 2 TABLET PO ×2 (11:13→20:13)
[2023-12-07] MEDS: Rivaroxaban 20 MG Tablet PO (11:13)
[2023-12-07] MEDS: Lisinopril 20 MG Tablet PO (11:14)
[2023-12-07] MEDS: Magnesium Citrate 300 ML PO (11:27)
[2023-12-07] MEDS: Menthol/Lanolin/Calamine/Znox 113 GM Tube 1 APPLIC TOPICAL ×2 (11:28→20:14)
[2023-12-07] MEDS: CLOBETASOL PROPIONATE TOPICAL ×2 (11:28→20:14)
[2023-12-07] MEDS: Nystatin Powder 15gm Bottle 1 APPLIC TOPICAL ×2 (11:29→20:13)
[2023-12-07 16:00] VITALS: BP 123/63; PULSE 80; RESP 16; TEMP 36.6; O2SAT 96
[2023-12-07 20:00] VITALS: BP 110/67; PULSE 88
[2023-12-07 20:06] VITALS: PULSE 88; RESP 14; O2SAT 96
[2023-12-07] MEDS: Mirtazapine 15 MG Tablet 7.5 MG PO (20:13)
[2023-12-07] MEDS: Tamsulosin HCl 0.4 MG Capsule 0.8 MG PO (22:37)
[2023-12-07] MEDS: Atorvastatin Calcium 40 MG Tablet PO (22:38)
[2023-12-08 07:22] LABS: Absolute Lymphocyte Count 1.41 X10^3/uL (0.83-4.51); Absolute Neutrophil Count 3.2 X10^3/uL (2.0-7.7); Basophil% 1.6 % (0-1); Eosinophil# 0.46 X10^3/uL; Eosinophils% 7.2 % (0-5); Hematocrit 35.6 % (40-54); Hemoglobin 11.6 g/dL (13.0-16.5); Lymphocyte # 1.41 X10^3/ul (0.83-4.51); Lymphocyte % 22.2 % (19-41); Mean Corp Hgb Conc 32.6 g/dL (32-36); Mean Corpuscular Hgb 29.5 pg (27.0-32.0); Mean Corpuscular Volume 90.6 fL (80-94); Mean Platelet Vol. 9.8 fl (6.2-12.0); Monocyte# 0.99 X10^3/uL; Monocyte% 15.6 % (0-10); NRBC Flagged by Analyzer 0 % (0-5); Neutrophil # 3.16 X10^3/uL (2.7-7.7); Neutrophil % 49.8 % (47-70); Platelet Count 151 K/mm3 (150-450); RBC Distribution Width CV 13.3 % (11.6-14.6); RBC Distribution Width SD 44.5 fl (35.1-43.9); Red Blood Count 3.93 M/mm3 (4.6-6.2); White Blood Count 6.4 K/mm3 (4.4-11.0)
[2023-12-08 07:52] LABS: Anion Gap 3 (5-15); BUN 20 mg/dL (7-18); BUN/Creat Ratio 21.6 RATIO (10-20); Calcium,Total 8.6 mg/dL (8.5-10.1); Chloride 110 mmol/L (98-107); Creatinine, Serum 0.93 mg/dL (0.70-1.30); EST Glomerular Filtration Rate 82 mL/min (>60); Est Glom Filt Rate - Afr Amer 99 mL/min (>60); Estimated Creatinine Clearance 79.45 ml/min; Glucose 103 mg/dL (74-106); Potassium 4.1 mmol/L (3.5-5.1); Sodium Level 141 mmol/L (136-145)
[2023-12-08] MEDS: Carvedilol 3.125 MG TABLET PO ×2 (08:34→23:24)
[2023-12-08] MEDS: Menthol/Lanolin/Calamine/Znox 113 GM Tube 1 APPLIC TOPICAL ×2 (08:34→23:23)
[2023-12-08] MEDS: CLOBETASOL PROPIONATE TOPICAL ×2 (08:35→23:25)
[2023-12-08] MEDS: Furosemide 40 MG Tablet PO (08:35)
[2023-12-08] MEDS: Tolterodine Tartrate 2 MG CAP.SA PO (08:35)
[2023-12-08] MEDS: Potassium Chloride Oral Tablet 10 MEQ PO (08:35)
[2023-12-08] MEDS: Lisinopril 20 MG Tablet PO (08:36)
[2023-12-08] MEDS: Rivaroxaban 20 MG Tablet PO (08:36)
[2023-12-08] MEDS: Senna/Docusate Sodium 1 Tablet 2 TABLET PO ×2 (08:36→23:20)
[2023-12-08] MEDS: Finasteride 5 MG Tablet PO (08:36)
[2023-12-08] MEDS: Nystatin Powder 15gm Bottle 1 APPLIC TOPICAL ×2 (08:37→23:23)
[2023-12-08 16:00] VITALS: BP 114/60; PULSE 81; RESP 16; TEMP 36.1; O2SAT 95
--- NOTE | 2023-12-08 18:48 | NURSING ---
All medications, meals, and care provided in room d/t enhanced droplet Covid precautions.
[2023-12-08] MEDS: Mirtazapine 15 MG Tablet 7.5 MG PO (23:19)
[2023-12-08] MEDS: Atorvastatin Calcium 40 MG Tablet PO (23:20)
[2023-12-08] MEDS: Tamsulosin HCl 0.4 MG Capsule 0.8 MG PO (23:24)
[2023-12-09 09:10] VITALS: BP 97/52; PULSE 95; RESP 17; TEMP 36.5; O2SAT 93
[2023-12-09] MEDS: Menthol/Lanolin/Calamine/Znox 113 GM Tube 1 APPLIC TOPICAL ×2 (09:16→22:15)
[2023-12-09] MEDS: CLOBETASOL PROPIONATE TOPICAL ×2 (09:16→22:16)
[2023-12-09] MEDS: Tolterodine Tartrate 2 MG CAP.SA PO (09:17)
[2023-12-09] MEDS: Nystatin Powder 15gm Bottle 1 APPLIC TOPICAL ×2 (09:17→22:17)
[2023-12-09] MEDS: Potassium Chloride Oral Tablet 10 MEQ PO (09:17)
[2023-12-09] MEDS: Finasteride 5 MG Tablet PO (09:18)
[2023-12-09] MEDS: Rivaroxaban 20 MG Tablet PO (09:19)
[2023-12-09 11:50] VITALS: BP 107/57; PULSE 75
[2023-12-09] MEDS: Furosemide 40 MG Tablet PO (11:51)
[2023-12-09] MEDS: Carvedilol 3.125 MG TABLET PO ×2 (11:51→22:15)
[2023-12-09] MEDS: Lisinopril 20 MG Tablet PO (11:52)
[2023-12-09] MEDS: Mirtazapine 15 MG Tablet 7.5 MG PO (22:17)
[2023-12-09] MEDS: Atorvastatin Calcium 40 MG Tablet PO (22:17)
[2023-12-09] MEDS: Tamsulosin HCl 0.4 MG Capsule 0.8 MG PO (22:17)
[2023-12-09] MEDS: Senna/Docusate Sodium 1 Tablet 2 TABLET PO (22:18)
[2023-12-09 22:30] VITALS: BP 102/55; PULSE 81
[2023-12-10 11:30] VITALS: BP 126/42; PULSE 60; RESP 18; TEMP 35.7; O2SAT 97
[2023-12-10] MEDS: Menthol/Lanolin/Calamine/Znox 113 GM Tube 1 APPLIC TOPICAL ×2 (11:32→23:23)
[2023-12-10] MEDS: Carvedilol 3.125 MG TABLET PO ×2 (11:33→23:29)
[2023-12-10] MEDS: CLOBETASOL PROPIONATE TOPICAL ×2 (11:33→23:23)
[2023-12-10] MEDS: Tolterodine Tartrate 2 MG CAP.SA PO (11:33)
[2023-12-10] MEDS: Furosemide 40 MG Tablet PO (11:34)
[2023-12-10] MEDS: Nystatin Powder 15gm Bottle 1 APPLIC TOPICAL ×2 (11:34→23:26)
[2023-12-10] MEDS: Potassium Chloride Oral Tablet 10 MEQ PO (11:34)
[2023-12-10] MEDS: Senna/Docusate Sodium 1 Tablet 2 TABLET PO ×2 (11:36→23:26)
[2023-12-10] MEDS: Rivaroxaban 20 MG Tablet PO (11:36)
[2023-12-10] MEDS: Lisinopril 20 MG Tablet PO (11:36)
[2023-12-10] MEDS: Finasteride 5 MG Tablet PO (13:03)
[2023-12-10] MEDS: Tamsulosin HCl 0.4 MG Capsule 0.8 MG PO (23:24)
[2023-12-10] MEDS: Atorvastatin Calcium 40 MG Tablet PO (23:25)
[2023-12-10] MEDS: Mirtazapine 15 MG Tablet 7.5 MG PO (23:26)
[2023-12-10 23:30] VITALS: BP 107/56; PULSE 89
[2023-12-11] MEDS: Carvedilol 3.125 MG TABLET PO ×2 (08:28→20:53)
[2023-12-11] MEDS: CLOBETASOL PROPIONATE TOPICAL ×2 (08:28→20:54)
[2023-12-11] MEDS: Potassium Chloride Oral Tablet 10 MEQ PO (08:29)
[2023-12-11] MEDS: Furosemide 40 MG Tablet PO (08:29)
[2023-12-11] MEDS: Finasteride 5 MG Tablet PO (08:29)
[2023-12-11] MEDS: Tolterodine Tartrate 2 MG CAP.SA PO (08:29)
[2023-12-11] MEDS: Rivaroxaban 20 MG Tablet PO (08:30)
[2023-12-11] MEDS: Lisinopril 20 MG Tablet PO (08:30)
[2023-12-11] MEDS: Nystatin Powder 15gm Bottle 1 APPLIC TOPICAL ×2 (08:32→20:53)
[2023-12-11] MEDS: Menthol/Lanolin/Calamine/Znox 113 GM Tube 1 APPLIC TOPICAL ×2 (08:42→20:53)
[2023-12-11 11:29] VITALS: BP 91/40; PULSE 86; RESP 16; TEMP 36.4; O2SAT 95
[2023-12-11 16:00] VITALS: BP 97/55; PULSE 88; RESP 16; TEMP 36.2; O2SAT 99
[2023-12-11] MEDS: Atorvastatin Calcium 40 MG Tablet PO (20:54)
[2023-12-11] MEDS: Tamsulosin HCl 0.4 MG Capsule 0.8 MG PO (20:55)
[2023-12-11] MEDS: Mirtazapine 15 MG Tablet 7.5 MG PO (20:55)
[2023-12-12] MEDS: CLOBETASOL PROPIONATE TOPICAL ×2 (09:00→20:20)
[2023-12-12] MEDS: Rivaroxaban 20 MG Tablet PO (09:00)
[2023-12-12] MEDS: Tolterodine Tartrate 2 MG CAP.SA PO (09:01)
[2023-12-12] MEDS: Furosemide 40 MG Tablet PO (09:01)
[2023-12-12] MEDS: Potassium Chloride Oral Tablet 10 MEQ PO (09:01)
[2023-12-12] MEDS: Finasteride 5 MG Tablet PO (09:01)
[2023-12-12] MEDS: Lisinopril 20 MG Tablet PO (09:01)
[2023-12-12] MEDS: Menthol/Lanolin/Calamine/Znox 113 GM Tube 1 APPLIC TOPICAL ×2 (09:03→20:18)
[2023-12-12] MEDS: Nystatin Powder 15gm Bottle 1 APPLIC TOPICAL ×2 (09:03→20:18)
[2023-12-12 11:00] VITALS: BMI 36.5
[2023-12-12 11:25] VITALS: BP 96/52; PULSE 83
--- NOTE | 2023-12-12 13:02 | NURSING ---
Updated patient that a staff member tested covid positive. He doesn't want family updated.
--- NOTE | 2023-12-12 13:44 | CASEMGMT ---
Social Work SW phoned sdtr to follow up on pt's progress and DC planning. Sdtr concerned with pt's ability to don socks, pants and step over bathtub. Per OT, pt is unable to complete LE dressing tasks independently, even with AE. SW also discussed daily incontinence with sdtr. SW did phone sson who visits pt nightly at home to inquire about condition in which pt is found. Sson confirmed pt manages his own toileting tasks, dressing and showering, with no incontinence. Sdtr agreed pt's current LOF is atypical for pt, and will likely need to hire additional help for dressing or have SAMANTHA assist with a mid-day check-in for dressing assistance. Sdtr did inquire about pt's use of stool softeners, if that has been impacting pt's incontinence episodes. NAHID agreed to follow up with nursing and report back to sdtr. Sdtr appreciative. SW offered to set DC date when sdtr/pt agree. Sdtr to discuss with pt and family and will notify this worker. NAHDI will continue to follow. QAMAR MonrealW
[2023-12-12 16:00] VITALS: BP 110/49; PULSE 74; RESP 14; TEMP 36.2; O2SAT 95
[2023-12-12] MEDS: Senna/Docusate Sodium 1 Tablet 2 TABLET PO (20:19)
[2023-12-12] MEDS: Atorvastatin Calcium 40 MG Tablet PO (20:19)
[2023-12-12] MEDS: Mirtazapine 15 MG Tablet 7.5 MG PO (20:19)
[2023-12-12] MEDS: Carvedilol 3.125 MG TABLET PO (20:19)
[2023-12-12] MEDS: Tamsulosin HCl 0.4 MG Capsule 0.8 MG PO (20:19)
--- NOTE | 2023-12-13 05:38 | NURSING ---
core paster in the room doing rounds and emptying urinal ; it was noted to be dark tea colored, pt denied any sx when asked. note left for the doctor to address. pt does have a hx of hematuria
[2023-12-13 06:38] VITALS: BP 118/56; PULSE 84; RESP 17; TEMP 36.6; O2SAT 93
[2023-12-13 08:16] LABS: Hematocrit 37.5 % (40-54); Hemoglobin 12.2 g/dL (13.0-16.5)
[2023-12-13 09:21] LABS: Mucous, Urine 0 SEEN /hpf (<or=2+)
[2023-12-13 09:26] LABS: Color, Urine Amber (Yellow); Glucose, Dipstick Normal (Normal); Ketone-Dipstick Negative (Negative); Leukocyte Esterase-Dipstick 500 /ul (Negative); Nitrite-Dipstick Positive (Negative); Occult Blood-Urine 250 /ul (Negative); Protein-Dipstick 100 mg/dl (Negative); Urine Bilirubin Dipstick Negative (Negative); Urine Clarity Cloudy (Clear); Urine Urobilinogen Normal (Normal)
[2023-12-13 09:35] LABS: Bacteria 4+ /hpf (None Seen); Red Blood Cells-Urine > 100 SEEN /hpf (0-5); Squamous Epithelial Cells - UA 5-10 SEEN /hpf (0-5); White Blood Cells 50-100 SEEN /hpf (0-5)
[2023-12-13 09:36] LABS: Renal Epithelial Cells 0-5 SEEN /hpf (0-5); Transitional Epithelial - Ur 0-5 SEEN /hpf (0-5)
[2023-12-13] MEDS: 0.9% Saline Lock 10 ML Syringe IV ×2 (10:47→20:40)
[2023-12-13] MEDS: TRANEXAMIC ACID 1,000 MG in 0.9% Normal Saline (100mL Bag) 100 ML 440 MG IV (10:47)
[2023-12-13] MEDS: 0.9% Normal Saline (250mL Bag) 250 ML 15 ML IV (10:50)
[2023-12-13 10:53] VITALS: BP 105/53; PULSE 86; RESP 16; TEMP 35.9; O2SAT 95
[2023-12-13] MEDS: CLOBETASOL PROPIONATE TOPICAL ×2 (10:55→20:38)
[2023-12-13] MEDS: Menthol/Lanolin/Calamine/Znox 113 GM Tube 1 APPLIC TOPICAL ×2 (10:55→20:36)
[2023-12-13] MEDS: Carvedilol 3.125 MG TABLET PO ×2 (10:55→20:36)
[2023-12-13] MEDS: Nystatin Powder 15gm Bottle 1 APPLIC TOPICAL ×2 (10:56→20:40)
[2023-12-13] MEDS: Finasteride 5 MG Tablet PO (10:56)
[2023-12-13] MEDS: Lisinopril 20 MG Tablet PO (10:56)
[2023-12-13] MEDS: Tolterodine Tartrate 2 MG CAP.SA PO (10:56)
[2023-12-13] MEDS: Potassium Chloride Oral Tablet 10 MEQ PO (10:56)
[2023-12-13] MEDS: Senna/Docusate Sodium 1 Tablet 2 TABLET PO ×2 (10:57→20:39)
--- NOTE | 2023-12-13 11:28 | NURSING ---
Updated Dr. Martins of results, verbal order for cipro 250mg BID for 7 days, first dose now.
--- NOTE | 2023-12-13 11:55 | NURSING ---
Called consult for Dr. Grimes, spoke with Lissette. She said he in surgery today but will probably see pt tomorrow.
--- NOTE | 2023-12-13 12:47 | CASEMGMT ---
Addendum entered by Jolly Chatterjee 12/18/23 10:15: [facility] can accept pt and will contact [facility] for SOC. Addendum entered by Jolly Chatterjee 12/13/23 14:00: [facility] is unable to accommodate pt's needs at this time. SW referred to [facility]. Original Note: Social Work SW received call from [facility] stating she has arranged additional care in the home for pt starting on 12/17 and requesting pt DC on 12/17. IDT agreeable. Sdtr stated she is going to schedule pt's PCP appt for same day as DC for continuity of care. SW offered to coordinate skilled HHC. Sdtr agreed and prefers [facility] as that is where his PCP is through. If not, [facility] Pt has no DME needs and sson to transport at 1100. SW sent referral to [facility] for PT/OT/ST/SN via [facility]. Plan: DC home with assistance 12/17, [facility] PT/OT/ST/SN QAMAR Monreal
[2023-12-13] MEDS: Ciprofloxacin 250 MG Tablet PO ×2 (13:40→20:36)
[2023-12-13] MEDS: Tamsulosin HCl 0.4 MG Capsule 0.8 MG PO (20:38)
[2023-12-13] MEDS: Atorvastatin Calcium 40 MG Tablet PO (20:39)
[2023-12-13] MEDS: Mirtazapine 15 MG Tablet 7.5 MG PO (20:39)
--- NOTE | 2023-12-13 20:46 | DS.PCM_ITS ---
Providers Date of Admission: 11/23/23 Primary Care Physician: Dr. Orlando Flores MD Consultations 12/13/23 07:34 Consult: Urology Routine Consulting Provider: Constantino Grimes Reason for Consult: Gross hematuria, hx cysto clot evac. EMERGENT Consult: No MD Notified: Yes Date Notified: 12/13/23 Time Notified: 11:45 Method of Notification: Answering Service Reason For Visit: GROSS HEMATURIA Diagnosis Discharge Diagnosis (1) Debility: Status: Acute Code(s): R53.81 - Other malaise (2) Hematuria: Status: Acute Code(s): R31.9 - Hematuria, unspecified (3) Encephalopathy: Status: Acute Code(s): G93.40 - Encephalopathy, unspecified (4) Urinary tract infection: Status: Acute Code(s): N39.0 - Urinary tract infection, site not specified (5) Pulmonary embolism: Status: Acute Code(s): I26.99 - Other pulmonary embolism without acute cor pulmonale (6) Right leg DVT: Status: Chronic Code(s): I82.401 - Acute embolism and thrombosis of unspecified deep veins of right lower extremity Qualifiers: Affected thrombotic vein of extremity: unspecified vein of extremity C hronicity: chronic Qualified Code(s): I82.501 - Chronic embolism and thrombosis of unspecified deep veins of right lower extremity (7) HLD (hyperlipidemia): Status: Acute Code(s): E78.5 - Hyperlipidemia, unspecified (8) BPH (benign prostatic hyperplasia): Status: Acute Code(s): N40.0 - Benign prostatic hyperplasia without lower urinary tract symptoms (9) Coronary artery disease: Status: Acute Code(s): I25.10 - Atherosclerotic heart disease of [place] coronary artery without angina pectoris (10) Hypokalemia: Status: Acute Code(s): E87.6 - Hypokalemia (11) Overactive bladder: Status: Acute Code(s): N32.81 - Overactive bladder Plan 88 year old male with below past medical history hospitalized for hematuria, resolved with cystoscopy/clot evacuation/cauterization, complicated by encephalopathy, urinary tract infection, admitted to TCU with debility, here for rehabilitation, strengthening, prior to discharge home alone. * Debility - PT/OT. * Pain - Tylenol 1000mg q6 prn pain (1-10). * Bowel - senna/colace 1 tablet bid, Magnesium citrate 300ml daily prn. * Adult immunization - Administer pneumonia vaccine, covid vaccine, flu vaccine as appropriate. * DVT prophylaxis - on Xarelto. * Hematuria - Barclay out, consult Urology if available. * Hyperlipidemia - Atorvastatin 40mg qhs. * CAD - Coreg 3.125mg bid, Lisinopril 20mg daily, Xarelto 20mg daily. * Rash - Clobetasol cream topical bid. * BPH - Finasteride 5mg daily, Tamsulosin 0.8mg daily. * Edema - Furosemide 20mg daily. * Pruritus - Hydroxyzine 25mg tid prn. * Bladder spasms - Levsin 0.125mg sl q4h prn. * Hypokalemia - KCL 10meq daily. * Overactive bladder - Tolterodine 2mg daily. Medications at Discharge Home Medications atorvastatin 40 mg tablet 40 mg PO QHS cholesterol #30 tabs 05/05/17 tamsulosin 0.4 mg capsule 0.8 mg PO QHS urinary retention 10/27/17 carvedilol 3.125 mg tablet 3.125 mg PO BID heart 09/09/19 potassium chloride 8 mEq capsule,extended release 8 meq PO DAILY supplement #90 caps 06/13/23 oxybutynin chloride 10 mg tablet,extended release 24 hr 10 mg PO DAILY bladder 11/12/23 finasteride 5 mg tablet 5 mg PO DAILY urination 11/23/23 lisinopril 20 mg tablet 20 mg PO DAILY blood pressure 11/23/23 rivaroxaban 20 mg tablet 20 mg PO DAILY blood thinner 11/23/23 nirmatrelvir 300 mg (150 mg x2)-ritonavir 100 mg tablet,dose pack (Paxlovid) See Rx Instructions PO .COMPLEX #30 tabs 11/29/23 ciprofloxacin HCl 250 mg tablet 250 mg PO BID 2 days #4 tabs 12/13/23 mirtazapine 15 mg tablet 7.5 mg (1/2 x 15 mg) PO QHS 30 days #15 tabs 12/13/23 Hospital Course Operations None Procedures None Summary of Care Provided Minutes Spent on Discharge: 35 Hospital Course: 88 year old male with below past medical history hospitalized for hematuria, resolved with cystoscopy/clot evacuation/cauterization, complicated by encephalopathy, urinary tract infection, admitted to TCU with debility, here for rehabilitation, strengthening, prior to discharge home alone. 11/29/2023 +covid19, treated with 5 day course of Paxlovid. 11/29/2023 Mirtazapine 7.5mg qhs added for depression/appetite loss/insomnia. 12/13/2023 Hematuria recurred, tranexamic acid 1gm iv given, urinalysis c/w UTI, rx Cipro 250mg bid x 7 days, urine culture pending. Discharge home with assistance 12/18/2023, [facility] PT/OT/ST/SN. Physical Exam Const alert General Appearance: cooperative HEENT normocephalic Eyes PERRL and EOMs intact bilaterally Neck supple, no JVD and no carotid bruits Resp normal respiratory effort, normal air movement and clear to auscultation bilaterally Cardio regular rate and regular rhythm GI normal to inspection, nondistended, normoactive bowel sounds, non-tender and non-distended Extremity normal capillary refill General Extremity: Negative for edema Skin no rashes or lesions noted General Skin Exam: no breakdown Psych affect normal Appearance: appropriate Weight / BMI Weight Weight: 133.356 kg Body Mass Index (BMI) 36.5 ABG / Lab / Microbiology Data 12/13/23 07:40 12/08/23 07:17 Laboratory: Laboratory Results - last 24 hr 12/13/23 07:40: Hgb 12.2 L, Hct 37.5 L 12/13/23 09:15: Urine Color Lin, Urine Clarity Cloudy, Urine pH 6.0, Ur Specific [place] 1.020, Urine Protein 100 H, Urine Glucose (UA) Normal, Urine Ketones Negative, Urine Occult Blood 250 H, Urine Nitrite Positive H, Urine Bilirubin Negative, Urine Urobilinogen Normal, Ur Leukocyte Esterase 500 H, Urine RBC > 100 SEEN, Urine WBC 50-100 SEEN, Ur Squamous Epith Cells 5-10 SEEN, Ur Transition Epith Cell 0-5 SEEN, Ur Renal Epithelial Cell 0-5 SEEN, Urine Bacteria 4+, Urine Mucus 0 SEEN Microbiology: Microbiology 11/29/23 08:03 Mucosa - Nasopharyngeal Respiratory Panel (PCR) - Final 11/29/23 07:45 Nasal Secretion SARS-CoV-2 Antigen (Rapid) - Final SARS-CoV-2 (COVID 19) D/C Instructions Discharge Diet: No restrictions Discharge Activity: Return to Normal Activity, May Shower and Use Walker Weight Bearing Status: Weight bearing as tolerated Call your doctor if you observe: Fever of 101 or Higher, Inability to urinate, Inability to have a bowel movement, Shortness of breath, Dizziness, Fainting spells, Swelling in the ankles, Chest pain and Uncontrolled pain Additional Instructions: Discharge home with assistance 12/18/2023, [facility] PT/OT/ST/SN. Please Follow Up With: Constantino Grimes MD When: 4 weeks. Meaningful Use Info Meaningful Use Meaningful Use Diagnoses (Choose all that apply): None applicable Ischemic Stroke Statin Dosing Therapy Reference: STATIN DOSE THERAPY REFERENCE: * Patients > 75 years receive moderate or high dose statin therapy. * Patients 75 years or YOUNGER should receive HIGH intensity statin dose unless contraindicated. You will be required to document reason for non-treatment if statin daily dose does not meet guidelines. HIGH DOSE STATIN THERAPY DAILY Atorvastatin > than or = to 40 mg Rosuvastatin > than or = to 20 mg Amlodipine + Atorvastatin > than or = to 2.5/40 mg Ezetimibe + Simvastatin 10/80 mg Simvastatin 80mg Discharge Plan Admission Admit Date/Time: 11/23/23 10:34 Primary Reason for Your Visit: Debility. Attending Provider: Beni Martins Chi Primary Care Provider: Orlando Flores Consulting Providers: Constantino Grimes Instructions Additional Instructions / Restrictions: Discharge home with assistance 12/18/2023, [facility] PT/OT/ST/SN. Discharge Orders/Prescriptions Prescriptions: New Paxlovid 300 mg (150 mg x 2)-100 mg tablets,dose pack See Rx Instructions .ROUTE .COMPLEX Qty: 30 0RF Rx Instructions: take TWO 150 mg tablets of nirmatrelvir with ONE 100 mg tablet of ritonavir twice daily for 5 days ciprofloxacin HCl 250 mg Tablet 250 mg PO BID 2 Days Qty: 4 0RF mirtazapine 15 mg Tablet 7.5 mg PO QHS 30 Days Qty: 15 0RF Continued tamsulosin 0.4 mg capsule 0.8 mg PO QHS carvedilol 3.125 mg tablet 3.125 mg PO BID Rx Instructions: must administer with a meal/food potassium chloride 8 mEq capsule, extended release 8 meq PO DAILY Qty: 90 3RF atorvastatin 40 MG tablet 40 mg PO QHS Qty: 30 0RF oxybutynin chloride 10 mg tablet extended release 24hr 10 mg PO DAILY lisinopril 20 mg tablet 20 mg PO DAILY finasteride 5 mg tablet 5 mg PO DAILY rivaroxaban 20 mg tablet 20 mg PO DAILY Discontinued saw palmetto 450 mg capsule 450 mg PO BID furosemide 20 mg tablet 20 mg PO QDAY Qty: 90 3RF lisinopril 30 mg tablet 20 mg PO BID Qty: 180 3RF aspirin 81 MG tablet 81 mg PO DAILY@0800 Qty: 30 0RF saw palmetto 500 mg capsule 500 mg PO BID Rx Instructions: give with food (meal/snack) hyoscyamine sulfate 0.125 mg tablet, sublingual 0.125 mg sublingual Q4H PRN (Reason: bladder spasms) trospium 20 mg tablet 20 mg PO BID Rx Instructions: administer on an empty stomach before meals hydroxyzine HCl 25 mg tablet 25 mg PO TID PRN (Reason: itching/rash) clobetasol 0.05 % cream 1 applic topical BID Referrals / Follow Up: Orlando Flores MD [Primary Care Provider] - 12/20/23 11:40 am Disposition Disposition (needs filled in before D/C Order can be placed): Home Health Service
[2023-12-13 20:49] VITALS: BP 110/56; PULSE 75
[2023-12-14 15:10] VITALS: BP 121/56; PULSE 87; RESP 16; TEMP 36; O2SAT 7
[2023-12-14 21:30] VITALS: BP 116/62; PULSE 79
[2023-12-15 05:50] LABS: Absolute Lymphocyte Count 1.48 X10^3/uL (0.83-4.51); Absolute Neutrophil Count 3.9 X10^3/uL (2.0-7.7); Basophil# 0.05 X10^3/uL; Basophil% 0.7 % (0-1); Eosinophils% 4.4 % (0-5); Hematocrit 35.8 % (40-54); Hemoglobin 11.9 g/dL (13.0-16.5); Lymphocyte # 1.48 X10^3/ul (0.83-4.51); Lymphocyte % 21.8 % (19-41); Mean Corp Hgb Conc 33.2 g/dL (32-36); Mean Corpuscular Hgb 30.1 pg (27.0-32.0); Mean Corpuscular Volume 90.6 fL (80-94); Mean Platelet Vol. 10.4 fl (6.2-12.0); Monocyte# 0.91 X10^3/uL; Monocyte% 13.4 % (0-10); NRBC Flagged by Analyzer 0 % (0-5); Neutrophil # 3.93 X10^3/uL (2.7-7.7); Neutrophil % 57.8 % (47-70); Platelet Count 167 K/mm3 (150-450); RBC Distribution Width CV 13.3 % (11.6-14.6); RBC Distribution Width SD 44.3 fl (35.1-43.9); Red Blood Count 3.95 M/mm3 (4.6-6.2); White Blood Count 6.8 K/mm3 (4.4-11.0)
[2023-12-15 06:07] LABS: Anion Gap 4 (5-15); BUN 21 mg/dL (7-18); BUN/Creat Ratio 23.7 RATIO (10-20); Calcium,Total 8.5 mg/dL (8.5-10.1); Chloride 109 mmol/L (98-107); Creatinine, Serum 0.89 mg/dL (0.70-1.30); EST Glomerular Filtration Rate 86 mL/min (>60); Est Glom Filt Rate - Afr Amer 104 mL/min (>60); Estimated Creatinine Clearance 82.81 ml/min; Glucose 104 mg/dL (74-106); Sodium Level 139 mmol/L (136-145)
--- NOTE | 2023-12-15 11:55 | CASEMGMT ---
Social Work- SW met with pt to conduct BIMS 04/14 and PHQ9 08/25 as a part of MDS assessment. Pt showed significant improvement in PHQ9 scoring. AARON Rosa
[2023-12-15 13:50] VITALS: BP 103/57; PULSE 82; RESP 17; TEMP 36.6; O2SAT 98
[2023-12-16 07:50] VITALS: BP 99/60; PULSE 87; RESP 16; TEMP 36.4; O2SAT 97
[2023-12-16 12:21] VITALS: PULSE 84; RESP 16; O2SAT 95
[2023-12-16 22:13] VITALS: BP 85/35; PULSE 84
[2023-12-16 22:14] VITALS: BP 94/45; PULSE 83
--- NOTE | 2023-12-16 22:14 | NURSING ---
Patient's BP low at HS, refer to vitals on worklist. Consulted Dr. Martins via telephone, OK to hold HERNAN 2200 Carvedilol.
[2023-12-17 08:37] VITALS: BP 99/45; PULSE 82; RESP 16; TEMP 36.1; O2SAT 97
[2023-12-17 08:42] VITALS: BP 104/51
[2023-12-17 20:26] VITALS: BP 117/64; PULSE 80
[2023-12-17 20:44] VITALS: PULSE 80; RESP 16
[2023-12-18 05:43] VITALS: RESP 16
--- NOTE | 2023-12-18 08:49 | NURSING ---
Updated Dr. Grimes's staff that patient to DC today, they will call patient to set up f/u appt.
[2023-12-18 10:02] VITALS: BP 108/92; PULSE 78
[2023-12-18 10:41] VITALS: BP 102/54; PULSE 77; RESP 16; TEMP 36.4; O2SAT 95
[2023-12-18 11:51] VITALS: BP 102/54; PULSE 77; RESP 16; TEMP 36.4; O2SAT 95
== END 2023-12-18 11:30 | disposition home health service (06) | DRG 689 ==
PROVIDERS: Admitting Provider Family Medicine Geriatric Medicine; PCP Internal Medicine; Visit Provider Family Medicine Geriatric Medicine
DX: N39.0 Urinary tract infection, site not specified (principal); U07.1 COVID-19; G93.40 Encephalopathy, unspecified; I82.501 Chronic embolism and thrombosis of unspecified deep veins of right lower extremity; I27.21 Secondary pulmonary arterial hypertension; F32.A Depression, unspecified; E87.6 Hypokalemia; I25.10 Atherosclerotic heart disease of native coronary artery without angina pectoris; E78.5 Hyperlipidemia, unspecified; Z95.5 Presence of coronary angioplasty implant and graft; N32.81 Overactive bladder; N40.0 Benign prostatic hyperplasia without lower urinary tract symptoms; R31.9 Hematuria, unspecified; Z87.891 Personal history of nicotine dependence; Z79.01 Long term (current) use of anticoagulants; N28.89 Other specified disorders of kidney and ureter; Z66 Do not resuscitate; Z79.899 Other long term (current) drug therapy; Z79.82 Long term (current) use of aspirin; G47.00 Insomnia, unspecified; B96.89 Other specified bacterial agents as the cause of diseases classified elsewhere
CPT/HCPCS: 36415; 71046; 80048; 81001; 85014; 85018; 85025; 87077; 87086; 87088; 87186; 87426; 87633; 92507; 92523; 97110; 97116; 97129; 97130; 97162; 97166; 97530; 97533; 97535; 97802; J7050; A4216